=== PATIENT | male | born 1955 | race Caucasian/White ===

== ENCOUNTER → 2019-11-29 09:17 | Outpatient (BNVA) | payer MEDICARE, SELFPAY | PROVIDERS: Visit Provider Psychiatry & Neurology Neurology | DX: G47.33 Obstructive sleep apnea (adult) (pediatric) (principal) | CPT/HCPCS: 99214 ==

== ENCOUNTER → 2020-02-14 09:46 | Outpatient (BNVA) | payer MEDICARE, SELFPAY | PROVIDERS: PCP Family Medicine; Visit Provider Psychiatry & Neurology Neurology | DX: Z13.89 Encounter for screening for other disorder (principal) | CPT/HCPCS: Q3014 ==

== ENCOUNTER → 2020-04-10 09:19 | Outpatient (BNVA) | payer MEDICARE, SELFPAY | PROVIDERS: PCP Family Medicine; Visit Provider Psychiatry & Neurology Neurology | DX: Z13.89 Encounter for screening for other disorder (principal) | CPT/HCPCS: Q3014 ==

== ENCOUNTER 2020-07-02 07:14 | Outpatient (REF) | payer MEDICARE, SELFPAY ==
--- NOTE | ~2020-07-02 | XR_ITS ---
EXAMINATION: BILATERAL HAND X-RAY CLINICAL INFORMATION: Bilateral hand pain COMPARISON: None TECHNIQUE: 3 views of each hand FINDINGS: Bone alignment is normal. No fracture or dislocation is seen. Joint spaces are normal. Soft tissues are normal. XR/XR hand LT min 3V IMPRESSION: Unremarkable exam.
--- NOTE | ~2020-07-02 | XR_ITS ---
EXAMINATION: BILATERAL HAND X-RAY CLINICAL INFORMATION: Bilateral hand pain COMPARISON: None TECHNIQUE: 3 views of each hand FINDINGS: Bone alignment is normal. No fracture or dislocation is seen. Joint spaces are normal. Soft tissues are normal. XR/XR hand RT min 3V IMPRESSION: Unremarkable exam.
[2020-07-02 08:03] LABS: MANUAL DIFF FLAG NO
[2020-07-02 08:12] LABS: Basophils Percent Auto 0.2 % (0-2); Hematocrit 44.4 % (42-52); Hemoglobin 14.7 g/dl (14.0-18.0); Imm Gran Abs Auto 0.01 X10*3/uL (0.00-0.03); Imm Gran Pct Auto 0.2 % (0.0-0.4); Mean Corpuscular HGB Conc 33.1 g/dl (31.0-36.0); Mean Corpuscular Hemoglobin 30.8 pg (27.0-33.0); Mean Corpuscular Volume 92.9 fL (80-98); Mean Platelet Volume 9.5 fL (9.4-12.4); Monocytes Absolute Auto 0.4 X10*3/uL (0.1-1.2); Monocytes Percent Auto 9.9 % (2-11); Neutrophils Absolute Auto 1.7 X10*3/uL (2.0-8.3); Neutrophils Percent Auto 40.7 % (45-73); Platelet Count 207 X10*3/uL (160-400); Red Blood Count 4.78 X10*6/uL (4.60-5.80); Red Cell Distribution Width 12.5 % (11.0-16.0); White Blood Count 4.1 X10*3/uL (4.8-10.8)
[2020-07-02 08:35] LABS: Alanine Aminotransferase 23 U/L (0-40); Albumin Level 4.4 g/dL (3.5-5.0); Alkaline Phosphatase 71 U/L (39-117); Anion Gap 12 (12-20); Aspartate Amino Transferase 20 U/L (5-37); Bilirubin Total 0.4 mg/dL (0.0-1.0); Blood Urea Nitrogen 18 mg/dL (9-16); Calcium 9.1 mg/dL (8.4-10.2); Carbon Dioxide 27 mmol/L (22-29); Chloride 106 mmol/L (96-108); Cholesterol 199 mg/dL; Estimated Glomerular Filt Rate > 60; Glucose Fasting 100 mg/dL (60-99); HDL Cholesterol 35 mg/dL; LDL Cholesterol Calculated 128 mg/dl; Potassium 4.8 mmol/L (3.3-5.1); Rheumatoid Factor < 15.0 IU/mL (<15.0); Sodium 140 mmol/L (135-145); Triglycerides 181 mg/dL
[2020-07-02 08:56] LABS: Prostate Specific Antigen Scr 1.85 ng/mL (<0.05-4.0); TSH reflex Free T4 1.49 uIU/mL (0.32-4.0)
[2020-07-02 08:59] LABS: Glucose Urine UA NEG (NEG); Leukocyte Esterase Urine NEG (NEG); Nitrite Urine NEG (NEG); PH 5.5 (5.0-8.0); Specific Gravity - Urine >= 1.030 (1.005-1.025); Urine Blood TRACE (NEG); Urine Ketones NEG (NEG); Urine Protein NEG (NEG-TRACE)
[2020-07-02 09:01] LABS: Appearance Urine CLEAR; Color Urine YELLOW
[2020-07-02 09:14] LABS: RBC Urine 0-2 /HPF (0); WBC Urine 0 /HPF (0-4)
[2020-07-02 09:23] LABS: Erythrocyte Sedimentation Rate 7 MM/HR (0-15)
[2020-07-04 11:27] LABS: CRP High Sensitivity 1.8 mg/L
[2020-07-06 19:47] LABS: Testosterone, Free 48.7 pg/mL (35.0-155.0); Testosterone, Total 358 ng/dL (250-1100)
== END 2020-07-02 07:15 | disposition home or self-care (01) ==
LOC: HO.LAB 07:14
PROVIDERS: PCP Family Medicine; Visit Provider Family Medicine
DX: Z00.00 Encounter for general adult medical examination without abnormal findings (principal); M79.641 Pain in right hand; M79.642 Pain in left hand; N52.9 Male erectile dysfunction, unspecified; N40.0 Benign prostatic hyperplasia without lower urinary tract symptoms; Z12.5 Encounter for screening for malignant neoplasm of prostate
CPT/HCPCS: 36415; 73130; 80053; 80061; 81001; 81003; 84153; 84402; 84403; 84443; 85025; 85652; 86141; 86431

== ENCOUNTER → 2020-10-30 09:37 | Outpatient (BNVA) | payer MEDICARE, SELFPAY | PROVIDERS: PCP Family Medicine; Visit Provider Psychiatry & Neurology Neurology | DX: G47.33 Obstructive sleep apnea (adult) (pediatric) (principal) | CPT/HCPCS: Q3014 ==

== ENCOUNTER 2020-12-11 08:39 | Outpatient (REF) | payer MEDICARE, SELFPAY ==
[2020-12-11 12:26] LABS: Cholesterol 208 mg/dL; HDL Cholesterol 39 mg/dL; LDL Cholesterol Calculated 140 mg/dl; Triglycerides 145 mg/dL
== END 2020-12-11 08:40 | disposition home or self-care (01) ==
LOC: HO.WFDLDS 08:39
PROVIDERS: PCP Family Medicine; Visit Provider Family Medicine
DX: Z00.00 Encounter for general adult medical examination without abnormal findings (principal); E78.6 Lipoprotein deficiency
CPT/HCPCS: 36415; 80061

== ENCOUNTER → 2021-01-22 10:20 | Outpatient (BNVA) | payer MEDICARE, SELFPAY | PROVIDERS: PCP Family Medicine; Referring Provider Family Medicine; Visit Provider Psychiatry & Neurology Neurology | DX: G47.33 Obstructive sleep apnea (adult) (pediatric) (principal) | CPT/HCPCS: Q3014 ==

== ENCOUNTER 2021-07-15 07:53 | Outpatient (REF) | payer MEDICARE, SELFPAY ==
[2021-07-15 11:07] LABS: MANUAL DIFF FLAG NO
[2021-07-15 11:17] LABS: Hematocrit 42.2 % (42.0-52.0); Hemoglobin 13.7 g/dl (14.0-18.0); Imm Gran Abs Auto 0.02 X10*3/uL (0.00-0.03); Imm Gran Pct Auto 0.4 % (0.0-0.4); Lymphocytes Absolute Auto 2.1 X10*3/uL (1.2-4.9); Lymphocytes Percent Auto 45.5 % (20-40); Mean Corpuscular HGB Conc 32.5 g/dl (31.0-36.0); Mean Corpuscular Hemoglobin 30.9 pg (27.0-33.0); Monocytes Absolute Auto 0.5 X10*3/uL (0.1-1.2); Monocytes Percent Auto 10.3 % (2-11); Neutrophils Percent Auto 43.8 % (45-73); Platelet Count 214 X10*3/uL (160-400); Red Blood Count 4.44 X10*6/uL (4.60-5.80); Red Cell Distribution Width 13.6 % (11.0-16.0); White Blood Count 4.7 X10*3/uL (4.8-10.8)
[2021-07-15 11:20] LABS: Appearance Urine HAZY; Color Urine YELLOW; Glucose Urine UA NEG (NEG); Leukocyte Esterase Urine NEG (NEG); Nitrite Urine NEG (NEG); PH 5.5 (5.0-8.0); Specific Gravity - Urine >= 1.030 (1.005-1.025); Urine Blood NEG (NEG); Urine Ketones NEG (NEG); Urine Protein NEG (NEG-TRACE)
[2021-07-15 11:57] LABS: Alanine Aminotransferase 50 U/L (0-40); Alkaline Phosphatase 59 U/L (39-117); Anion Gap 11 (12-20); Aspartate Amino Transferase 33 U/L (5-37); Bilirubin Total 0.7 mg/dL (0.0-1.0); Blood Urea Nitrogen 16 mg/dL (9-16); Calcium 8.9 mg/dL (8.4-10.2); Carbon Dioxide 29 mmol/L (22-29); Chloride 106 mmol/L (96-108); Cholesterol 202 mg/dL; Estimated Glomerular Filt Rate > 60; Glucose Fasting 106 mg/dL (60-99); HDL Cholesterol 42 mg/dL; LDL Cholesterol Calculated 128 mg/dl; Potassium 4.9 mmol/L (3.3-5.1); Sodium 141 mmol/L (135-145); Total Protein 6.5 g/dL (6.5-8.0); Triglycerides 161 mg/dL
[2021-07-15 12:11] LABS: Prostate Specific Antigen Scr 1.09 ng/mL (<0.05-4.0); TSH reflex Free T4 1.52 uIU/mL (0.32-4.0)
== END 2021-07-15 07:54 | disposition home or self-care (01) ==
LOC: HO.WFDLDS 07:53
PROVIDERS: Visit Provider Family Medicine
DX: Z00.00 Encounter for general adult medical examination without abnormal findings (principal); Z12.5 Encounter for screening for malignant neoplasm of prostate
CPT/HCPCS: 36415; 80053; 80061; 81003; 84153; 84443; 85025

== ENCOUNTER 2021-08-16 07:15 | Outpatient (REF) | payer MEDICARE, SELFPAY ==
[2021-08-16 11:02] LABS: MANUAL DIFF FLAG NO
[2021-08-16 11:15] LABS: Hematocrit 46.9 % (42.0-52.0); Imm Gran Abs Auto 0.03 X10*3/uL (0.00-0.03); Imm Gran Pct Auto 0.3 % (0.0-0.4); Lymphocytes Absolute Auto 4.5 X10*3/uL (1.2-4.9); Lymphocytes Percent Auto 49.7 % (20-40); Mean Corpuscular Hemoglobin 30.4 pg (27.0-33.0); Mean Corpuscular Volume 95.1 fL (80.0-98.0); Mean Platelet Volume 9.7 fL (9.4-12.4); Monocytes Absolute Auto 0.8 X10*3/uL (0.1-1.2); Monocytes Percent Auto 8.7 % (2-11); Neutrophils Absolute Auto 3.7 x10*3/uL (2.0-8.3); Neutrophils Percent Auto 41.3 % (45-73); Platelet Count 261 X10*3/uL (160-400); Red Blood Count 4.93 X10*6/uL (4.60-5.80); Red Cell Distribution Width 13.7 % (11.0-16.0)
[2021-08-16 11:28] LABS: Estimated Average Glucose 100 mg/dL; Hemoglobin A1c % 5.1 %
[2021-08-16 11:34] LABS: Alanine Aminotransferase 20 U/L (0-40); Albumin Level 4.5 g/dL (3.5-5.0); Alkaline Phosphatase 62 U/L (39-117); Anion Gap 13 (12-20); Aspartate Amino Transferase 14 U/L (5-37); Bilirubin Total < 0.2 mg/dL (0.0-1.0); Blood Urea Nitrogen 18 mg/dL (9-16); Calcium 9.2 mg/dL (8.4-10.2); Carbon Dioxide 29 mmol/L (22-29); Chloride 104 mmol/L (96-108); Cholesterol 239 mg/dL; Estimated Glomerular Filt Rate > 60; Glucose Fasting 104 mg/dL (60-99); HDL Cholesterol 55 mg/dL; Iron 71 mcg/dL (45-160); LDL Cholesterol Calculated 156 mg/dl; Percent Iron Saturation 21 % (15-50); Potassium 4.6 mmol/L (3.3-5.1); Sodium 141 mmol/L (135-145); Total Iron Binding Capacity 335 mcg/dL (228-428); Total Protein 7.3 g/dL (6.5-8.0); Triglycerides 141 mg/dL; Unsaturated Iron Binding 264 ug/dL
[2021-08-16 11:55] LABS: TSH reflex Free T4 2.81 uIU/mL (0.32-4.0)
[2021-08-16 12:07] LABS: Folate 10.4 ng/mL (> or = 4.0); Vitamin B12 427 pg/mL (200-900)
== END 2021-08-16 07:16 | disposition home or self-care (01) ==
LOC: HO.WFDLDS 07:15
PROVIDERS: PCP Family Medicine; Visit Provider Family Medicine
DX: Z00.00 Encounter for general adult medical examination without abnormal findings (principal); E53.8 Deficiency of other specified B group vitamins; R73.01 Impaired fasting glucose; D64.9 Anemia, unspecified
CPT/HCPCS: 36415; 80053; 80061; 82607; 82746; 83036; 83540; 84443; 85025

== ENCOUNTER → 2021-09-20 09:03 | Outpatient (BNVA) | payer MEDICARE, SELFPAY | PROVIDERS: PCP Family Medicine; Visit Provider Nurse Practitioner Family | DX: G47.33 Obstructive sleep apnea (adult) (pediatric) (principal) | CPT/HCPCS: Q3014 ==

== ENCOUNTER 2022-10-06 15:43 | Outpatient (AMB) | payer MEDICARE, SELFPAY ==
[2022-10-06 15:51] VITALS: BP 124/78; PULSE 66; O2SAT 96; BMI 26.3
--- NOTE | 2022-10-06 15:51 | MHC.PC.OV ---
Vital Signs 10/06/22 15:51 Height 6 ft Weight 194 lb BMI 26.3 BP 124/78 Blood Pressure Location Lt brachial Position Standing Pulse 66 Pulse Source Pulse Oximeter Pulse Oximetry (%) 96 Oxygen Delivery Method Room Air Intake Visit Reasons: Extended exam Intake Note: Patient is here with concern of bran fog, and vertigo for comes in waves, and lasts about 10 seconds. Allergies aspirin [ASPIRIN] Allergy (Severe, Verified 10/06/22 15:55) RASH SWELLING, hives, swelling Tobacco use date assessed: 11/26/21 Fall risk assessment: No Falls in past year Last assessed Fall Risk: 10/06/22 Dental Screening Dental Screen Date: 10/06/22 Did you have a dental visit in the last 12 months?: Yes Did you have a dental problem in the last 6 months where you did not have access to dental care?: No Was dental information given to patient?: Patient has dentist HPI Extended exam HPI Details 67 y/o male presents for an extended exam with f/u labs and health maintenance. No recent labs to review. He reports ongoing hives and had been covered in [employer] last night. He has been seeing an bad cloth checker for a year and has trialed multiple treatments but states nothing has worked. He suspects it may be something he has been eating. He reports he is on prednisone. HPI Comments History of Present Illness Details Documentation assistance for Erik Azul MD, was provided by Jeff Williamson,? [employer] on 10/06/2022 4:26 PM MARINA. Pauline, Dr. Azul, have read, observed, and verified documentation.? PFSH Medical History Hx of cholelithiasis Surgical History History of back surgery Hx of cholecystectomy Hx of hernia repair Family History Father Renal failure Mother Cancer of pancreas Social History Alcohol intake: current Alcohol intake frequency: holidays/special occasions only Patient Tobacco Use Status: Never used Tobacco e-Cigarette/Vaping Use: Never Used Second Hand Smoke Exposure: No service: No Current occupational exposures/hazards: No Cognitive needs: No Hearing needs: No Vision needs: No Questionnaire TORY-7 AMB Questionnaire TORY-7 Date TORY - 7 assessed: 10/06/22 Feeling nervous, anxious, or on edge: 2 = More than half the days Not being able to stop or control worryin = Not at all Worrying too much about different things: 0 = Not at all Trouble relaxin = Not at all Being so restless that it is hard to sit still: 0 = Not at all Becoming easily annoyed or irritable: 0 = Not at all Feeling afraid as if something awful might happen: 0 = Not at all Total TORY-7 score (0-4 normal; 5-9 mild; 10-14 moderate; 15-21 severe): 2 Source: Developed by Drs. Franki Galvez, Juliann Hoover, Jadon Mathis and colleagues, with an educational christy from [employer]. Review of Systems Const Denies chills, Denies fatigue, Denies fever(s), Denies headache(s) and Denies weakness Eyes Denies change in vision ENT Denies dizziness, Denies headache(s), Denies hearing loss, Denies nasal congestion, Denies sinus pain, Denies sinus pressure and Denies sore throat Card Denies chest pain, Denies lightheadedness, Denies dyspnea and Denies other (palpitations) Resp Denies cough, Denies dyspnea and Denies wheezing GI Denies abdominal pain, Denies melena, Denies hematochezia, Denies change in bowel habits, Denies dyspepsia and Denies nausea Denies hematuria and Denies dysuria Musc Denies abnormal gait, Denies myalgias, Denies arthralgias, Denies numbness and Denies tingling Skin/Breast Reports rash Neuro Denies abnormal gait, Denies dizziness, Denies headache(s), Denies memory loss, Denies numbness, Denies Sensory deficit (Neuro), Denies tingling and Denies weakness Psych Denies anxiety, Denies depression and Denies memory loss Endo Denies cold intolerance, Denies fatigue, Denies heat intolerance, Denies polydipsia and Denies polyuria Paul/Lymph Denies easy bleeding and Denies easy bruising Aller/Immun Denies wheezing Physical exam (Primary Care) Vital Signs: Last Vital Signs Pulse 66 10/06/22 15:51 BP 124/78 10/06/22 15:51 Pulse Ox 96 10/06/22 15:51 Oxygen Delivery Method Room Air 10/06/22 15:51 BMI result Body Mass Index 26.3 Tobacco/Smoking Status: Tobacco use Status Tobacco use date assessed 11/26/21 10/06/22 15:59 Patient Tobacco Use Status Never used Tobacco 10/06/22 15:59 e-Cigarette/Vaping Use Never Used 10/06/22 15:59 Const General: no acute distress, well developed, alert and awake Nutritional Appearance: well nourished Orientation/consciousness: patient oriented x3 HENMT Head: Yes normocephalic and Yes atraumatic Ears: hearing grossly normal bilaterally and TM's normal bilaterally General nose exam: Normal external nose present and Normal nares present Mouth: Normal oral and palatal mucosa present and moist mucous membranes Teeth and gingiva: dentition normal Throat: Yes posterior oropharynx normal Eyes General: appearance normal, both eyes and all related structures Pupils: Equal, round and reactive pupils present and Pupil accommodation reflex normal EOM: EOMs intact bilaterally Neck Neck: Yes normal visual inspection, Yes no lymphadenopathy and Yes trachea midline Thyroid: Thyroid normal Carotids: no bruits Lymphatic: no lymphadenopathy noted Chest Chest palpation & inspection: normal inspection of the chest Resp Effort & Inspection: normal respiratory effort Auscultation: clear to auscultation bilaterally Cardio Rate: regular rate Rhythm: regular rhythm Heart sounds: S1 normal heart sound present, S2 normal heart sound present, no gallops, no murmurs and no rubs Bruits: no abdominal aortic bruits and no carotid bruits GI Palpation (GI): No Abdominal aortic bruit present, Soft to palpation, nontender, No hepatosplenomegaly present and No Rebound tenderness present Auscultation: normal bowel sounds General: Yes no CVA tenderness Back/Spine/Pelvis Back: no CVA tenderness Cervical Spine: cervical ROM normal and No Cervical spine tenderness Thoracic/Lumbar Spine: thoraco-lumbar ROM normal, No pain with thoraco-lumbar ROM, No thoracic spinal tenderness and No lumbar spinal tenderness Skin Other: Hives on his body, face Lesions: no lesions Trauma: no lacerations or abrasions Wounds: no wounds Nails: normal Neuro General: patient oriented x3 Cranial nerves: Yes Equal, round and reactive pupils present Cognition (Neuro): normal cognition Gait exam (Neuro): Normal gait present Motor exam (neuro): 5/5 motor strength present throughout Sensory Exam: No Sensory deficit (Neuro) Deep tendon reflexes (DTR's): Right patellar reflex intensity grade: 2+ and Left patellar reflex intensity grade: 2+ Extrem General: Yes normal to inspection and No edema Psych Appearance: grossly normal Affect: normal affect Attitude: cooperative Thought process: Normal thought process present Assessment and Plan Assessment & Plan (1) Urticaria: Code(s): L50.9 - Urticaria, unspecified Plan: Ongoing chronic urticaria Followed by immunology. Patient feels that this is due to gastrointestinal issues and requests a referral to gastroenterology. Referral is made Will also run tests for inflammatory markers and some autoimmune markers. (2) Memory changes: Code(s): R41.3 - Other amnesia Plan: Follow-up by neuropsych who feels that many of the medications he is using may be affecting memory Also sleep apnea and is using his CPAP. (3) Screening for prostate cancer: Code(s): Z12.5 - Encounter for screening for malignant neoplasm of prostate Plan: Check PSA (4) Screening for colon cancer: Code(s): Z12.11 - Encounter for screening for malignant neoplasm of colon Plan: Referred to GI (5) Adult general medical exam: Code(s): Z00.00 - Encounter for general adult medical examination without abnormal findings Plan: 67-year-old male presents for an extended exam Orders: Orders Comprehensive [place]. Panel Fast 10/07/22 Z00.00 - Encounter for general adult medical examination without abnormal findings Lipid Panel 10/07/22 Z00.00 - Encounter for general adult medical examination without abnormal findings Prostate Specific Antigen Scr 10/07/22 Z12.5 - Encounter for screening for malignant neoplasm of prostate TSH reflex Free T4 10/07/22 Z00.00 - Encounter for general adult medical examination without abnormal findings Microalbumin, Random (w Creat) 10/07/22 I10 - Essential (primary) hypertension Complete Blood Count Auto Diff 10/07/22 Z00.00 - Encounter for general adult medical examination without abnormal findings UA and rflx microscopic 10/07/22 Z00.00 - Encounter for general adult medical examination without abnormal findings Cyclic Citrullinated Peptide 10/07/22 L50.9 - Urticaria, unspecified CRP High Sensitivity 10/07/22 L50.9 - Urticaria, unspecified Rheumatoid Factor 10/07/22 L50.9 - Urticaria, unspecified Erythrocyte Sedimentation Rate 10/07/22 L50.9 - Urticaria, unspecified ANNIKA Reflex Titer and Pattern 10/07/22 L50.9 - Urticaria, unspecified Scleroderma 70 Antibody 10/07/22 L50.9 - Urticaria, unspecified Transglutaminase IgA 10/07/22 L50.9 - Urticaria, unspecified Transglutaminase Ab IgG 10/07/22 L50.9 - Urticaria, unspecified Coding Level of Care Code Est Pt Level 4 (39358) Diagnoses Urticaria L50.9 Memory changes R41.3 Screening for prostate cancer Z12.5 Screening for colon cancer Z12.11 Adult general medical exam Z00.00
== END 2022-10-06 17:02 | disposition home or self-care (01) ==
PROVIDERS: Visit Provider Family Medicine
DX: L50.9 Urticaria, unspecified (principal); R41.3 Other amnesia; Z12.5 Encounter for screening for malignant neoplasm of prostate; Z12.11 Encounter for screening for malignant neoplasm of colon; Z00.00 Encounter for general adult medical examination without abnormal findings
CPT/HCPCS: 99214

== ENCOUNTER 2022-10-07 07:03 | Outpatient (REF) | payer MEDICARE, SELFPAY ==
[2022-10-07 11:28] LABS: MANUAL DIFF FLAG NO
[2022-10-07 11:35] LABS: Appearance Urine Clear; Color Urine Yellow; Glucose Urine UA Negative (Negative); Leukocyte Esterase Urine Negative (Negative); Nitrite Urine Negative (Negative); PH 5.5 (5.0-9.0); Specific Gravity - Urine 1.025 (1.005-1.025); Urine Blood Negative (Negative); Urine Ketones Trace mg/dL (Negative); Urine Protein Negative (Neg-Trace)
[2022-10-07 11:56] LABS: Basophils Percent Auto 0.2 % (0-2); Hematocrit 41.8 % (42.0-52.0); Hemoglobin 13.8 g/dl (14.0-18.0); Imm Gran Abs Auto 0.02 X10*3/uL (0.00-0.03); Imm Gran Pct Auto 0.3 % (0.0-0.4); Lymphocytes Absolute Auto 2.9 X10*3/uL (1.2-4.9); Mean Corpuscular Volume 93.9 fL (80.0-98.0); Monocytes Absolute Auto 0.5 X10*3/uL (0.1-1.2); Monocytes Percent Auto 8.1 % (2-11); Neutrophils Absolute Auto 2.8 x10*3/uL (2.0-8.3); Neutrophils Percent Auto 44.4 % (45-73); Platelet Count 260 X10*3/uL (160-400); Red Blood Count 4.45 X10*6/uL (4.60-5.80); Red Cell Distribution Width 13.2 % (11.0-16.0); White Blood Count 6.2 X10*3/uL (4.8-10.8)
[2022-10-07 12:18] LABS: Alanine Aminotransferase 15 U/L (0-40); Albumin Level 4.2 g/dL (3.5-5.0); Alkaline Phosphatase 50 U/L (39-117); Anion Gap 13 (12-20); Aspartate Amino Transferase 17 U/L (5-37); Bilirubin Total 0.5 mg/dL (0.0-1.0); Blood Urea Nitrogen 17 mg/dL (9-16); Calcium 9.7 mg/dL (8.4-10.2); Carbon Dioxide 26 mmol/L (22-29); Chloride 108 mmol/L (96-108); Cholesterol 193 mg/dL (<200); Estimated Glomerular Filt Rate > 60; Glucose Fasting 91 mg/dL (60-99); HDL Cholesterol 47 mg/dL (>40); LDL Cholesterol Calculated 124 mg/dL (<100); Potassium 3.9 mmol/L (3.3-5.1); Sodium 143 mmol/L (135-145); Total Protein 6.7 g/dL (6.5-8.0); Triglycerides 111 mg/dL (<150)
[2022-10-07 12:21] LABS: TSH reflex Free T4 3.28 uIU/mL (0.32-4.0)
[2022-10-07 12:23] LABS: Microalbum/Creatinine Ratio Ur 2.6 ug/mg cr (<30)
[2022-10-07 12:26] LABS: Prostate Specific Antigen Scr 1.06 ng/mL (<0.05-4.0)
[2022-10-07 12:31] LABS: Prostate Specific Antigen Scr 1.09 ng/mL (<0.05-4.0); Rheumatoid Factor < 13.0 IU/mL (<15.0)
[2022-10-07 12:39] LABS: Erythrocyte Sedimentation Rate 4 MM/HR (0-15)
[2022-10-08 14:48] LABS: CRP High Sensitivity 0.6 mg/L
[2022-10-09 13:54] LABS: Scleroderma 70 Antibody <1.0 NEG AI (<1.0 NEG)
[2022-10-09 14:28] LABS: Anti Nuclear Antibody Screen NEGATIVE (NEGATIVE)
[2022-10-09 15:24] LABS: Cyclic Citrullinated Peptide <16 UNITS
== END 2022-10-07 07:04 | disposition home or self-care (01) ==
LOC: HO.WFDLDS 07:03
PROVIDERS: Visit Provider Family Medicine
DX: Z00.00 Encounter for general adult medical examination without abnormal findings (principal); Z12.5 Encounter for screening for malignant neoplasm of prostate; I10 Essential (primary) hypertension; L50.9 Urticaria, unspecified
CPT/HCPCS: 36415; 80053; 80061; 81003; 82043; 84153; 84443; 85025; 85652; 86038; 86141; 86200; 86235; 86431

== ENCOUNTER 2022-10-22 14:36 | Outpatient (AMB) | payer MEDICARE, SELFPAY ==
--- NOTE | 2022-10-22 14:23 | MHC.PC.OV ---
Intake Visit Reasons: f/u CPE-labs Intake Note: Patient reports this telehealth appointment is to discuss labs drawn on 10/07/22. Allergies aspirin [ASPIRIN] Allergy (Severe, Verified 10/22/22 14:25) RASH SWELLING, hives, swelling Tobacco use date assessed: 10/22/22 Fall risk assessment: No Falls in past year Last assessed Fall Risk: 10/22/22 Dental Screening Dental Screen Date: 10/22/22 Did you have a dental visit in the last 12 months?: Yes Did you have a dental problem in the last 6 months where you did not have access to dental care?: No Was dental information given to patient?: Patient has dentist HPI f/u CPE-labs HPI Details 67 y/o male presents to f/u CPE-labs via telemedicine. Labs were drawn 10/07/22. Reviewed labs with pt. Mild anemia. Triglycerides 111. TC 193. LDL 124. HDL 47. He continues to work on his diet and notes he has lost about 20 lbs. [facility] Medical History Hx of cholelithiasis Surgical History History of back surgery Hx of cholecystectomy Hx of hernia repair Family History Father Renal failure Mother Cancer of pancreas Social History Housing: House Alcohol intake: current Alcohol intake frequency: holidays/special occasions only Patient Tobacco Use Status: Never used Tobacco e-Cigarette/Vaping Use: Never Used Second Hand Smoke Exposure: No service: No Current occupational exposures/hazards: No Cognitive needs: No Hearing needs: No Vision needs: No Questionnaire TORY-7 AMB Questionnaire TORY-7 Date TORY - 7 assessed: 10/06/22 Source: Developed by Drs. Franki Galvez, Juliann Hoover, Jadon Mathis and colleagues, with an educational christy from [employer]. Review of Systems Const Denies chills, Denies fatigue, Denies fever(s), Denies headache(s) and Denies weakness ENT Denies dizziness and Denies headache(s) Card Denies dyspnea Resp Denies cough, Denies dyspnea, Denies wheezing and Denies other (shortness of breath) Musc Denies numbness and Denies tingling Neuro Denies dizziness, Denies headache(s), Denies numbness, Denies tingling and Denies weakness Psych Denies anxiety and Denies depression Endo Denies fatigue Aller/Immun Denies wheezing Physical exam (Primary Care) Tobacco/Smoking Status: Tobacco use Status Tobacco use date assessed 10/22/22 10/22/22 14:27 Patient Tobacco Use Status Never used Tobacco 10/22/22 14:27 e-Cigarette/Vaping Use Never Used 10/22/22 14:27 Telehealth Telehealth Location of provider rendering services: practice address Location of patient: address on file Patient Identification confirmed using: Name, : Yes Telehealth method: voice only Patient verbally consented to treatment: Yes Patient verbally consented to billing insurance company: Yes Patient informed of any privacy concerns related to visit: Yes Minutes spent on Phone/Video with Pt.: 15 Assessment and Plan Assessment & Plan (1) Mild anemia: Code(s): D64.9 - Anemia, unspecified Plan: Patient denies bleeding Repeat blood counts (2) Screening for prostate cancer: Code(s): Z12.5 - Encounter for screening for malignant neoplasm of prostate Plan: PSA within normal limits (3) Urticaria: Code(s): L50.9 - Urticaria, unspecified Plan: Ongoing urticaria Inflammatory markers negative and initial autoimmune markers negative Patient was seen by immunology and he says this did not find any problems or help Has seen dermatology He has been referred to Rheumatology but he has not heard back from them yet. Will ask the office to check on the status of this referral (4) Screening for colon cancer: Code(s): Z12.11 - Encounter for screening for malignant neoplasm of colon Plan: Patient id as had polyps at last colonoscopy which he thinks was about [address] Montes. Will get report Orders: Orders Complete Blood Count Auto Diff Today D64.9 - Anemia, unspecified, Z00.00 - Encounter for general adult medical examination without abnormal findings Reticulocyte Count Today D64.9 - Anemia, unspecified Vitamin B12 and Folate Today D64.9 - Anemia, unspecified, E53.8 - Deficiency of other specified B group vitamins Basic Metabolic Panel Today D64.9 - Anemia, unspecified, Z00.00 - Encounter for general adult medical examination without abnormal findings IRON PROFILE Today D64.9 - Anemia, unspecified Coding Level of Care Code Tele Est Pt Level 2 (23996) Diagnoses Mild anemia D64.9 Screening for prostate cancer Z12.5 Urticaria L50.9 Screening for colon cancer Z12.11
== END 2022-10-22 16:08 | disposition home or self-care (01) ==
PROVIDERS: PCP Family Medicine; Visit Provider Family Medicine
DX: D64.9 Anemia, unspecified (principal); Z12.5 Encounter for screening for malignant neoplasm of prostate; L50.9 Urticaria, unspecified; Z12.11 Encounter for screening for malignant neoplasm of colon
CPT/HCPCS: 99442

== ENCOUNTER 2022-10-24 09:02 | Outpatient (REF) | payer MEDICARE, SELFPAY ==
[2022-10-24 11:23] LABS: MANUAL DIFF FLAG NO
[2022-10-24 11:44] LABS: Hematocrit 43.1 % (42.0-52.0); Hemoglobin 14.1 g/dl (14.0-18.0); Imm Gran Abs Auto 0.01 X10*3/uL (0.00-0.03); Imm Gran Pct Auto 0.2 % (0.0-0.4); Immature Retic Fraction 11.1 % (2.3-13.4); Lymphocytes Absolute Auto 1.8 X10*3/uL (1.2-4.9); Lymphocytes Percent Auto 42.1 % (20-40); Mean Corpuscular HGB Conc 32.7 g/dl (31.0-36.0); Mean Corpuscular Volume 94.7 fL (80.0-98.0); Mean Platelet Volume 9.8 fL (9.4-12.4); Monocytes Absolute Auto 0.4 X10*3/uL (0.1-1.2); Monocytes Percent Auto 10.3 % (2-11); Neutrophils Percent Auto 47.4 % (45-73); Platelet Count 208 X10*3/uL (160-400); Red Blood Count 4.55 X10*6/uL (4.60-5.80); Red Cell Distribution Width 13.3 % (11.0-16.0); Retic HGB Equivalent 35.7 pg (30.0-35.0); Reticulocyte Percent 0.9 % (0.5-1.8); Reticulocytes Absolute 0.042 X10*6/uL (0.026-0.095); White Blood Count 4.3 X10*3/uL (4.8-10.8)
[2022-10-24 12:21] LABS: Anion Gap 11 (12-20); Blood Urea Nitrogen 13 mg/dL (9-16); Carbon Dioxide 27 mmol/L (22-29); Chloride 104 mmol/L (96-108); Estimated Glomerular Filt Rate > 60; Glucose Random 164 mg/dL (60-115); Iron 93 mcg/dL (45-160); Percent Iron Saturation 34 % (15-50); Potassium 4.3 mmol/L (3.3-5.1); Sodium 138 mmol/L (135-145); Total Iron Binding Capacity 275 mcg/dL (228-428); Unsaturated Iron Binding 182 ug/dL
[2022-10-24 13:01] LABS: Folate 7.5 ng/mL (> or = 4.0); Vitamin B12 523 pg/mL (200-900)
[2022-10-30 13:13] LABS: Transglutaminase Ab IgG 1.1 U/mL; Transglutaminase IgA <1.0 U/mL
== END 2022-10-24 09:03 | disposition home or self-care (01) ==
LOC: HO.WFDLDS 09:02
PROVIDERS: Visit Provider Family Medicine
DX: Z00.00 Encounter for general adult medical examination without abnormal findings (principal); L50.9 Urticaria, unspecified; E53.8 Deficiency of other specified B group vitamins; D64.9 Anemia, unspecified
CPT/HCPCS: 36415; 80048; 82607; 82746; 83540; 85025; 85045; 86364

== ENCOUNTER 2023-09-03 11:24 | Outpatient (AMB) | payer MEDICARE, SELFPAY ==
--- NOTE | 2023-09-03 11:36 | MHC.PC.OV ---
Vital Signs 09/03/23 11:42 Weight 203 lb 6 oz BP 124/74 Blood Pressure Location Lt brachial Position Sitting Respiration 16 Pulse 67 Pulse Source Pulse Oximeter Temp 97.9 F Temp Source Oral Pulse Oximetry (%) 97 Oxygen Delivery Method Room Air Intake Visit Reasons: HDF ~ Post hospital discharge FU Intake Note: patient here for post hospital discharge follow up. Side Laster Staple Required: No Allergies aspirin [ASPIRIN] Allergy (Severe, Verified 09/03/23 11:41) RASH SWELLING, hives, swelling Medication List - Last Reconciled 09/03/23 by Mary Aguilera, FISH SMOKER- diphenhydramine HCl (Benadryl) 25 mg PO BEDTIME PRN Tobacco use date assessed: 09/03/23 Fall risk assessment: 1 Fall in past year Last assessed Fall Risk: 09/03/23 Dental Screening Dental Screen Date: 10/22/22 HPI HPI Comments History of Present Illness Details 68-year-old male here today for hospital discharge follow up. He was seen at [facility] on 08/28/2023 for syncope and collapse. The records indicate that he had a witnessed syncopal episode while at the park after drinking alcohol and smoking marijuana. The episode was witnessed by his . It is reported that he only had seconds of unresponsiveness with a quick returned to normal baseline. The records also indicate that he takes daily Benadryl for idiopathic urticaria. The discharge summary was reviewed. His workup included labs which were significant for mild anemia, mild elevation in his lipase, otherwise normal electrolytes, negative high sensitivity troponin x2 CT of the head showed no acute intracranial pathology EKG was normal sinus rhythm. He was treated with IV fluids. He was monitored on telemetry with no dysrhythmia. Admission for observation was offered however patient declined. No medication changes were made at the time of the discharge. Today in the office he tells me that this event happened outside within a short period of taking Benadryl and having 2 cocktails close together. Reports that he was talking to a friend and saw fire works inside of his brain . Then sat down. He went to stand and this is when he syncopized. Reports that he was down for 5 minutes. His told him that his eyes were open but appeared blank. Denies any seizure activity. 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 He reports when he awoke he had no strength and was profusely sweating. Since this episode he has had no further syncopal episodes. However he overall feels woozy and can have worsening woozy sensation with position changes. He feels he hydrates well. He admits a lot of anxiety related to this health event. He also reports lots of stressors to include a sick grandchild. He has had a poor sleep pattern. He also has idiopathic urticaria for which she takes chronic Benadryl. Admits that the Benadryl knocks him out in makes him feel very very tired however does not feel like can be without it. Be that as it may he does not correlate this episode with his Benadryl use. He also admits that he did take 1 hit of marijuana. Admits this is not something new for him. And does not contribute this to the event either. Reviewed his labs from the emergency room as well as trending back in 2020 which do show some mild anemia. The patient denies any overt bleeding. Reports that he is up-to-date on his colonoscopies. He has had 2 to date and will have his 3rd colonoscopy next month. He denies any fever, chills, loss of vision, chest pain, shortness of breath. Other than the Benadryl he was only taking a supplement. Physical exam Awake alert oriented, no acute distress Head atraumatic PERRLA, conjunctiva mildly injected bilat, sclera nonicteric bilat Mucous membranes moist Regular rate and rhythm Lung sounds clear to auscultation bilat. Patient reports that he feels woozy when taking the deep breaths during the exam. This resolved on its own within seconds. No orthostasis started on exam today Anxious yet cooperative and appropriate Plan: Labs done today: CBC, reticulocyte count, iron profile, amylase, lipase, B12 and folate all within normal limits today Three day Holter monitor to check for underlying arrhythmia Trial hydroxyzine 10 mg PO TID prn not only to help with the urticaria balls of the anxiety that he endorses. Made aware that he should not take this alongside Benadryl. Should he have recurrent syncope, chest pain he was advised to seek emergency room level of care. Otherwise I do recommend a close follow up in 2 weeks with his primary care provider, sooner as needed. This note is constructed using voice recognition software. While every effort has been made to ensure accuracy in medical advisor, still errors may have been included Sometimes, these errors may affect the content or meaning of the given sentence . Total time spent caring for the patient today was 45 minutes. This includes time spent before the visit reviewing the chart, time spent during the visit, and time spent after the visit on documentation [facility] Medical History Hx of cholelithiasis Surgical History History of back surgery Hx of cholecystectomy Hx of hernia repair Family History Father Renal failure Mother Cancer of pancreas Social History Housing: House Alcohol intake: current Alcohol intake frequency: holidays/special occasions only Patient Tobacco Use Status: Never used Tobacco e-Cigarette/Vaping Use: Never Used Second Hand Smoke Exposure: No service: No Current occupational exposures/hazards: No Cognitive needs: No Hearing needs: No Vision needs: No Questionnaire TORY-7 AMB Questionnaire TORY-7 Date TORY - 7 assessed: 10/06/22 Source: Developed by Drs. Franki Galvez, Juliann Hoover, Jadon Mathis and colleagues, with an educational christy from [employer]. Physical exam (Primary Care) Vital Signs: Last Vital Signs Temp 97.9 F 09/03/23 11:42 Pulse 67 09/03/23 11:42 Resp 16 09/03/23 11:42 BP 124/74 09/03/23 11:42 Pulse Ox 97 09/03/23 11:42 Oxygen Delivery Method Room Air 09/03/23 11:42 Tobacco/Smoking Status: Tobacco use Status Tobacco use date assessed 09/03/23 09/03/23 11:43 Patient Tobacco Use Status Never used Tobacco 09/03/23 11:39 e-Cigarette/Vaping Use Never Used 09/03/23 11:39 Assessment and Plan Assessment & Plan (1) Hospital discharge follow-up: Code(s): Z09 - Encounter for follow-up examination after completed treatment for conditions other than malignant neoplasm (2) Syncope and collapse: Code(s): R55 - Syncope and collapse (3) Mild anemia: Code(s): D64.9 - Anemia, unspecified (4) Generalized anxiety disorder: Code(s): F41.1 - Generalized anxiety disorder Orders: Orders ECG 3 day holter monitor Today D64.9 - Anemia, unspecified, R55 - Syncope and collapse IRON PROFILE Today D64.9 - Anemia, unspecified, R55 - Syncope and collapse Vitamin B12 and Folate Today D64.9 - Anemia, unspecified, R55 - Syncope and collapse Ferritin Today D64.9 - Anemia, unspecified, R55 - Syncope and collapse Reticulocyte Count Today D64.9 - Anemia, unspecified, R55 - Syncope and collapse Amylase Today D64.9 - Anemia, unspecified, R55 - Syncope and collapse Lipase Today D64.9 - Anemia, unspecified, R55 - Syncope and collapse Complete Blood Count no Diff Today D64.9 - Anemia, unspecified, R55 - Syncope and collapse Medications: New hydroxyzine HCl 10 mg PO TID PRN 30 tabs 0RF anxiety or hives Coding Level of Care Code Est Pt Level 5 (04110) Diagnoses Hospital discharge follow-up Z09 Syncope and collapse R55 Mild anemia D64.9 Generalized anxiety disorder F41.1
[2023-09-03 11:42] VITALS: BP 124/74; PULSE 67; RESP 16; TEMP 36.6; O2SAT 97
== END 2023-09-03 12:20 | disposition home or self-care (01) ==
PROVIDERS: PCP Family Medicine; Visit Provider Nurse Practitioner Family
DX: R55 Syncope and collapse (principal); D64.9 Anemia, unspecified; F41.1 Generalized anxiety disorder; Z09 Encounter for follow-up examination after completed treatment for conditions other than malignant neoplasm
CPT/HCPCS: 99214

== ENCOUNTER 2023-09-03 12:34 | Outpatient (REF) | payer MEDICARE, SELFPAY ==
[2023-09-03 14:08] LABS: Hematocrit 44.4 % (42.0-52.0); Hemoglobin 14.9 g/dl (14.0-18.0); Immature Retic Fraction 13.4 % (2.3-13.4); Mean Corpuscular HGB Conc 33.6 g/dl (31.0-36.0); Mean Corpuscular Hemoglobin 31.4 pg (27.0-33.0); Mean Corpuscular Volume 93.7 fL (80.0-98.0); Mean Platelet Volume 9.7 fL (9.4-12.4); Platelet Count 214 X10*3/uL (160-400); Red Blood Count 4.74 X10*6/uL (4.60-5.80); Red Cell Distribution Width 12.8 % (11.0-16.0); Retic HGB Equivalent 35.3 pg (30.0-35.0); Reticulocyte Percent 1.3 % (0.5-1.8); Reticulocytes Absolute 0.064 X10*6/uL (0.026-0.095)
[2023-09-03 14:27] LABS: Iron 116 mcg/dL (45-160); Lipase 47 U/L (8-78); Percent Iron Saturation 39 % (15-50); Total Iron Binding Capacity 299 mcg/dL (228-428); Unsaturated Iron Binding 183 ug/dL
[2023-09-03 14:32] LABS: Amylase 74 U/L (28-100)
[2023-09-03 14:53] LABS: Ferritin 205 ng/mL (20-250); Folate 10.3 ng/mL (> or = 4.0); Vitamin B12 463 pg/mL (200-900)
== END 2023-09-03 12:35 | disposition home or self-care (01) ==
LOC: HO.WFDLDS 12:34
PROVIDERS: Visit Provider Nurse Practitioner Family
DX: R55 Syncope and collapse (principal); D64.9 Anemia, unspecified
CPT/HCPCS: 36415; 82150; 82607; 82728; 82746; 83540; 83690; 85027; 85045

== ENCOUNTER → 2023-09-09 09:54 | Outpatient (REF) | payer MEDICARE, SELFPAY ==
--- NOTE | 2023-09-09 09:57 | HM_ITS ---
* Total monitoring time 3 days. * Underlying rhythm is sinus with an average rate of 64/Min. * Rare supraventricular ectopy. * Rare ventricular ectopy. * No significant pauses or AV blocks. * Patient markers used twice, in association with sinus rhythm. * Lightheadedness in patient diary correlates with sinus rhythm. Some entries not available due to lead disconnect. MTDD
== END ==
LOC: HO.CARD 09:54
PROVIDERS: PCP Family Medicine; Visit Provider Nurse Practitioner Family
DX: R55 Syncope and collapse (principal); D64.9 Anemia, unspecified
CPT/HCPCS: 93242

== ENCOUNTER → 2023-09-09 09:57 | Outpatient (BNV) | payer MEDICARE, SELFPAY | PROVIDERS: PCP Family Medicine; Visit Provider Internal Medicine | DX: I47.10 Supraventricular tachycardia, unspecified (principal); I49.3 Ventricular premature depolarization | CPT/HCPCS: 93244 ==

== ENCOUNTER 2023-09-15 09:20 | Outpatient (AMB) | payer MEDICARE, SELFPAY ==
--- NOTE | 2023-09-15 09:37 | A.OFFPC_ITS ---
Vital Signs 09/15/23 09:39 Height 5 ft 9.69 in Weight 201 lb 8 oz BMI 29.2 BP 130/60 Blood Pressure Location Lt brachial Position Sitting Respiration 16 Pulse 75 Pulse Source Pulse Oximeter Temp 98.0 F Temp Source Tympanic Pulse Oximetry (%) 98 Oxygen Delivery Method Room Air Intake Visit Reasons: Syncope FU Intake Note: syncope follow up,covid rule out Allergies aspirin [ASPIRIN] Allergy (Severe, Verified 09/15/23 09:37) RASH SWELLING, hives, swelling Tobacco use date assessed: 09/03/23 Dental Screening Dental Screen Date: 10/22/22 HPI Syncope FU HPI Details 68 y/o male presents to f/u syncope. Had been to the emergency department 08/28/23 with complaints of syncope and dizziness. Had felt lightheaded, weak/sweaty at a park. Had reported EtOH/MJ use earlier that day. Labs were reassuring. Was given IV fluids with improvement of symptoms. No?further?syncope?or?dizziness?symptoms-this?seems?to?have?resolved Pt feels unwell today. Has ongoing issues with fatigue. [facility] Medical History Hx of cholelithiasis Surgical History History of back surgery Hx of cholecystectomy Hx of hernia repair Family History Father Renal failure Mother Cancer of pancreas Social History Housing: House Alcohol intake: current Alcohol intake frequency: holidays/special occasions only Patient Tobacco Use Status: Never used Tobacco e-Cigarette/Vaping Use: Never Used Second Hand Smoke Exposure: No service: No Current occupational exposures/hazards: No Cognitive needs: No Hearing needs: No Vision needs: No Questionnaire TORY-7 AMB Questionnaire TORY-7 Date TORY - 7 assessed: 10/06/22 Source: Developed by Drs. Franki Galvez, Juliann Hoover, Jadon Mathis and colleagues, with an educational christy from [employer]. Review of Systems Const Denies chills, Reports fatigue, Denies fever(s), Denies headache(s) and Denies weakness ENT Denies dizziness and Denies headache(s) Card Denies dyspnea Resp Denies cough, Denies dyspnea, Denies wheezing and Denies other (shortness of breath) Musc Denies numbness and Denies tingling Neuro Denies dizziness, Denies headache(s), Denies numbness, Denies tingling and D enies weakness Psych Denies anxiety and Denies depression Endo Reports fatigue Aller/Immun Denies wheezing Physical exam (Primary Care) Vital Signs: Last Vital Signs Temp 98.0 F 09/15/23 09:39 Pulse 75 09/15/23 09:39 Resp 16 09/15/23 09:39 BP 130/60 09/15/23 09:39 Pulse Ox 98 09/15/23 09:39 Oxygen Delivery Method Room Air 09/15/23 09:39 BMI result Body Mass Index 29.2 Tobacco/Smoking Status: Tobacco use Status Tobacco use date assessed 09/03/23 09/15/23 09:42 Patient Tobacco Use Status Never used Tobacco 09/15/23 09:42 e-Cigarette/Vaping Use Never Used 09/15/23 09:42 Const General: well developed; No acute distress Nutritional Appearance: well nourished Orientation/consciousness: patient oriented x3 HENMT Head: Yes normocephalic and Yes atraumatic Eyes General: appearance normal, both eyes and all related structures Pupils: Equal, round and reactive pupils present EOM: EOMs intact bilaterally Resp Effort & Inspection: normal respiratory effort Auscultation: clear to auscultation bilaterally Cardio Rate: regular rate Rhythm: regular rhythm Heart sounds: S1 normal heart sound present, S2 normal heart sound present, no gallops, no murmurs and no rubs Neuro General: patient oriented x3 and gait normal Cranial nerves: Yes Equal, round and reactive pupils present Psych Affect: normal affect Assessment and Plan Assessment & Plan (1) Syncope: Code(s): R55 - Syncope and collapse Plan: Patient?had?a?single?episode?of?syncope. He?notes?that?he?use?Benadryl?at?an?unusual?time?of?day?and?also?had?some?alcoho l?and?also? Hospital?hermilo p?was?unremarkable.??EKG?and?monitoring?as?well?as?troponin?levels?were?negative .??No?evidence?of?seizure?or?seizure-like?activity. Outpatient?Holter?monitor?testing?was?negative Advised?he?avoid?using?these?in?conjunction Hydrate?well (2) Dizziness: Code(s): R42 - Dizziness and giddiness Plan: Appears?to?have?resolved (3) Viral illness: Code(s): B34.9 - Viral infection, unspecified Plan: Significant?achy?muscles?and?patient?is?concern?regarding?viral?illness Checking?COVID/flu/RSV (4) Fatigue: Code(s): R53.83 - Other fatigue Plan: Ongoing?fatigue Patient?says?he?goes?to?sleep?around?945.??He?uses?his?CPAP?machine.??He?says?he ?wakes?up?around?02:00?o'clock?each?night?and?is?unable?to?sleep?after?that Will?try?some?trazodone Advised?he?avoid?using?trazodone?and?hydroxyzine?together?in?the?evening (5) Left foot pain: Code(s): M79.672 - Pain in left foot Plan: Left?Achilles?tendon?pain?and?nodule Start?physical?therapy (6) Urticaria: Code(s): L50.9 - Urticaria, unspecified Plan: Much?improved?with?switching?Benadryl?to?hydroxyzine Continue?hydroxyzine Continue?to?monitor?environment?for?triggers?and?avoid Orders: Orders PT Evaluation and Treatment Today M76.60 - Achilles tendinitis, unspecified leg Medications: New trazodone 25 mg (1/2 x 50 mg) PO BEDTIME 30 days PRN 30 tabs 1RF sleep Coding Level of Care Code Est Pt Level 3 (94419) Diagnoses Syncope R55 Dizziness R42 Viral illness B34.9 Fatigue R53.83 Left foot pain M79.672 Urticaria L50.9
[2023-09-15 09:39] VITALS: BP 130/60; PULSE 75; RESP 16; TEMP 36.7; O2SAT 98; BMI 29.2
== END 2023-09-15 10:14 | disposition home or self-care (01) ==
PROVIDERS: PCP Family Medicine; Visit Provider Family Medicine
DX: R55 Syncope and collapse (principal); R42 Dizziness and giddiness; B34.9 Viral infection, unspecified; R53.83 Other fatigue; M79.672 Pain in left foot; L50.9 Urticaria, unspecified
CPT/HCPCS: 99213

== ENCOUNTER 2023-09-15 10:24 | Outpatient (REF) | payer MEDICARE, SELFPAY | END 2023-09-15 10:25 | disposition home or self-care (01) | LOC: HO.LAB 10:24 | PROVIDERS: Visit Provider Family Medicine | DX: Z13.89 Encounter for screening for other disorder (principal) ==

== ENCOUNTER 2023-09-15 10:30 | Outpatient (REF) | payer MEDICARE, SELFPAY ==
[2023-09-15 15:04] LABS: Influenza A PCR NEGATIVE (Negative); Influenza B PCR NEGATIVE (Negative); Resp Syncy Virus RNA Qual PCR NEGATIVE (Negative); SARS COV2 PCR INHOUSE NEGATIVE (Negative)
== END 2023-09-15 10:31 | disposition home or self-care (01) ==
LOC: HO.WFDLDS 10:30
PROVIDERS: Visit Provider Family Medicine
DX: Z20.822 Contact with and (suspected) exposure to COVID-19 (principal); B34.9 Viral infection, unspecified
CPT/HCPCS: 0241U

== ENCOUNTER 2023-09-17 07:38 | Outpatient (REF) | payer MEDICARE, SELFPAY ==
[2023-09-17 11:03] LABS: MANUAL DIFF FLAG NO
[2023-09-17 11:16] LABS: Hematocrit 39.9 % (42.0-52.0); Hemoglobin 13.6 g/dl (14.0-18.0); Imm Gran Abs Auto 0.01 X10*3/uL (0.00-0.03); Imm Gran Pct Auto 0.3 % (0.0-0.4); Lymphocytes Absolute Auto 1.9 X10*3/uL (1.2-4.9); Lymphocytes Percent Auto 48.6 % (20-40); Mean Corpuscular HGB Conc 34.1 g/dl (31.0-36.0); Mean Corpuscular Hemoglobin 31.5 pg (27.0-33.0); Mean Corpuscular Volume 92.4 fL (80.0-98.0); Mean Platelet Volume 9.8 fL (9.4-12.4); Monocytes Absolute Auto 0.5 X10*3/uL (0.1-1.2); Monocytes Percent Auto 13.3 % (2-11); Neutrophils Absolute Auto 1.5 x10*3/uL (2.0-8.3); Neutrophils Percent Auto 37.8 % (45-73); Platelet Count 192 X10*3/uL (160-400); Red Blood Count 4.32 X10*6/uL (4.60-5.80); Red Cell Distribution Width 12.7 % (11.0-16.0); White Blood Count 3.8 X10*3/uL (4.8-10.8)
[2023-09-17 11:32] LABS: Alanine Aminotransferase 21 U/L (0-40); Albumin Level 4.1 g/dL (3.5-5.0); Alkaline Phosphatase 67 U/L (39-117); Anion Gap 10 (12-20); Aspartate Amino Transferase 22 U/L (5-37); Bilirubin Total 0.5 mg/dL (0.0-1.0); Blood Urea Nitrogen 14 mg/dL (9-16); Carbon Dioxide 27 mmol/L (22-29); Chloride 109 mmol/L (96-108); Cholesterol 172 mg/dL (<200); Estimated Glomerular Filt Rate > 60; Glucose Fasting 110 mg/dL (60-99); HDL Cholesterol 35 mg/dL (>40); LDL Cholesterol Calculated 104 mg/dL (<100); Potassium 3.9 mmol/L (3.3-5.1); Sodium 142 mmol/L (135-145); Total Protein 6.7 g/dL (6.5-8.0); Triglycerides 168 mg/dL (<150)
[2023-09-17 11:42] LABS: Appearance Urine Turbid; Color Urine Dark Yellow; Glucose Urine UA Negative (Negative); Leukocyte Esterase Urine Trace (Negative); Nitrite Urine Negative (Negative); Specific Gravity - Urine 1.025 (1.005-1.025); UMIC TRIGGER UA YES; Urine Blood Negative (Negative); Urine Ketones Trace mg/dL (Negative); Urine Protein Trace mg/dL (Neg-Trace)
[2023-09-17 11:48] LABS: Prostate Specific Antigen Scr 1.18 ng/mL (<0.05-4.0); TSH reflex Free T4 4.71 uIU/mL (0.32-4.0)
[2023-09-17 12:00] LABS: Microalbum/Creatinine Ratio Ur 5.8 ug/mg cr (<30)
[2023-09-17 12:03] LABS: Bacteria Urine None Seen (None Seen); Calcium Oxalate Crystals Urine Present; RBC Urine 0-2 /HPF (0-2); Squamous Epithelial Cell Urine 0-2 /HPF (0-2); WBC Urine 0-5 /HPF (0-5)
[2023-09-17 12:40] LABS: Free T4 (Free Thyroxine) 1.08 ng/dL (0.71-1.85)
== END 2023-09-17 07:39 | disposition home or self-care (01) ==
LOC: HO.WFDLDS 07:38
PROVIDERS: Visit Provider Family Medicine
DX: Z00.00 Encounter for general adult medical examination without abnormal findings (principal); Z12.5 Encounter for screening for malignant neoplasm of prostate; I10 Essential (primary) hypertension
CPT/HCPCS: 36415; 80053; 80061; 81001; 82043; 82570; 84153; 84439; 84443; 85025

== ENCOUNTER 2023-09-28 06:29 | Day surgery (SDC) | payer MEDICARE, SELFPAY ==
[2023-09-24 13:10] VITALS: BMI 28.6
--- NOTE | 2023-09-25 09:00 | HO.ANESPROP2 ---
Documented by User: Gabriela Mejia NP 09/25/23 09:01 HPI - Anesthesia Eval Consult details Narrative: 68yo M for Colonoscopy PMFSH Active Problems Active Problems: All Active Problems Achilles tendon pain (Acute) Fatigue (Acute) Left foot pain (Acute) Viral illness (Acute) Dizziness (Acute) Syncope (Acute) Generalized anxiety disorder (Acute) Hospital discharge follow-up (Acute) Syncope and collapse (Acute) Mild anemia (Acute) Urticaria (Acute) Elevated transaminase level (Acute) Elevated fasting blood sugar (Acute) Borderline anemia (Acute) Memory changes (Acute) GERD (gastroesophageal reflux disease) (Acute) Difficulty sleeping (Acute) Jaw pain (Acute) Otalgia (Acute) Screening for prostate cancer (Acute) Hyperlipidemia (Acute) Urticaria (Acute) Adult general medical exam (Acute) Overweight (Acute) Low HDL (under 40) (Acute) Encounter for initial annual wellness visit (AWV) in Medicare patient (Acute) Screening for colon cancer (Acute) Laboratory examination ordered as part of a routine general medical examination (Acute) BPH (benign prostatic hyperplasia) (Acute) Obstructive sleep apnea (Acute) Erectile dysfunction (Acute) Bilateral hand pain (Acute) Encounter for subsequent annual wellness visit (AWV) in Medicare patient (Acute) Obstructive sleep apnea (Acute) Past Medical History Medical History (Updated 09/24/23 @ 13:14 by Zandra Olvera RN) Hives of unknown origin Sleep apnea Anemia GERD (gastroesophageal reflux disease) Family History Family History Father Renal failure Mother Cancer of pancreas Surgical History Surgical History (Updated 09/24/23 @ 13:12 by Zandra Olvera RN) Hx of excision of mass H/O colonoscopy History of back surgery Hx of cholecystectomy Hx of hernia repair Social History Social History (Updated 09/24/23 @ 13:12 by Zandra Olvera RN) Household Members: Spouse Housing: House Are you a primary career services assistant to a significant other at home: No Do you presently have visiting nurse or other home services: No Alcohol intake: current Alcohol intake frequency: does not drink Patient Tobacco Use Status: Never used Tobacco e-Cigarette/Vaping Use: Never Used Second Hand Smoke Exposure: No Use of substances other than those prescribed or required for medical reasons: Yes Substance Use Frequency: Occasionally Are you DNR?: No Advance Directives: No Advance Directives Information Provided: Yes Advance Directives on File: No service: No Current occupational exposures/hazards: No Cognitive needs: No Hearing needs: No Vision needs: No Meds Allergies Allergy/AdvReac Type Severity Reaction Status Date / Time aspirin [ASPIRIN] Allergy Severe RASH Verified 09/15/23 09:37 SWELLING, hives, swelling Home Medications ?Medication ?Instructions ?Recorded ?Confirmed ?Last Taken ?Type multivitamin 1 tab PO DAILY 09/24/23 09/24/23 Unknown History Exam Height,Weight and Vital Signs: Height 5 ft 10 in Weight 90.265 kg Pertinent Lab Results Pertinent Lab Results: Laboratory Tests 09/17/23 07:42 WBC 3.8 L Hgb 13.6 L Hct 39.9 L Plt Count 192 Sodium 142 Potassium 3.9 Chloride 109 H Carbon Dioxide 27 BUN 14 Creatinine 0.89 Assessment and Plan Assessment Anesthesia Assessment: Chart Reviewed Documented by User: Sagrario Fischer MD 09/28/23 07:22 PMFSH Past Medical History Medical History (Updated 09/24/23 @ 13:14 by Zandra Olvera RN) Hives of unknown origin Sleep apnea Anemia GERD (gastroesophageal reflux disease) Family History Family History Father Renal failure Mother Cancer of pancreas Family history of problems with anesthesia: No Surgical History Surgical History (Updated 09/24/23 @ 13:12 by Zandra Olvera RN) Hx of excision of mass H/O colonoscopy History of back surgery Hx of cholecystectomy Hx of hernia repair History of Problems with Anesthesia: No Social History Social History (Updated 09/24/23 @ 13:12 by Zandra Olvera RN) Household Members: Spouse Housing: House Are you a primary career services assistant to a significant other at home: No Do you presently have visiting nurse or other home services: No Alcohol intake: current Alcohol intake frequency: does not drink Patient Tobacco Use Status: Never used Tobacco e-Cigarette/Vaping Use: Never Used Second Hand Smoke Exposure: No Use of substances other than those prescribed or required for medical reasons: Yes Substance Use Frequency: Occasionally Are you DNR?: No Advance Directives: No Advance Directives Information Provided: Yes Advance Directives on File: No service: No Current occupational exposures/hazards: No Cognitive needs: No Hearing needs: No Vision needs: No Meds Allergies Allergy/AdvReac Type Severity Reaction Status Date / Time aspirin [ASPIRIN] Allergy Severe RASH Verified 09/15/23 09:37 SWELLING, hives, swelling Home Medications ?Medication ?Instructions ?Recorded ?Confirmed ?Last Taken ?Type multivitamin 1 tab PO DAILY 09/24/23 09/24/23 Unknown History Exam Airway Mallampati Class: II TM Dist: >3cm Neck ROM: Full Assessment and Plan Assessment Anesthesia Assessment: Anesthesia Plan Discussed Final Anesthetic Review Family History of Problems with Anesthesia: No History of Problems with Anesthesia: No NPO: Yes ASA Class: III Final Preanesthetic Review: No Changes in Pt Med Stat, Meds/Allgs Chart Reviewed, Consent Obtained/Reviewed and Anes Risks/Benef Reviewed Patient Risk: Intermediate Procedure Risk: Low Anesthetic Plan Anesthetic Plan: TIVA Disposition: Standard PACU
[2023-09-28 07:02] VITALS: BP 136/76; PULSE 61; RESP 16; TEMP 36.2; O2SAT 98
[2023-09-28] MEDS: Lactated Ringers 1,000 ML 100 ML IVCONT (07:03)
[2023-09-28 08:35] VITALS: BP 94/50; PULSE 66; RESP 16; TEMP 36.6; O2SAT 98
--- NOTE | 2023-09-28 08:39 | P.BOP_ITS ---
Brief Operative Note Date of Service: 09/28/23 Pre-op diagnosis: Screening Post-op diagnosis: other (Colon polyps) Procedure: Colonoscopy to the cecum and TI with bx/removal of polyps Surgeon: Franki oMntes MD Anesthesia: MAC Was an Remote Encoding Operations Supervisor used for this Procedure?: No Estimated blood loss (mL): 2.0 Pathology: other (A. Ascending colon polyps) Condition: stable Disposition: PACU
[2023-09-28 08:50] VITALS: BP 108/60; PULSE 57; RESP 16; TEMP 36.6; O2SAT 98
[2023-09-28 09:05] VITALS: BP 113/67; PULSE 58; RESP 16; TEMP 36.6; O2SAT 96
--- NOTE | 2023-09-28 09:14 | OP_ITS ---
DATE OF SERVICE: 09/28/2023 SURGEON: Franki Montes MD INDICATIONS: The patient presents for evaluation of colorectal cancer screening. Full consent has been obtained from him for this, including risks of bleeding and perforation. PREOPERATIVE DIAGNOSIS: Colorectal cancer screening. POSTOPERATIVE DIAGNOSIS: PROCEDURE PERFORMED: Colonoscopy to cecum and terminal ileum with biopsy and removal of polyps. ESTIMATED BLOOD LOSS: COMPLICATIONS: ANESTHESIA: Monitored anesthesia care. ASSISTANTS: SPECIMENS: POSTOPERATIVE DIAGNOSES: Colorectal cancer screening, small colon polyps, diverticulosis, and internal hemorrhoids. DESCRIPTION OF PROCEDURE: The patient was placed in the left lateral decubitus position. The digital rectal exam revealed no abnormalities. The Olympus video pediatric colonoscope was then entered into the rectum and advanced easily to the cecum. Once in the cecum, I did identify normal-appearing cecal pouch with appendiceal orifice and a normal-appearing ileocecal valve. The terminal ileum was cannulated and appeared normal. Scope was withdrawn back in the colon. The entire cecum and ileocecal valve appeared normal. The scope was slowly withdrawn assessing all mucosal surfaces carefully. Preparation was excellent. In the ascending colon, were 2 flat, less than 5 mm polyps, which were both biopsied and completely removed with the cold biopsy forceps. I did not visualize any other polyps, colitis, nor angiodysplasias. There was a moderate amount of sigmoid diverticulosis. In the rectum, scope was retroflexed, visualizing internal hemorrhoids, but no other pathology. The rectal mucosa appeared normal. The scope was straightened and withdrawn from the patient. He tolerated the procedure well and was returned to the recovery area in stable condition. IMPRESSION: 1. Small colon polyps. 2. Diverticulosis. 3. Internal hemorrhoids. PLAN: The results of the pathology will be checked. If these are both hyperplastic polyps, then I do not think we would need any further screening colonoscopies going forward given his age and no family history of colon cancer. If they are tubular adenomas, then recommend another colonoscopy in 5 years for further screening. He will, otherwise, see me on a p.r.n. basis. This has been discussed with his . MD SHARATH Arizmendi/MODL / [id number]
== END 2023-09-28 09:23 | disposition home or self-care (01) ==
PROVIDERS: PCP Family Medicine; Visit Provider Internal Medicine
PROC: 0DJD8ZZ Inspection of Lower Intestinal Tract, Via Natural or Artificial Opening Endoscopic (ICD-10-PCS; CPT 45378; principal; 2023-09-28 07:30)
DX: Z12.11 Encounter for screening for malignant neoplasm of colon (principal); D12.2 Benign neoplasm of ascending colon; K57.30 Diverticulosis of large intestine without perforation or abscess without bleeding; K64.8 Other hemorrhoids
CPT/HCPCS: 45380; 88305; J2704

== ENCOUNTER 2023-11-17 08:02 | Outpatient (AMB) | payer MEDICARE, SELFPAY ==
--- NOTE | 2023-11-17 08:05 | A.OFFVIS_ITS ---
Intake Vital Signs 11/17/23 08:12 Height 5 ft 11 in Weight 207 lb BMI 28.9 BP 132/70 Blood Pressure Location Rt brachial Position Sitting Respiration 14 Pulse 68 Pulse Source Pulse Oximeter Pulse Oximetry (%) 99 Oxygen Delivery Method Room Air Intake Visit Reasons: cpe Intake Note: physical Allergies aspirin [ASPIRIN] Allergy (Severe, Verified 11/17/23 08:49) RASH SWELLING, hives, swelling Medication List - Last Reconciled 11/17/23 by [facility] No Known Home Meds Do you need a note to return to daycare/school/sports/work: No HPI HPI Comments History of Present Illness Details Here today for AWV. The Medicare Annual Wellness Visit (AWV) is a yearly appointment with a health professional to identify health risks and help reduce them and to create or update a personalized prevention plan. During a Medicare AWV, health profession als should also review any current opioid prescriptions, detect any cognitive impairment, and establish or update medical and family history. SurgHx: Yes FHx: Yes SocHx: Yes Health Maintenance: See scanned preventative medicine assessment with personalized health plan and screening schedule. Colon 09/2023, 5-10 year recall Tdap 2014; Declined Flu, Shingles, PCV d/t recurrent hives situation. Labs 09/17/23 [facility] Neuro PT Visual Acuity: Done Hearing Screening: Whisper test, WNL. Declined AAA screening Cognitive: Had workup w/ Dr Muse and reports WNL. HCP: Has at one; Does not have a ACP or MOLST. Provided today During the course of the visit the patient was educated and counseled about appropriate screening and preventative services. Patient instructions were provided to the patient in written or electronic format. I have reviewed and verified the above information. Other issues today: Chronic urticaria responded greatly to hydroxyzine. Does not need to take this anymore. Left middle finger, shear of skin, while wood working 1 week ago, has been applying Neosporin and keeping covered. The skin is red and swollen. Painful when the area is touched. Insomnia: Trazodone did not help for insomnia. Tried this for 10 days. Wakes at 0200, lays there til [id number] and can fall back asleep. Practices sleep hygiene. Uses a CPAP daily. Does not want to depend on meds. Does not like meds overall. >> Recommend trying Melatonin ER along w/ sleep hygiene Works in [employer] 6 days/week for 4 hours - 6 hours per day, he has filtering system, does not wear a mask; has been doing this for 8 years, concerns for his lungs. Wakes gasping for air; feels something going on inside his lungs. Wonders if dust is causing a problem. Becomes lightheaded w/ deep breathing. Wants some type of work up for his lungs. [facility] Medical History (Updated 11/17/23 @ 12:03 by Mary Aguilera, [facility]) Elevated transaminase level Left foot pain Hives of unknown origin Sleep apnea Anemia GERD (gastroesophageal reflux disease) Surgical History (Updated 09/24/23 @ 13:12 by Zandra Olvera RN) Hx of excision of mass H/O colonoscopy History of back surgery Hx of cholecystectomy Hx of hernia repair Family History Father Renal failure Mother Cancer of pancreas Social History (Updated 09/24/23 @ 13:12 by Zandra Olvera RN) Household Members: Spouse Housing: House Are you a primary group care worker to a significant other at home: No Do you presently have visiting nurse or other home services: No Alcohol intake: current Alcohol intake frequency: does not drink Patient Tobacco Use Status: Never used Tobacco e-Cigarette/Vaping Use: Never Used Second Hand Smoke Exposure: No service: No Current occupational exposures/hazards: No Cognitive needs: No Hearing needs: No Vision needs: No Questionnaire Medicare Wellness Checkup What [age] What gender do you identify with?: male During the past 4 weeks, how much have you been bothered by emotional problems such as feeling anxious, depressed, irritable, sad or downhearted, and blue?: not at all During the past 4 weeks, has your physical & emotional health limited your social activities with family, friends, neighbors, or groups?: not at all During the past 4 weeks, how much bodily pain have you generally had?: no pain During the past 4 weeks, was someone available to help you if you needed & wanted help?: yes, as much as I wanted During the past 4 weeks, what was the hardest physical activity you could do for at least 2 minutes?: heavy Can you get to places out of walking distance without help? (For eg., can you travel alone on buses, taxis or drive your car?): Yes Can you go shopping for groceries or clothes without someone's help?: Yes Can you prepare your own meals?: Yes Can you do your housework without help?: Yes Because of any health problems, do you need the help of another person with your personal care needs such as eating, bathing, dressing or getting around the house?: No Can you handle your own money without help?: Yes During the past 4 weeks how have things been going for you?: pretty well Are you having difficulties driving your car?: no Do you always fasten your seat belt when you are in a car?: yes, usually During past 4 weeks, have you been bothered by the following: never: Falling or dizzy when standing up, Sexual problems?, Trouble eating well?, Teeth or denture problems?, Problems using the telephone? and Tiredness or fatigue? Have you fallen 2 or more times in the past year?: No Are you afraid of falling?: No Are you a smoker?: no During the past 4 weeks, how many drinks of wine, beer, or other alcoholic beverages did you have?: 2-5 drinks per week Do you exercise for about 20 minutes 3 or more times a week?: yes, most of the time Have you been given information to help with the following?: no: Hazards in your house that might hurt you? and no: Keeping track of your medications? How often do you have trouble taking medicines the way you have been told to take them?: I do not have to take medicine How confident are you that you can control & manage most of your health problems?: very confident What is your race?: White Activity of Daily Living Bathing - sponge bath, tub bath or shower: receives no assistance (gets in/out by self, if usual bathing means Dressing - getting clothes from closets & drawers, including inner/outer garments & fasteners.: gets clothes & gets completely dressed without help Toileting - going to the 'toilet room' for urine/bowel elimination & cleaning self/arranging clothes: goes to toilet room, cleans self, arranges clothes without help Transfer: moves in & out of bed and chair without help (may use support object) Continence: controls urination/bowel movements completely by self Feeding: feeds self without help Total Score: 0 Information obtained from: patient Using telephone: independent Traveling: independent Shopping: independent Preparing meals: independent Housework: independent Taking medicine: independent Managing money: independent PHQ-9 Over the last 2 weeks, how often have you been bothered by any of the following problems? 1. Little interest or pleasure in doing things: not at all 2. Feeling down, depressed, or hopeless: not at all 3. Trouble falling or staying asleep, or sleeping too much: nearly every day 4. Feeling tired or having little energy: not at all 5. Poor appetite or overeating: not at all 6. Feeling bad about yourself - or that you are a failure or have let yourself or your family down: not at all 7. Trouble concentrating on things, such as reading the newspaper or watching television: not at all 8. Moving or speaking so slowly that other people could have noticed. Or the opposite - being so fidgety or restless that you have been moving around a lot more than usual: not at all 9. Thoughts that you would be better off or of hurting yourself in some way: not at all Total score: 3 Depression Screening Interpretation: Negative Depression Screening Done: Yes 84176 - PHQ-9 Billing: Yes Source: Developed by Drs. Franki Galvez, Juliann Hoover, Jadon Mathis and colleagues, with an educational christy from [employer]. Physical Exam Vital Signs: Last Vital Signs Pulse 68 11/17/23 08:12 Resp 14 11/17/23 08:12 BP 132/70 11/17/23 08:12 Pulse Ox 99 11/17/23 08:12 Oxygen Delivery Method Room Air 11/17/23 08:12 BMI result Body Mass Index 28.9 Const Other: Awake alert NAD RRR LS CTAB, felt lightheaded w/ deep breathing. Recovering within seconds w/o intervention Left middle finger: nail intact, cuticle with skin shear exposing what looks like tendon, the skin is edematous, erythematous, tender to touch w/ drainage serosang expressed. Office Procedures Vision Screening Right Eye: 20/20 Left Eye: 20/25 Bilateral: 20/15 Color: Pass 37318 - Vision Screening Assessment & Plan Assessment & Plan (1) Encounter for subsequent annual wellness visit (AWV) in Medicare patient: Code(s): Z00.00 - Encounter for general adult medical examination without abnormal findings (2) Dizziness: Code(s): R42 - Dizziness and giddiness Plan: . (3) SOB (shortness of breath): Code(s): R06.02 - Shortness of breath Plan: . (4) Dust exposure: Code(s): Z77.29 - Contact with and (suspected) exposure to other hazardous substances Plan: Check PFT. FU with PCP for results Consider imaging PRN if PFT wnl and non-revealing. Limit environmental exposures (5) Paronychia of left middle finger: Code(s): L03.012 - Cellulitis of left finger Plan: Treat w cephalexin; he is UTD on Tdap. Urgent referral to Hand surgeon for eval and tx. Call placed and pending action. An additional 30 was spent addressing the problem(s) noted at todays visit. This includes time spent before the visit reviewing the chart, time spent during the visit, and time spent after the visit on documentation (6) GENOVEVA on CPAP: Code(s): G47.33 - Obstructive sleep apnea (adult) (pediatric) Plan: . (7) ACP (advance care planning): Code(s): Z71.89 - Other specified counseling (8) BMI 28.0-28.9,adult: Code(s): Z68.28 - Body mass index [BMI] 28.0-28.9, adult Plan . Orders: Orders PFT pulmonary function test Today R06.02 - Shortness of breath, R42 - Dizziness and giddiness, Z77.29 - Contact with and (suspected) exposure to other hazardous substances Referrals Hand Surgery Referral L03.012 - Cellulitis of left finger Medications: New cephalexin 500 mg PO Q12H 14 caps 0RF 7 days Patient Instructions: Try Melatonin ER at night to help you sleep Quality Reporting (2019) Adult ([facility] 138//) Smoking risk assessment performed?: Yes Patient Tobacco Use Status: Never used Tobacco Depression screening performed: Yes Screen Results: Yes Negative screen Recommended changes: alcohol moderation Systolic BP not done?: Yes Diastolic BP not done?: Yes BMI screening not done: No BMI High - Follow Up: Yes High-plan (lifestyle ) Sexual Activity Screening ([facility] 153) Sexually active?: Yes Immunizations (CMS 147, 117) Annual Influenza Vaccine: No Flu Vaccine not done: patient reason Measles Antibody Test: No Mumps Antibody Test: No Rubella Antibody Test: No Varicella Antibody Test: No Anti Hepatitis A IgG Antigen test: No Anti Hepatitis B Virus Surface Ab test: No Fall Risk Screening ([facility] 139) Last assessed Fall Risk: 11/17/23 Fall risk assessment: No Falls in past year Dementia Assessment ([facility] 149) Cognitive assessment recorded: Yes Assessment of cognition with standardized tool: Yes (6 CIT WNL ) Depression/Bipolar (159/160/161/177) PHQ-9: Total score: 3 Suicide risk assessment performed: Yes Psychotherapy: No Ophthalmol:Cataracts Visual Acuity (133) Visual acuity exam performed: Yes Best corrected visual acuity: distance vision 20/15 Coding Level of Care Code Medicare Subsequent (G0439) Est Pt Level 3 (80336) Diagnoses Encounter for subsequent annual wellness visit (AWV) in Medicare patient Z00.00 Dizziness R42 SOB (shortness of breath) R06.02 Dust exposure Z77.29 Paronychia of left middle finger L03.012 GENOVEVA on CPAP G47.33 ACP (advance care planning) Z71.89 BMI 28.0-28.9,adult Z68.28 CPT Codes Advance Care Planning - Time spent: 1-15 minutes, not on file ([id number]) Vision Screening - Vision Screenin - Vision Screening ([id number]) Advance Care Planning Advance Care Planning discussion: Exists, not on file Date of discussion: 11/17/23 Who was present: SELF Forms completed: Health Care Proxy and MOLST Time spent: 1-15 minutes, not on file Actual minutes spent: 5 Did not discuss due to Cultural/Spiritual beliefs: Yes
[2023-11-17 08:12] VITALS: BP 132/70; PULSE 68; RESP 14; O2SAT 99; BMI 28.9
== END 2023-11-17 08:57 | disposition home or self-care (01) ==
PROVIDERS: PCP Family Medicine; Visit Provider Nurse Practitioner Family
DX: Z00.00 Encounter for general adult medical examination without abnormal findings (principal); R42 Dizziness and giddiness; R06.02 Shortness of breath; L03.012 Cellulitis of left finger; Z77.29 Contact with and (suspected) exposure to other hazardous substances; G47.33 Obstructive sleep apnea (adult) (pediatric); Z71.89 Other specified counseling; Z68.28 Body mass index [BMI] 28.0-28.9, adult; Z01.00 Encounter for examination of eyes and vision without abnormal findings

== ENCOUNTER → 2023-11-17 08:02 | Outpatient (BNVA) | payer MEDICARE, SELFPAY | PROVIDERS: PCP Family Medicine; Visit Provider Nurse Practitioner Family | DX: Z00.01 Encounter for general adult medical examination with abnormal findings (principal); R42 Dizziness and giddiness; R06.02 Shortness of breath; L03.012 Cellulitis of left finger; G47.33 Obstructive sleep apnea (adult) (pediatric); Z71.89 Other specified counseling; Z77.29 Contact with and (suspected) exposure to other hazardous substances | CPT/HCPCS: 96127; 99212 ==

== ENCOUNTER 2023-11-18 08:06 | Outpatient (AMB) | payer MEDICARE, SELFPAY ==
--- NOTE | 2023-11-18 08:16 | MHC.OFFVIS ---
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 Patient denies numbness or tingling. Patient is sensitive to touch, otherwise, denies any pain. Patient states his PCP squeezed it out yesterday. He has also noticed some pus on the bandages when he changes the dressing. Denies prior injuries or surgeries to the left hand. 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 He was wood working when he cut his finger. 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 He was seen by his PCP on 11/17/23 and placed on a 7-day course of Keflex. He says he is doing well. he denies any pain, numbness, or tingling. He reports some pus drainage on his dressings, and says his PCP managed to express some pus in office yesterday. He has been taking his Abx as instructed. [facility] Medical History (Updated 11/18/23 @ 09:07 by Elkin Zaidi) Elevated transaminase level Left foot pain Hives of unknown origin Sleep apnea Anemia GERD (gastroesophageal reflux disease) Surgical History (Updated 09/24/23 @ 13:12 by Zandra Olvera RN) Hx of excision of mass H/O colonoscopy History of back surgery Hx of cholecystectomy Hx of hernia repair Family History Father Renal failure Mother Cancer of pancreas Social History (Updated 09/24/23 @ 13:12 by Zandra Olvera RN) Household Members: Spouse Housing: House Are you a primary customer care assistant to a significant other at home: No Do you presently have visiting nurse or other home services: No Alcohol intake: current Alcohol intake frequency: does not drink Patient Tobacco Use Status: Never used Tobacco e-Cigarette/Vaping Use: Never Used Second Hand Smoke Exposure: No service: No Current occupational exposures/hazards: No Cognitive needs: No Hearing needs: No Vision needs: No Review of Systems Const All systems reviewed & are unremarkable except as noted in HPI and below Physical Exam Vital Signs: BMI result Body Mass Index 28.9 Const General: cooperative, healthy appearing and no acute distress Orientation/consciousness: patient oriented x3 HEENT Head: Yes normocephalic and Yes atraumatic Eyes EOM: EOMs intact bilaterally Resp Effort & Inspection: normal respiratory effort and able to speak in complete sentences Cardio Jugular venous distension: no JVD Skin General skin exam: turgor normal Rashes: no rashes Neuro General: patient oriented x3 Extrem Other: Evaluation of Left Upper Extremity: The patient is alert, oriented, and in no acute distress Neuro: Median, Ulnar, Radial nerves motor and sensory intact and sensation is normal to the tips of all digits Vascular: Cap refill brisk ROM: He can make a fist and extend all his digits Skin: Laceration to the dorsal middle finger eponycheal fold with displacement Surrounding erythema There is a thin white flat object present in the wound,m measuring ~1.5cm*0.8cm in size. This is likely a fractured piece of fingernail from underneath the eponycheal fold. He has a partially displaced nail over the sterile nail matrix, which appears intact Psych Appearance: grossly normal Affect: normal affect Attitude: cooperative Office Procedures AMB Fracture Care Details: No fracture, [address], [address], Fracture Billing Code: Fracture Billing Code Quality Reporting (2019) Adult ([facility] 138/[birth year]/02/68) Smoking risk assessment performed?: Yes Patient Tobacco Use Status: Never used Tobacco Assessment & Plan Assessment & Plan (1) Laceration of left middle finger: Code(s): S61.213A - Laceration without foreign body of left middle finger without damage to nail, initial encounter Category: Medical (2) Infected finger laceration: Code(s): S61.219A - Laceration without foreign body of unspecified finger without damage to nail, initial encounter; L08.9 - Local infection of the skin and subcutaneous tissue, unspecified Category: Medical (3) Foreign body (FB) in soft tissue: Code(s): M79.5 - Residual foreign body in soft tissue Category: Medical Plan Assessment & Plan: 1. Left middle finger laceration of the eponychial fold With displacement of a proximal portion of the nail plate from the germinal matrix DOI: ~11/10/23 2. Left middle finger retained foreign body Likely a fractures piece of fingernail DOI: ~11/10/23 I educated him about this condition I discussed operative and non-operative treatment options I recommend an in-office procedure to remove this foreign body, and the patient is in agreement. He may need a further operative procedure in the OR depending on the results of this in-office procedure Procedure: Procedure #1: Removal of displaced proximal portion of the nail plate Procedure #2: I&D of middle finger wound Procedure #3: Re-approximate skin edges of the eponychial fold The risks and benefits of operative treatment were discussed with the patient and the patient wishes to proceed with the procedure. Consent was obtained. A digital block was administered consisting of 1% Lidocaine and 0.5% Marcaine. Once we had a good block, I used pickups & small scissors to free the proximal edge of the fingernail that normally is tucked underneath the eponychial fold. It was fractured at the eponychial fold transversely and the proximal portion was flipped up into the wound. The scissors were used to cut the attachment at the ulnar edge and remove from patient. There was also a flap of skin tucked into the wound that was removed from the wound. The wound was irrigated and closed with a single well-placed suture, both to re-approximate the eponychial fold, and to allow for drainage. A dressing was applied. Patient appears to have tolerated the procedure well and with no complications. I explained the signs and symptoms of infection, if the patient develops any new or worsening erythema, drainage, pain, or warmth they should contact the clinic or attend the ED. I discussed activity modifications, he is to lift nothing heavier than a cellphone for the next two weeks He was given a 10-day course of PO Augmentin, and he will discontinue his Keflex at this time. I educated him on proper wound care. he will perform a dressing change on Thursday, followed by daily dressing changes until his next appointment He should avoid any underwater activities at this time He will follow up next week with me for a wound check. Anticipate suture removal at 10-14 days. Please note that greater than 45 minutes was spent with this patient going over the history, evaluating the patient and radiographs, formulating possible treatment options, discussing them with the patient, and documenting the visit. Scribed for Zahira Miller MD by Elkin Zaidi, medical officer, on 11/18/23 at 8:45 AM, EST. Medications: New amoxicillin-pot clavulanate 875-125 mg 1 tab PO Q12H 20 tabs 0RF Coding Level of Care Code New Pt Level 4 (92425) Diagnoses Laceration of left middle finger S61.213A Infected finger laceration S61.219A; L08.9 Foreign body (FB) in soft tissue M79.5 CPT Codes Fracture Care - Fracture Billing Code: Fracture Billing Code ([id number])
[2023-11-18 08:25] VITALS: BMI 28.9
== END 2023-11-18 09:15 | disposition home or self-care (01) ==
PROVIDERS: PCP Family Medicine; Visit Provider Orthopaedic Surgery
DX: S61.213A Laceration without foreign body of left middle finger without damage to nail, initial encounter (principal); L08.9 Local infection of the skin and subcutaneous tissue, unspecified; L03.012 Cellulitis of left finger; M79.5 Residual foreign body in soft tissue; Z04.2 Encounter for examination and observation following work accident
CPT/HCPCS: 11730; 99204

== ENCOUNTER → 2023-11-18 08:06 | Outpatient (BNVA) | payer MEDICARE, SELFPAY | PROVIDERS: PCP Family Medicine; Visit Provider Orthopaedic Surgery | DX: S61.213A Laceration without foreign body of left middle finger without damage to nail, initial encounter (principal); L03.012 Cellulitis of left finger; X58.XXXA Exposure to other specified factors, initial encounter; Y93.9 Activity, unspecified; Y92.9 Unspecified place or not applicable; Y99.9 Unspecified external cause status; M79.5 Residual foreign body in soft tissue | CPT/HCPCS: 11730; 99202; J0665; J2003 ==

== ENCOUNTER 2023-11-24 10:34 | Outpatient (AMB) | payer MEDICARE, SELFPAY ==
--- NOTE | 2023-11-24 11:07 | A.OFFVIS_ITS ---
Vital Signs 11/24/23 11:09 Height 5 ft 11 in Weight 207 lb BMI 28.9 Handedness Right Intake Visit Reasons: OV- 1wk f/u Left Middle Finger Wound Check Intake Note: Roberto is a 68 year old right hand dominant male who presents today for a follow up visit of cellulitis on the left middle finger s/p cut with a piece of wood. Patient reports if he accidentally bangs his finger he feels pain but is otherwise cautious with it. He says he still has some amoxicillin left over from his prescription. Denies numbness and tingling. Allergies aspirin [ASPIRIN] Allergy (Severe, Verified 11/24/23 11:09) RASH SWELLING, hives, swelling HPI HPI OV- 1wk f/u Left Middle Finger Wound Check: Details: Roberto is a 68 year old right hand dominant man who returns for a wound check of his left middle finger laceration, DOI: ~11/10/23. S/P I&D, removal of nail plate, and re-approximation of eponychial fold.This is a work-related injury, done with a gravity flow irrigator when a piece of wood kicked back. He says he is doing well. he denies any pain, numbness, or tingling. He has been taking his Abx as instructed, and doin daily dressing changes. He says he has some pain if he hits his finger against a surface [facility] Medical History Elevated transaminase level Left foot pain Hives of unknown origin Sleep apnea Anemia GERD (gastroesophageal reflux disease) Surgical History Hx of excision of mass H/O colonoscopy History of back surgery Hx of cholecystectomy Hx of hernia repair Family History Father Renal failure Mother Cancer of pancreas Social History Household Members: Spouse Housing: House Are you a primary career counselor to a significant other at home: No Do you presently have visiting nurse or other home services: No Alcohol intake: current Alcohol intake frequency: does not drink Patient Tobacco Use Status: Never used Tobacco e-Cigarette/Vaping Use: Never Used Second Hand Smoke Exposure: No service: No Current occupational exposures/hazards: No Cognitive needs: No Hearing needs: No Vision needs: No Review of Systems Const All systems reviewed & are unremarkable except as noted in HPI and below Physical Exam Vital Signs: BMI result Body Mass Index 28.9 Const General: no acute distress and alert Orientation/consciousness: patient oriented x3 Neuro General: patient oriented x3 Extrem Other: Evaluation of Left Upper Extremity: The patient is alert, oriented, and in no acute distress. Suture removed today in clinic Neuro: Median, Ulnar, Radial nerves motor and sensory intact and sensation is normal to the tips of all digits Vascular: Cap refill brisk ROM: He can make a fist and extend all his digits Skin: Sutured laceration to the dorsal middle finger eponychial fold with displacement, with some evidence of healing He has some resolving ecchymosis and hyperemia No drainage or fluctuance with palpitation He has a partially displaced nail over the sterile nail matrix, which appears intact Psych Appearance: grossly normal Affect: normal affect Attitude: cooperative Quality Reporting (2019) Adult ([facility] ) Smoking risk assessment performed?: Yes Patient Tobacco Use Status: Never used Tobacco Assessment & Plan Assessment & Plan (1) Laceration of left middle finger: Code(s): S61.213A - Laceration without foreign body of left middle finger without damage to nail, initial encounter Category: Medical (2) Infected finger laceration: Code(s): S61.219A - Laceration without foreign body of unspecified finger without damage to nail, initial encounter; L08.9 - Local infection of the skin and subcutaneous tissue, unspecified Category: Medical (3) Foreign body (FB) in soft tissue: Code(s): M79.5 - Residual foreign body in soft tissue Category: Medical Plan Assessment & Plan: 1. Left middle finger laceration of the eponychial fold, S/P re-approximation With displacement of a proximal portion of the nail plate from the germinal matrix DOI: ~11/10/23 Date of in-office Procedure: 11/18/23 2. Left middle finger retained foreign body, S/P removal Fractured piece of fingernail DOI: ~11/10/23 Date of in-office Procedure to remove it: 11/18/23 I educated him about this condition I believe he is healing well. I explained the signs and symptoms of infection, if the patient develops any new or worsening erythema, drainage, pain, or warmth they should contact the clinic or attend the ED. I also explained that it will take several months before we know how well he can grow a new fingernail. He is leaving in February to go to [facility] for several months I discussed activity modifications, he is to lift nothing heavier than a cellphone for the next week He will continue to take his PO Augmentin until finished I educated him on proper wound care, he will continue to perform daily dressing changes until his next appointment He should avoid any underwater activities at this time He will follow up in 3 weeks for a wound check & to see how he is doing. This can be done with [facility] Scrleanna for Zahira Miller MD by Elkin Zaidi medical assembler, on 11/24/23 at 11:30 AM, EST. Coding Level of Care Code Global (28420) Diagnoses Laceration of left middle finger S61.213A Infected finger laceration S61.219A; L08.9 Foreign body (FB) in soft tissue M79.5
[2023-11-24 11:09] VITALS: BMI 28.9
== END 2023-11-24 11:51 | disposition home or self-care (01) ==
PROVIDERS: PCP Family Medicine; Visit Provider Orthopaedic Surgery
DX: S61.213A Laceration without foreign body of left middle finger without damage to nail, initial encounter (principal); S61.219A Laceration without foreign body of unspecified finger without damage to nail, initial encounter; L08.9 Local infection of the skin and subcutaneous tissue, unspecified; M79.5 Residual foreign body in soft tissue
CPT/HCPCS: 99213

== ENCOUNTER → 2023-11-24 10:34 | Outpatient (BNVA) | payer MEDICARE, SELFPAY | PROVIDERS: PCP Family Medicine; Visit Provider Orthopaedic Surgery | DX: S61.213D Laceration without foreign body of left middle finger without damage to nail, subsequent encounter (principal); L08.9 Local infection of the skin and subcutaneous tissue, unspecified; X58.XXXD Exposure to other specified factors, subsequent encounter | CPT/HCPCS: 99212 ==

== ENCOUNTER 2023-11-26 08:00 | Outpatient (RCR) | payer MEDICARE, SELFPAY ==
--- NOTE | 2023-10-02 12:56 | MHC.PT.EP ---
[facility] [place] Office [place] [facility] [place] Office [address] Janice Yanez [address] [phone] F: [phone] F: [phone] F: [phone] F: [phone] Physical Therapy Plan of Care Date of Evaluation: 09/29/23 Date of Surgery: Diagnosis: M76.60 Achilles tendonitis, unspecfieid leg, Achilles tendon pain referred by Dr. Erik Azul Assessment: Pt is a RHD 68 y/o male with PMH significant for history of back surgery L5/S1 at age 35, reports history of L>R inguinal repair, referred to PT from PCP Dr. Azul for treatment of M76.60 Achilles tendonitis, unspecified leg, Achilles tendon pain referred by Dr. Erik Azul. Pt reports history of chronic hives on/off, with history of recent syncope/collapse> ER RAMIREZ> with history of recent follow up Holter monitoring 09/09/23 (see results). Pt expressing tolerance for ambulation, expresses pain in L>R achilles with poor tolerance for stair climbing, yard work, and walking on flat terrain. Pt would benefit from attending skilled PT services at a frequency of 2x/week x 4 weeks to address listed goals/impairments in ROM/strength/balance and mobiliity. (Pt states will be out of town for month of October). During evaluation, pt reports hx vertigo/hx dizziness; received screening for BPPV/positional vertigo and was negative in Hallpike test L>R. No nystamus or vertigo sx were noted with screening. Review of cardiac holter test was completed in patient chart. Pt was issued a written HEP for gentle AP, educated re: HEP, impact of supportive footwear and benefit in sneakers vs flip-flops. Pt educated and issued handout AAOS Achilles tendonitis handout sheets for patient education. Pt educated to refrain from exercises in back of educational packet and assess response treatment today. Pt also issued educational handout for ROCKTAPE/ CORE handout removal sheets/guide. Three I-strips placed in ankle subtalar neutral with DF stretch three strips for achilles>gastroc soleus stretch/support on each ankle. Pt verbalized positive painfree stretch post application. Frequency and Duration: The patient will be seen 2x/week x 4 weeks Short Term Goals: 1. Improve L>R AROM DF to 15 degrees. (IR: 10 with sx pain). 2. Reduce TTP medial distal achilles. 3. Initiate self care program 4. Improve hip ER flexibilty by 25%. 5. Improve HS length by 20 degrees (IR: L 145, R 150) Senior Teradata Developer Goals: 1. I HEP. 2. Self care program achilles>plantar fascia>core>hips. 3. Negotiate a flight of stairs reciprocally with good dynamic balance. (IR:step to). 4. Strength hip abd 5/5 B. 5. Strength hip ext 5/5 B. 6. Demonstrate functional squat with symmetry with good balance. Treatment Plan: Modalities to reduce pain, spasms and effusion. Manual therapy to restore motion and function. Therapeutic exercise to improve strength and flexibility. Neuromuscular re-education for posture and balance. Therapeutic activities to return to functional activities of daily living. Electronically signed by: Please sign and return to therapist. Thank you for your referral.
== END 2024-01-14 10:03 | disposition home or self-care (01) ==
LOC: HO.PTWFD 08:00
PROVIDERS: PCP Family Medicine; Visit Provider Family Medicine
DX: M76.60 Achilles tendinitis, unspecified leg (principal)
CPT/HCPCS: 97110; 97140; 97162; 97535

== ENCOUNTER 2023-12-15 08:29 | Outpatient (AMB) | payer MEDICARE, SELFPAY ==
[2023-12-15 08:32] VITALS: BMI 28.9
--- NOTE | 2023-12-15 08:32 | A.OFFVIS_ITS ---
Vital Signs 12/15/23 08:32 Height 5 ft 11 in Weight 207 lb BMI 28.9 Intake Visit Reasons: OV- 1wk f/u Left Middle Finger Wound Check Intake Note: Roberto is a 68 year old right hand dominant male who presents today for a wound check of cellulitis on the left middle finger. Patient states he finished his antibiotics a few days after his last visit here. Reports a sharp pain on the nail bed, 3 on the 0-10 pain scale. He is not taking anything for pain at this time. Denies numbness, tingling, finger locking. Allergies aspirin [ASPIRIN] Allergy (Severe, Verified 12/15/23 08:32) RASH SWELLING, hives, swelling HPI HPI OV- 1wk f/u Left Middle Finger Wound Check: Details: Roberto is a 68 year old right hand dominant man who returns for a wound check of his left middle finger laceration, DOI: ~11/10/23. S/P I&D, removal of nail plate, and re-approximation of eponychial fold.This is a work-related injury, done with a translator and interpreter when a piece of wood kicked back. Patient reports that he has removed 2 more pieces of finger nail from the wound that seemed to have push their way to the surface since his last visit. While the wound is not tender, it is painful when he hits it. He has completed his Abx as instructed 2 weeks ago but is concerned tat his fingertip still appears red, which concerns him. The area is not tender however an overall he thinks it is looking better with regards to swelling though it is still somewhat red. He is continuing with proper wound care. He is unsure if his nail is growing in correctly or not. He and his were planning on a lot of traveling over the next few months. He leaves on 01/08/2024 for an 11 day trip to the [place]. [facility] Medical History Elevated transaminase level Left foot pain Hives of unknown origin Sleep apnea Anemia GERD (gastroesophageal reflux disease) Surgical History Hx of excision of mass H/O colonoscopy History of back surgery Hx of cholecystectomy Hx of hernia repair Family History Father Renal failure Mother Cancer of pancreas Social History Household Members: Spouse Housing: House Are you a primary healthcare administrative assistant to a significant other at home: No Do you presently have visiting nurse or other home services: No Alcohol intake: current Alcohol intake frequency: does not drink Patient Tobacco Use Status: Never used Tobacco e-Cigarette/Vaping Use: Never Used Second Hand Smoke Exposure: No service: No Current occupational exposures/hazards: No Cognitive needs: No Hearing needs: No Vision needs: No Physical Exam Vital Signs: BMI result Body Mass Index 28.9 Const General: no acute distress and alert Orientation/consciousness: patient oriented x3 Neuro General: patient oriented x3 Extrem Other: Evaluation of Left Upper Extremity: The patient is alert, oriented, and in no acute distress. Sensation intact to the tip of the digit. Good cap refill. ROM: He can make a fist and extend all his digits Skin: Defect in the central aspect of the eponychial fold Surrounding tissue hyperemic, unchanged from prior Non-tender & no drainage, overall improved from prior, except that I believe the defect looks somewhat larger. This defect in the eponychial fold is leaving a fair amount of the germinal matrix uncovered. Transverse cut to the proximal aspect of the nail, where he lost the nail and had an injury to the proximal nailbed Psych Appearance: grossly normal Affect: normal affect Attitude: cooperative Quality Reporting (2019) Adult ([facility] 138/04/02/68) Smoking risk assessment performed?: Yes Patient Tobacco Use Status: Never used Tobacco Assessment & Plan Assessment & Plan (1) Laceration of left middle finger: Code(s): S61.213A - Laceration without foreign body of left middle finger without damage to nail, initial encounter Category: Medical (2) Foreign body (FB) in soft tissue: Code(s): M79.5 - Residual foreign body in soft tissue Category: Medical (3) Infected finger laceration: Code(s): S61.219A - Laceration without foreign body of unspecified finger without damage to nail, initial encounter; L08.9 - Local infection of the skin and subcutaneous tissue, unspecified Category: Medical Plan Assessment & Plan: 1. Left middle finger laceration and avulsion of the central portion of the eponychial fold, S/P removal of piece of loose nail plate and attempted re- approximation With displacement of a proximal portion of the nail plate from the germinal matrix DOI: ~11/10/23 Date of in-office Procedure: 11/18/23 2. Left middle finger defect in the Eponychial fold DOI: ~11/10/23 Date of in-office Procedure to remove it: 11/18/23 I educated him about this condition, as well as the benefits of a possible skin re-arrangement procedure to bring some skin from proximal to distal and better cover the germinal matrix, including minimizing the risks of possible recurrent infections I also explained that it will take several months before we know how well he can grow a new fingernail. He is not sure if he wants to do this if the reason is purely cosmetic. I I explained that I have some concerns at leaving it the way it is may result in a higher rate of infection around this area. He has some Hyperemia , without any drainage Out of an abundance of caution, I ordered a 10-day course of PO Augmentin He is leaving at the end of December to go to the [facility] for 2 weeks. He is leaving in February to go to [facility] for several months I discussed activity modifications, he is to use his hand for more normal activities at this time He will work on ROM exercises at home, and he should perform a warm saltwater soak daily while taking his Abx He will follow up in 2 weeks for a wound check, before he leaves for his trip. I may consider sending him with extra Abx on his trip Please note that greater than 30 minutes was spent with this patient going over the history, evaluating the patient and radiographs, formulating possible treatment options, discussing them with the patient, and documenting the visit. Scribed for Zahira Miller MD by Elkin Zaidi, dental assistant medical assistant, on 12/15/23 at 9:00 AM, EST. Medications: New amoxicillin-pot clavulanate 875-125 mg 1 tab PO Q12H 20 tabs 0RF Coding Level of Care Code Global (52082) Diagnoses Laceration of left middle finger S61.213A Foreign body (FB) in soft tissue M79.5 Infected finger laceration S61.219A; L08.9
== END 2023-12-15 09:19 | disposition home or self-care (01) ==
LOC: HO.HOS 08:29
PROVIDERS: PCP Family Medicine; Visit Provider Orthopaedic Surgery
DX: S61.213A Laceration without foreign body of left middle finger without damage to nail, initial encounter (principal); L08.9 Local infection of the skin and subcutaneous tissue, unspecified; M79.5 Residual foreign body in soft tissue
CPT/HCPCS: 99213

== ENCOUNTER → 2023-12-15 08:29 | Outpatient (BNVA) | payer MEDICARE, SELFPAY | PROVIDERS: PCP Family Medicine; Visit Provider Orthopaedic Surgery | DX: S61.313A Laceration without foreign body of left middle finger with damage to nail, initial encounter (principal); L08.9 Local infection of the skin and subcutaneous tissue, unspecified; X58.XXXA Exposure to other specified factors, initial encounter; Y93.9 Activity, unspecified; Y92.9 Unspecified place or not applicable; Y99.9 Unspecified external cause status | CPT/HCPCS: 99212 ==

== ENCOUNTER 2023-12-17 14:39 | Outpatient (REF) | payer MEDICARE, SELFPAY ==
--- NOTE | 2023-12-17 15:50 | PFT_ITS ---
Flows: FEV1: 87 % of predicted at 2.91 L FVC: 87 % of predicted at 3.86 L FEV1/FVC: 75 % Bronchodilator response: Absent Volumes: Total lung capacity: 77 % of predicted at 5.70 L Residual volume: 66 % of predicted at 1.72 L Slow vital capacity: 84 % of predicted at 3.98 L Expiratory reserve volume: 32 % of predicted at 0.42 L Diffusion capacity: Normal Impression: Mild restrictive ventilatory defect with no bronchodilator response. Decreased expiratory reserve volume suggests extrathoracic restriction likely secondary to abdominal obesity. MTDD
[2023-12-17 15:51] VITALS: PULSE 71; RESP 16; O2SAT 97
== END 2023-12-17 14:40 | disposition home or self-care (01) ==
LOC: HO.RESP 14:39
PROVIDERS: PCP Family Medicine; Visit Provider Nurse Practitioner Family
DX: R06.02 Shortness of breath (principal); R42 Dizziness and giddiness; Z77.29 Contact with and (suspected) exposure to other hazardous substances
CPT/HCPCS: 94010; 94640; 94727; 94729

== ENCOUNTER → 2023-12-17 15:50 | Outpatient (BNV) | payer MEDICARE, SELFPAY | PROVIDERS: PCP Family Medicine; Visit Provider Internal Medicine Pulmonary Disease | DX: R06.02 Shortness of breath (principal); Z77.29 Contact with and (suspected) exposure to other hazardous substances; R42 Dizziness and giddiness | CPT/HCPCS: 94060; 94727; 94729 ==

== ENCOUNTER 2023-12-29 09:37 | Outpatient (AMB) | payer MEDICARE, SELFPAY ==
[2023-12-29 10:01] VITALS: BMI 28.9
--- NOTE | 2023-12-29 10:01 | A.OFFVIS_ITS ---
Vital Signs 12/29/23 10:01 Height 5 ft 11 in Weight 207 lb BMI 28.9 Intake Visit Reasons: Left Middle Finger Wound Check-12/29/23 Intake Note: Roberto is a 68 year old right hand dominant male who presents today for a wound check of cellulitis on the left middle finger. Patient reports he completed taking his antibiotic. Allergies aspirin [ASPIRIN] Allergy (Severe, Verified 12/29/23 10:01) RASH SWELLING, hives, swelling HPI HPI Left Middle Finger Wound Check-12/29/23: Details: Roberto is a 68 year old right hand dominant man who returns for a wound check of his left middle finger laceration, DOI: ~11/10/23. S/P I&D, removal of nail pl ate, and re-approximation of eponychial fold, Date of procedure: 11/18/23 in- clinic. 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 He says he is doing well overall, and he has completed his most recent course of Abx. The area is not tender and overall he thinks it is looking better and his redness has improved. He is unsure if his nail is growing in correctly or not. He and his were planning on a lot of traveling over the next few months. He leaves on 01/08/2024 for an 11 day trip to the [facility]. February and March he will begun to [facility]. [facility] Medical History Elevated transaminase level Left foot pain Hives of unknown origin Sleep apnea Anemia GERD (gastroesophageal reflux disease) Surgical History Hx of excision of mass H/O colonoscopy History of back surgery Hx of cholecystectomy Hx of hernia repair Family History Father Renal failure Mother Cancer of pancreas Social History Household Members: Spouse Housing: House Are you a primary patient care specialist to a significant other at home: No Do you presently have visiting nurse or other home services: No Alcohol intake: current Alcohol intake frequency: does not drink Patient Tobacco Use Status: Never used Tobacco e-Cigarette/Vaping Use: Never Used Second Hand Smoke Exposure: No service: No Current occupational exposures/hazards: No Cognitive needs: No Hearing needs: No Vision needs: No Physical Exam Vital Signs: BMI result Body Mass Index 28.9 Const General: no acute distress and alert Orientation/consciousness: patient oriented x3 Neuro General: patient oriented x3 Extrem Other: Evaluation of Left Upper Extremity: The patient is alert, oriented, and in no acute distress. Sensation intact to the tip of the digit. Good cap refill. ROM: He can make a fist and extend all his digits Skin: Loss of central part of eponycheal fold, appears he is trying to grow a nail Much less Hyperemia compared to prior Non-tender & no drainage, overall significantly improved from prior. This defect in the eponychial fold is leaving a fair amount of the germinal matrix uncovered. The distal portion of the nail plate does appeared to be moving out distally, and he says he has trimmed the nail. Psych Appearance: grossly normal Affect: normal affect Attitude: cooperative Quality Reporting (2019) Adult ([facility] 138/04/02/68) Smoking risk assessment performed?: Yes Patient Tobacco Use Status: Never used Tobacco Assessment & Plan Assessment & Plan (1) Laceration of left middle finger: Code(s): S61.213A - Laceration without foreign body of left middle finger without damage to nail, initial encounter Category: Medical (2) Foreign body (FB) in soft tissue: Code(s): M79.5 - Residual foreign body in soft tissue Category: Medical (3) Infected finger laceration: Code(s): S61.219A - Laceration without foreign body of unspecified finger without damage to nail, initial encounter; L08.9 - Local infection of the skin and subcutaneous tissue, unspecified Category: Medical Plan Assessment & Plan: 1. Left middle finger laceration and avulsion of the central portion of the eponychial fold, S/P removal of piece of loose nail plate and attempted re- approximation With displacement of a proximal portion of the nail plate from the germinal matrix DOI: ~11/10/23 Date of in-office Procedure: 11/18/23 2. Left middle finger defect in the Eponychial fold DOI: ~11/10/23 Date of in-office Procedure to remove it: 11/18/23 I educated him about this condition, as well as the benefits of a possible skin re-arrangement procedure to bring some skin from proximal to distal and better cover the germinal matrix, including minimizing the risks of possible recurrent infections I also explained that it will take several months before we know how well he can grow a new fingernail. He says he is not interested if the reason is purely cosmetic. I explained that I have some concerns at leaving it the way it is may result in a higher rate of infection around this area, and he expressed understanding. He is travelling frequently out of the country over the next 4 months He has some Hyperemia, without any drainage, though this is improving He is leaving on 12/29/[address] the [facility] for 2 weeks. Out of an abundance of caution, he was given a 10 day course of PO Augmentin to bring on his trip just in case he develops a new infection. If he is doing well he does not need to take this. He is leaving in February to go to [facility] for several months He can follow up prn Scribed for Zahira Miller MD by Elkin Zaidi, registered medical transcriptionist, on 12/29/23 at 10:30 AM, EST. Medications: New amoxicillin-pot clavulanate 875-125 mg 1 tab PO Q12H 20 tabs 0RF Coding Level of Care Code Est Pt Level 3 (29635) Diagnoses Laceration of left middle finger S61.213A Foreign body (FB) in soft tissue M79.5 Infected finger laceration S61.219A; L08.9
== END 2023-12-29 10:38 | disposition home or self-care (01) ==
PROVIDERS: PCP Family Medicine; Visit Provider Orthopaedic Surgery
DX: S61.213A Laceration without foreign body of left middle finger without damage to nail, initial encounter (principal); M79.5 Residual foreign body in soft tissue; L08.9 Local infection of the skin and subcutaneous tissue, unspecified; Z04.2 Encounter for examination and observation following work accident
CPT/HCPCS: 99213

== ENCOUNTER → 2023-12-29 09:37 | Outpatient (BNVA) | payer MEDICARE, SELFPAY | PROVIDERS: PCP Family Medicine; Visit Provider Orthopaedic Surgery | DX: S61.213D Laceration without foreign body of left middle finger without damage to nail, subsequent encounter (principal); S61.219D Laceration without foreign body of unspecified finger without damage to nail, subsequent encounter; M79.5 Residual foreign body in soft tissue; L08.9 Local infection of the skin and subcutaneous tissue, unspecified | CPT/HCPCS: 99212 ==

== ENCOUNTER 2024-01-27 08:29 | Outpatient (AMB) | payer MEDICARE, SELFPAY ==
--- NOTE | 2024-01-27 08:35 | MHC.PC.OV ---
Vital Signs 01/27/24 08:38 Height 5 ft 11 in Weight 210 lb BMI 29.3 BP 120/66 Blood Pressure Location Rt brachial Position Sitting Respiration 16 Pulse 72 Pulse Source Pulse Oximeter Temp 98.4 F Temp Source Oral Pulse Oximetry (%) 98 Oxygen Delivery Method Room Air Intake Visit Reasons: 8-[address] Tellez PFT results/lung concerns Intake Note: PFT f/u Allergies aspirin [ASPIRIN] Allergy (Severe, Verified 01/27/24 08:36) RASH SWELLING, hives, swelling Medication List - Last Reconciled 01/27/24 by Erik Azul MD No Known Home Meds Tobacco use date assessed: 09/03/23 Dental Screening Dental Screen Date: 10/22/22 HPI 8-[address] Tellez PFT results/lung concerns HPI Details 68 y/o male presents to f/u chronic conditions. Reports ear pain/discomfort. 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 Has also noted episodes of shortness of breath during the night. He does have a CPAP machine. He had also reported an episode of shortness of breath while exercising. Denies any chest pain. HPI Comments History of Present Illness Details Documentation assistance for Erik Azul MD, was provided by Jeff Williamson,? Wood Grainer on 01/27/2024 at 9:14 PM MARINA. I, Dr. Azul, have read, observed, and verified documentation. ?? [facility] Medical History Elevated transaminase level Left foot pain Hives of unknown origin Sleep apnea Anemia GERD (gastroesophageal reflux disease) Surgical History Hx of excision of mass H/O colonoscopy History of back surgery Hx of cholecystectomy Hx of hernia repair Family History Father Renal failure Mother Cancer of pancreas Social History Household Members: Spouse Housing: House Are you a primary childcare director to a significant other at home: No Do you presently have visiting nurse or other home services: No Alcohol intake: current Alcohol intake frequency: does not drink Patient Tobacco Use Status: Never used Tobacco e-Cigarette/Vaping Use: Never Used Second Hand Smoke Exposure: No service: No Current occupational exposures/hazards: No Cognitive needs: No Hearing needs: No Vision needs: No Questionnaire PHQ-9 Over the last 2 weeks, how often have you been bothered by any of the following problems? 1. Little interest or pleasure in doing things: not at all 2. Feeling down, depressed, or hopeless: not at all 3. Trouble falling or staying asleep, or sleeping too much: nearly every day 4. Feeling tired or having little energy: not at all 5. Poor appetite or overeating: not at all 6. Feeling bad about yourself - or that you are a failure or have let yourself or your family down: not at all 7. Trouble concentrating on things, such as reading the newspaper or watching television: not at all 8. Moving or speaking so slowly that other people could have noticed. Or the opposite - being so fidgety or restless that you have been moving around a lot more than usual: not at all 9. Thoughts that you would be better off or of hurting yourself in some way: not at all Total score: 3 Source: Developed by Drs. Franki Galvez, Juliann Hoover, Jadon Mathis and colleagues, with an educational christy from [employer]. Thrive Questionnaire I am a: Patient What is your living situation today?: I have a steady place to live Within the past 12 months, did the food you bought not last and you didn't have the money to get more?: Never true Within the past 12 months, did you worry whether your food would run out before you got money to buy more?: Never true Do you have trouble paying for medicines?: No Do you have trouble getting transportation to medical appointments?: No Do you have trouble paying your heating and electricity bill?: No Do you have trouble taking care of your child, family member or friend?: No Do you have trouble with day-to-day activities such as bathing, preparing meals, shopping, managing finances, etc.?: No Are you currently unemployed and looking for a job?: No Are you interested in more education?: No Please select the resources that you would like help with: None Currently or been in a relationship where the following occur: No concerns reported THRIVE Score: 0 AUDIT C Alcohol Use Questionnaire (AUDIT-C) 1. How often do you have a drink containing alcohol?: 2-3 times a week Total Score: 3 TORY-7 AMB Questionnaire TORY-7 Date TORY - 7 assessed: 10/06/22 Feeling nervous, anxious, or on edge: 0 = Not at all Not being able to stop or control worryin = Not at all Worrying too much about different things: 0 = Not at all Trouble relaxin = Not at all Being so restless that it is hard to sit still: 2 = More than half the days Becoming easily annoyed or irritable: 0 = Not at all Feeling afraid as if something awful might happen: 0 = Not at all Total TORY-7 score (0-4 normal; 5-9 mild; 10-14 moderate; 15-21 severe): 2 Source: Developed by Drs. Franki Galvez, Juliann Hoover, Jadon Mathis and colleagues, with an educational christy from [employer]. Review of Systems Const Denies chills, Denies fatigue, Denies fever(s), Denies headache(s) and Denies weakness ENT Details: Ear pain Denies dizziness and Denies headache(s) Card Denies chest pain, Denies lightheadedness, Denies dyspnea and Denies other (Palpitations) Resp Denies cough, Denies dyspnea, Denies wheezing and Denies other ( shortness of breath) Musc Denies numbness and Denies tingling Neuro Denies dizziness, Denies headache(s), Denies numbness, Denies tingling, Denies paresthesias and Denies weakness Psych Denies anxiety and Denies depression Endo Denies fatigue Aller/Immun Denies wheezing Physical exam (Primary Care) Vital Signs: Last Vital Signs Temp 98.4 F 01/27/24 08:38 Pulse 72 01/27/24 08:38 Resp 16 01/27/24 08:38 BP 120/66 01/27/24 08:38 Pulse Ox 98 01/27/24 08:38 Oxygen Delivery Method Room Air 01/27/24 08:38 BMI result Body Mass Index 29.3 Tobacco/Smoking Status: Tobacco use Status Tobacco use date assessed 09/03/23 01/27/24 08:40 Patient Tobacco Use Status Never used Tobacco 01/27/24 08:40 e-Cigarette/Vaping Use Never Used 01/27/24 08:40 PHQ-9: PHQ-9 Score PHQ-9: Total score 3 01/27/24 08:40 Currently or been in a relationship where the following occur: No concerns reported Const General: no acute distress and well developed Nutritional Appearance: well nourished Orientation/consciousness: patient oriented x3 HENMT Head: Yes normocephalic and Yes atraumatic Eyes General: appearance normal, both eyes and all related structures Pupils: Equal, round and reactive pupils present EOM: EOMs intact bilaterally Resp Effort & Inspection: normal respiratory effort Auscultation: clear to auscultation bilaterally Cardio Rate: regular rate Rhythm: regular rhythm Heart sounds: S1 normal heart sound present, S2 normal heart sound present, no gallops, no murmurs and no rubs Neuro General: patient oriented x3 and gait normal Cranial nerves: Yes Equal, round and reactive pupils present Psych Affect: normal affect Coding Level of Care Code Est Pt Level 4 (60576) Diagnoses Otalgia H92.09 SOB (shortness of breath) R06.02 GENOVEVA on CPAP G47.33 Dust exposure Z77.29 Assessment & Plan Assessment & Plan (1) Otalgia: Code(s): H92.09 - Otalgia, unspecified ear Category: Medical Plan: Patient?appears?to?have?had?a?small?right?TM?perforation This?appears?to?be?healing Continue?to?prevent Water?from?getting?in?ear.?no?evidence?of?infection?at?this?time Should?continue?to?improve?on?its?own (2) SOB (shortness of breath): Code(s): R06.02 - Shortness of breath Category: Medical Plan: Episodes?of?shortness?of?breath. 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
[2024-01-27 08:38] VITALS: BP 120/66; PULSE 72; RESP 16; TEMP 36.9; O2SAT 98; BMI 29.3
--- OUTSIDE RECORDS SUMMARY | 2024-01-27 08:41 | XMS_ITS ---
Author Organization [facility] Address [address] [place] [address] Care Team Providers Care Yoke Setter Name Role Phone Erik Azul Primary Care Provider UnavailFranki Glez [phone] ALLERGIES Allergen (clinical drug ingredient) Drug/Non Drug Allergy documented on EMR Reaction Allergy Type Onset Date Status aspirin Aspirin Unknown Drug Allergy Active REASON FOR VISIT Patient presents today for a COLON SCREENING SOCIAL HISTORY Sex Assigned At : Social History Observation Description Sex Assigned At Unknown Alcohol Screen Question Answer Notes Did you have a drink contain ing alcohol in the past year? Yes How often did you have a dri nk containing alcohol in the past year? Monthly or less (1 point) How many drinks did you have on a typical day when you were drinking in the past year? 3 or 4 drinks (1 point) How often did you have 6 or more drinks on one occasion in the past year? Never (0 point) Points 2 Interpretation Negative PROBLEMS Problem Type ICD Code Onset Dates Problem Status W/U Status Risk SNOMED Code Notes Problem Encounter for other preprocedural examination (Z01.818) Active confirmed Pre-procedure evaluation check (738623093) VITAL SIGNS BMI 28.57 kg/m2 05/20/2023 Blood pressure systolic 000 mm Hg 05/20/19 24 Blood pressure diastolic 00 mm Hg 024 Height 70 in 05/20/2023 Temperature 98.0 degrees Fahrenheit 05/20/19 24 Weight 199 lb 2 oz lbs 05/20/2023 Encounters Encounter Location Date Provider Diagnosis [facility] [address] [place] [address] 05/20/2023 Franki Montes Encounter for screen ing for malignant neoplasm of colon Z12.11 and Encounter for other preprocedural examination Z01.818 ASSESSMENTS Encounter Date Diagnosis Assessment Notes Treatment Notes Treatment Clinical Notes 05/20/2023 Encounter for screening for malignant neoplasm of colon (ICD-10 - Z12.11) 05/20/2023 Encounter for other preprocedural examination (ICD-10 - Z01.818) PLAN OF TREATMENT Future Test Test Name Order Date COLONOSCOPY 05/20/2023 Next Appt Details Follow Up: prn, Reason: Progress Notes * Examination Category Sub-Category Detail Notes General Examination GENERAL APPEARANCE: pleasant , well nourished, well developed, in no acute distress EYES: sclera non-icteric NECK/THYROID: no cervical lymphade nopathy, neck supple HEART: S1, S2 normal LUNGS: clear to auscultatio n bilaterally ABDOMEN: normal bowel sounds, no guarding or rigidity, no hepatosplenomegaly, no masses palpable, soft, nontender, nondistended. NEUROLOGIC: alert and oriented SKIN: nonjaundiced, no spi malinda angiomata. EXTREMITIES: no edema ORAL CAVITY: mucosa moist
--- OUTSIDE RECORDS SUMMARY | 2024-01-27 08:41 | XMS_ITS ---
Author Organization [facility] Address [address] [place] [address] Care Team Providers Care Welding Systems And Equipment Repairer Name Role Phone Erik Azul Primary Care Provider Unavailab Franki Shaver [phone] REASON FOR VISIT schedule colon with the hospital Encounters Encounter Location Date Provider Diagnosis [facility] [address] [place] [address] 05/20/2023 Franki Montes PLAN OF TREATMENT No Information
--- OUTSIDE RECORDS SUMMARY | 2024-01-27 08:41 | XMS_ITS ---
Author Organization [facility] Address [address] [place] [address] Care Team Providers Care Assurance Senior Manager Name Role Phone Erik Azul Primary Care Provider Unavailab Franki Shaver Unavailable [phone] REASON FOR VISIT screening colon PROBLEMS Problem Type ICD Code Onset Dates Problem Status W/U Status Risk SNOMED Code Notes Problem Diverticulosis of large intestine without perforation or abscess without bleeding (K57.30) Active confirmed Diverticul ar disease of colon (930017808) Encounters Encounter Location Date Provider Diagnosis [facility] [place] [address] [place], [place] [phone] 09/28/2023 Franki Montes Colon cancer scree domenico Z12.11 ; Colon polyps K63.5 ; Diverticulosis of large intestine without perforation or abscess without bleeding K57.30 and Other hemorrhoids K64.8 ASSESSMENTS Encounter Date Diagnosis Assessment Notes Treatment Notes Treatment Clinical Notes 09/28/2023 Colon cancer screening (ICD-10 - Z12.11) 09/28/2023 Colon polyps (ICD-10 - K63.5) 09/28/2023 Diverticulosis of large intestine without perforation or abscess without bleeding (ICD-10 - K57.30) 09/28/2023 Other hemorrhoids (ICD-10 - K64.8) PLAN OF TREATMENT No Information
--- OUTSIDE RECORDS SUMMARY | 2024-01-27 08:42 | XMS_ITS | Patient Health Record ---
Author Organization [facility] Address [address] [place] [address] Care Team Providers Care Navy Airspace Officer Name Role Phone Erik Azul Primary Care Provider UnavailFranki Glez Unavailable [phone] ALLERGIES Allergen (clinical drug ingredient) Drug/Non Drug Allergy documented on EMR Reaction Allergy Type Onset Date Status aspirin Aspirin Unknown Drug Allergy Active RESULTS Component Value Reference Range Notes Pathology Reviewed date:10/06/2023 12:57:32 PM Interpretation: Performing Lab:[facility], [address] [place] [id number] Notes/Report: REASON FOR REFERRAL No Information IMMUNIZATIONS Vaccine Route Administration Date Status Comme nts Influenza Unknown 10/11/2019 Administered Influenza Unknown 12/02/2022 Administered SOCIAL HISTORY Sex Assigned At : Social [...] Risk SNOMED Code Notes Problem Encounter for screening for malignant neoplasm of colon (Z12.11) Active confirmed [id number] Problem Encounter for other preprocedural examination (Z01.818) Active confirmed Pre-procedure evaluation check (825317668) Problem Diverticulosis of large intestine without perforation or abscess without bleeding (K57.30) Active confirmed Diverticul ar disease of colon (991531905) VITAL SIGNS Temperature 98.0 degrees Fahrenheit 05/20/2023 Blood pressure diastolic 00 mm Hg 05/20/2023 Height 70 in 05/20/2023 Blood pressure systolic 000 mm Hg 05/20/2023 Weight 199 lb 2 oz lbs 05/20/2023 BMI 28.57 kg/m2 05/20/2023 Encounters Encounter Location Date Provider Diagnosis [facility] [place] [address] [place] [phone] 09/28/2023 Franki Montes Colon cancer screeni ng Z12.11 ; Colon polyps K63.5 ; Diverticulosis of large intestine without perforation or abscess without bleeding K57.30 and Other hemorrhoids K64.8 [facility] [address] [place] [address] 03/06/2023 Franki Montes [facility] [address] [place] [address] 05/20/2023 Franki Montes Encounter for screen ing for malignant neoplasm of colon Z12.11 and Encounter for other preprocedural examination Z01.818 [facility] [address] [place] [address] 05/20/2023 Franki Montes ASSESSMENTS Encounter Date Diagnosis Assessment Notes Treatment Notes Treatment Clinical Notes 09/28/2023 Colon cancer screening (ICD-10 - Z12.11) 09/28/2023 Colon polyps (ICD-10 - K63.5) 05/20/2023 Encounter for screening for malignant neoplasm of colon (ICD-10 - Z12.11) 05/20/2023 Encounter for other preprocedural examination (ICD-10 - Z01.818) 09/28/2023 Diverticulosis of large intestine without perforation or abscess without bleeding (ICD-10 - K57.30) 09/28/2023 Other hemorrhoids (ICD-10 - K64.8) PLAN OF TREATMENT Future Test Test Name Order Date COLONOSCOPY 12/29/2012 COLONOSCOPY 05/20/2023 Insurance Providers Payer Name Payer Address Payer Phone Subscriber Number Group Number Insured Name Patient Relationship to Insured Coverage Start Date Coverage End Date MEDICARE OF [place] [address] [id number] JUNIOR FLORESREY Self - patient is the insured MEDEX ATTN CLAIMS [address] [place] [address] [phone] [id number] JUNIOR FLORESREY Self - patient is the insured MEDICAL (GENERAL) HISTORY Medical History History ICD Code Colonoscopy 03-18-2007--only a hyperplastic polyp, and diverticulosis and internal hemorrhoids Denies AR,DM,CVA,Lung disease,renal dise ase Hx of intermittent hives Sleep apnea/ on cpap machine Negative colonoscopy in 01/2013 [facility] Surgical History Surgery Date(Month/Year) Hernia surgery Back surgery L5 S1 Upper arm benign tumor removed left CCY
== END 2024-01-27 09:23 | disposition home or self-care (01) ==
PROVIDERS: PCP Family Medicine; Visit Provider Family Medicine
DX: H92.09 Otalgia, unspecified ear (principal); R06.02 Shortness of breath; G47.33 Obstructive sleep apnea (adult) (pediatric); Z77.29 Contact with and (suspected) exposure to other hazardous substances

== ENCOUNTER → 2024-01-27 08:29 | Outpatient (BNVA) | payer MEDICARE, SELFPAY | PROVIDERS: PCP Family Medicine; Visit Provider Family Medicine | DX: H92.09 Otalgia, unspecified ear (principal); R06.02 Shortness of breath; G47.33 Obstructive sleep apnea (adult) (pediatric); Z77.29 Contact with and (suspected) exposure to other hazardous substances | CPT/HCPCS: 96127; 99212 ==

== ENCOUNTER 2024-01-28 09:05 | Outpatient (REF) | payer MEDICARE, SELFPAY ==
--- NOTE | ~2024-01-28 | XR_ITS ---
EXAMINATION: XR CHEST CLINICAL INFORMATION: R06.02 - Shortness of breath COMPARISON: 11/17/2016 TECHNIQUE: PA and lateral views of the chest were obtained. FINDINGS: Mild perihilar bronchial wall thickening, left side greater than right. No focal airspace consolidation. No pneumothorax or pleural effusion. Cardiac and mediastinal contours are normal. Pulmonary vasculature is unremarkable. Trachea is midline. Mild degenerative disc disease in the thoracic spine. Cholecystectomy clips in the right upper quadrant. XR/XR chest 2V IMPRESSION: Mild perihilar bronchial wall thickening as can be seen with bronchitis or asthma. No focal airspace consolidation. Electronically signed by: Delfino Gómez MD 01/30/2024 11:17 PM [facility] MONIQUE
--- OUTSIDE RECORDS SUMMARY | 2024-01-28 09:17 | XMS_ITS | Patient Health Record ---
Author Organization [facility] Address [address] [place] [address] Care Team Providers Care Picking Supervisor Name Role Phone Erik Azul Primary Care Provider UnavailFranki Glez Unavailable [phone] ALLERGIES Allergen (clinical drug ingredient) Drug/Non Drug Allergy documented on EMR Reaction Allergy Type Onset Date Status aspirin Aspirin Unknown Drug Allergy Active RESULTS Component Value Reference Range Notes Pathology Reviewed date:10/06/2023 12:57:32 PM Interpretation: Performing Lab:[facility], [address] [place] [phone] Notes/Report: REASON FOR REFERRAL No Information IMMUNIZATIONS [...] malignant neoplasm of colon (Z12.11) Active confirmed 401334761 Problem Encounter for other preprocedural examination (Z01.818) Active confirmed Pre-procedure evaluation check (497802117) Problem Diverticulosis of large intestine without perforation or abscess without bleeding (K57.30) Active confirmed Diverticul ar disease of colon (389260580) VITAL SIGNS Temperature 98.0 degrees Fahrenheit 05/20/2023 Blood pressure diastolic 00 mm Hg 05/20/2023 Height 70 in 05/20/2023 Blood pressure systolic 000 mm Hg 05/20/2023 Weight 199 lb 2 oz lbs 05/20/2023 BMI 28.57 kg/m2 05/20/2023 Encounters Encounter Location Date Provider Diagnosis [facility] [place] [address] [place] [phone] 09/28/2023 Franki Montes Colon cancer screeni ng Z12.11 ; Colon polyps K63.5 ; Diverticulosis of large intestine without perforation or abscess without bleeding K57.30 and Other hemorrhoids K64.8 [facility] [address] [place] [phone] 03/06/2023 Franki Montes [facility] [address] [place] [address] 05/20/2023 Franki Montes Encounter for screen ing for malignant neoplasm of colon Z12.11 and Encounter for other preprocedural examination Z01.818 [facility] [address] [place] [phone] 05/20/2023 Franki Montes ASSESSMENTS Encounter Date Diagnosis [...] OF [place] [address] [id number] JUNIOR FLORESREY Self - patient is the insured MED[employer] ATTN CLAIMS [address] [place] [phone] [id number] JUNIOR FLORESREY Self - patient is the insured MEDICAL (GENERAL) HISTORY Medical History History ICD Code Colonoscopy 03-18-2007--only a hyperplastic polyp, and diverticulosis and internal hemorrhoids Denies CA,DM,CVA,Lung disease,renal dise ase Hx of intermittent hives Sleep apnea/ on cpap machine Negative colonoscopy in 01/2013 [facility] Surgical History Surgery Date(Month/Year) Hernia surgery Back surgery L5 S1 Upper arm benign tumor removed left CCY
--- OUTSIDE RECORDS SUMMARY | 2024-01-28 09:17 | XMS_ITS ---
Author Organization [facility] Address [address] [place] [address] Care Team Providers Care Battery Assembler Dry Cell Name Role Phone Erik Azul Primary Care Provider Unavailab Franki Shaver [phone] REASON FOR VISIT schedule colon with the hospital Encounters Encounter Location Date Provider Diagnosis [facility] [address] [place] [address] 05/20/2023 Franki Montes PLAN OF TREATMENT No Information
--- OUTSIDE RECORDS SUMMARY | 2024-01-28 09:17 | XMS_ITS ---
Author Organization [facility] Address [address] [place] [address] Care Team Providers Care Limousine And Hearse Upholsterer Name Role Phone Erik Azul Primary Care Provider Unavailab Franki Shaver Unavailable [phone] REASON FOR VISIT screening colon PROBLEMS Problem Type ICD Code Onset Dates Problem Status W/U Status Risk SNOMED Code Notes Problem Diverticulosis of large intestine without perforation or abscess without bleeding (K57.30) Active confirmed Diverticul ar disease of colon (924769111) Encounters Encounter Location Date Provider Diagnosis [facility] [place] Outpatient [address] [place], [place] [phone] 09/28/2023 Franki Montes Colon cancer scree domenico [...]
--- OUTSIDE RECORDS SUMMARY | 2024-01-28 09:17 | XMS_ITS ---
Author Organization [facility] Address [address] [place] [address] Care Team Providers Care Clay Puddler Name Role Phone Erik Azul Primary Care Provider UnavailFranki Glez [phone] ALLERGIES Allergen (clinical drug ingredient) Drug/Non Drug [...] examination (Z01.818) Active confirmed Pre-procedure evaluation check (982522728) VITAL SIGNS BMI 28.57 kg/m2 05/20/2023 Blood pressure systolic 000 mm Hg 05/20/19 24 Blood pressure diastolic 00 mm Hg 024 Height 70 in 05/20/2023 Temperature 98.0 degrees Fahrenheit 05/20/19 24 Weight 199 lb 2 oz lbs 05/20/2023 Encounters Encounter Location Date Provider Diagnosis [facility] [address] [place] [address] 05/20/2023 Franki Montes Encounter for screen ing [...]
[2024-01-28 13:42] LABS: Appearance Urine Turbid; Color Urine Yellow; Glucose Urine UA Negative (Negative); Leukocyte Esterase Urine Negative (Negative); Nitrite Urine Negative (Negative); Specific Gravity - Urine 1.025 (1.005-1.025); Urine Blood Negative (Negative); Urine Ketones Negative (Negative); Urine Protein Negative (Neg-Trace)
== END 2024-01-28 09:06 | disposition home or self-care (01) ==
LOC: HO.XRAY 09:05
PROVIDERS: PCP Family Medicine; Visit Provider Family Medicine
DX: R06.02 Shortness of breath (principal); Z00.00 Encounter for general adult medical examination without abnormal findings
CPT/HCPCS: 71046; 81003

== ENCOUNTER 2024-11-16 07:57 | Outpatient (REF) | payer MEDICARE, SELFPAY ==
[2024-11-16 11:48] LABS: Hematocrit 43.8 % (42.0-52.0); Hemoglobin 14.9 g/dl (14.0-18.0); Mean Corpuscular HGB Conc 34.0 g/dl (31.0-36.0); Mean Corpuscular Hemoglobin 31.1 pg (27.0-33.0); Mean Corpuscular Volume 91.4 fL (80.0-98.0); NRBC Abs Auto 0.000 X10*3/uL (0.0-0.012); NRBC Pct Auto 0.0 /100WBC (0.0-0.2); Platelet Count 233 X10*3/uL (160-400); Red Blood Count 4.79 X10*6/uL (4.60-5.80); White Blood Count 4.5 X10*3/uL (4.8-10.8)
[2024-11-16 12:08] LABS: Total Hemoglobin (HGBA1C) 3738.2082 umol/L
[2024-11-16 14:58] LABS: Alanine Aminotransferase 46 U/L (0-40); Albumin Level 4.7 g/dL (3.5-5.0); Alkaline Phosphatase 73 U/L (39-117); Anion Gap 11 (12-20); Aspartate Amino Transferase 39 U/L (5-37); Blood Urea Nitrogen 19 mg/dL (9-16); Calcium 9.1 mg/dL (8.4-10.2); Carbon Dioxide 27 mmol/L (22-29); Chloride 108 mmol/L (96-108); Cholesterol 232 mg/dL (<200); Estimated Glomerular Filt Rate > 60; HDL Cholesterol 41 mg/dL (>40); Potassium 4.7 mmol/L (3.3-5.1); Sodium 141 mmol/L (135-145); Total Protein 7.3 g/dL (6.5-8.0); Triglycerides 145 mg/dL (<150)
[2024-11-16 15:25] LABS: Folate 12.4 ng/mL (> or = 4.0); Vitamin B12 701 pg/mL (200-900)
[2024-11-21 17:48] LABS: Testosterone, Free 33.7 pg/mL (30.0-135.0)
== END 2024-11-16 07:58 | disposition home or self-care (01) ==
LOC: HO.WFDLDS 07:57
PROVIDERS: PCP Family Medicine; Visit Provider Nurse Practitioner Family
DX: Z00.00 Encounter for general adult medical examination without abnormal findings (principal); N40.0 Benign prostatic hyperplasia without lower urinary tract symptoms; K21.9 Gastro-esophageal reflux disease without esophagitis; N52.9 Male erectile dysfunction, unspecified; E78.2 Mixed hyperlipidemia; H81.13 Benign paroxysmal vertigo, bilateral; L50.1 Idiopathic urticaria; G47.33 Obstructive sleep apnea (adult) (pediatric); R73.01 Impaired fasting glucose; D64.9 Anemia, unspecified; M79.674 Pain in right toe(s); Z28.21 Immunization not carried out because of patient refusal; Z71.89 Other specified counseling; Z12.5 Encounter for screening for malignant neoplasm of prostate; Z79.899 Other long term (current) drug therapy
CPT/HCPCS: 36415; 80053; 80061; 82306; 82607; 82746; 83036; 84153; 84402; 84403; 84443; 85027; 99212; 99497

== ENCOUNTER 2024-11-16 07:57 | Outpatient (AMB) | payer MEDICARE, SELFPAY ==
--- NOTE | 2024-11-16 08:02 | A.OFFVIS_ITS ---
Intake Vital Signs 11/16/24 08:06 Height 5 ft 11 in Weight 212 lb BMI 29.6 BP 132/70 Blood Pressure Location Rt brachial Position Sitting Pulse 62 Pulse Source Auscultation Pulse Oximetry (%) 96 Oxygen Delivery Method Room Air Intake Visit Reasons: MAWV Allergies aspirin (ASPIRIN) Allergy (Severe, Verified 11/16/24 08:08) RASH SWELLING, hives, swelling Medication List - Last Reconciled 11/16/24 by HARRY Kumar- No Known Home Meds HPI HPI Comments History of Present Illness Details Here today for AWV. The Medicare Annual Wellness Visit (AWV) is a yearly appointment with a health professional to identify health risks and help reduce them and to create or update a personalized prevention plan. During a Medicare AWV, health professionals should also review any current opioid prescriptions, detect any cognitive impairment, and establish or update medical and family history. SurgHx: Y no changes FHx: Y no changes SocHx: Y no changes Health Maintenance: See scanned preventative medicine assessment with personalized health plan and screening schedule. Colon: 09/2023 Vaccines: tdap 2014, declined flu, declined vaccines AAA screen: NA EKG: done today NSR labs 09/17/23 WNL except mild elevation in TSH [place]q of Care: GI Sleep Med Neuro PT Derm Visual Acuity: last eye exam this year; wears glasses. ?? cataracts Hearing Screening: no issues ACP: HCP and MOLST provided. Dietary/Nutrition/Exercise Edu provided: Y During the course of the visit the patient was educated and counseled about appropriate screening and preventative services. Patient instructions were provided to the patient in written or electronic format. I have reviewed and verified the above information. History of Present Illness The patient is a 69-year-old male presenting for AWV and problems. Dizzy twice per week, lasts 3-5 seconds, unrelated to change Reflux like sx, started below chest and goes to throat, lasts 10seconds - 2 min. Worse since onset. Not correlated w/ dizziness, three times per week Boil side of big toe, r foot, started 5 months. No improvement or worsening 10 days ago changed 2 windows, injured R thumb. feels the knuckle is sore. wonders if strained or if OA. ED issues, decrease ejaculation. This is new. Due for labs. Wants PSA, Testosterone and labs. Dizziness: - Episodes twice a week for 3-5 seconds. - Occurs while lying down or standing. - Recent onset over past few months. Acid reflux: - Heartburn lasts 10 seconds to 2 minute s. - Starts below chest, reaches throat. - Not concurrent with dizziness. Sexual dysfunction: - Decreased erections and ejaculation. - Recently began occurring. Fatigue: - Reports worst condition in 50 years. - Lacks ambition, gets sore easily. Weight gain: - Recent weight gain due to stress, less activity. Chronic urticaria: - Managed with Claritin, goes nearly alix ry two days without it. - Severe reaction to flu and COVID shots . Right foot lesion: - White lesion on right big toe, painles s, five months duration. Right thumb pain: - Sore knuckle after thumb strain. Insomnia: - Poor sleep quality despite CPAP. - Awakes early, non-THC gummies occasion ally help. Family History - No reported changes in family or medic al history in the last year. 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 - Reports lack of gym participation, res ulting in physical deconditioning. - Stressed by financial expenditures ove r pool installation. - CPAP used for sleep apnea. - Consumes Claritin for chronic urticari a management. - Experiences dietary changes, overeatin g suggestive of stress coping. Health Maintenance - Declined flu vaccination due to prior adverse urticaria response. - Opted to have PSA, testosterone, and c holesterol levels tested. - Avoids unnecessary pharmaceutical medi cations. - Utilizing CPAP for sleep apnea managem ent. - Referred for potential vestibular ther apy for dizziness management. Review of Systems - General: Reports weight gain, fatigue. - Eyes: Denies noticeable changes in vis ion, wears reading glasses. - Ears/Nose/Throat: Denies significant c hanges in hearing; ear protection used during activities. - Cardiovascular: Denies significant hea rt-related symptoms beyond brief dizziness. - Respiratory: Reports poor sleep despit e CPAP use. - Gastrointestinal: Reports symptoms ind icative of acid reflux. - Genitourinary: Reports sexual dysfunct ion, including diminished erections and ejaculation. - Musculoskeletal: Reports right thumb p ain and right foot lesion. - Neurological: Reports episodes of dizz iness. - Dermatological: Manages chronic urtica melissa, periodic mild lesions. - Hematologic/Lymphatic: Denies bleeding or bruising easily. - Psychological: Reports stress and poor sleep affecting overall wellness. Physical Exam General: Well developed, well nourished, in no acute distress. Appears stated age. Reports weight gain since last year due to stress. Head: Normocephalic, atraumatic. Reports dizziness episodes occurring twice a week, lasting 3-5 seconds. Eyes: Pupils are equal, round and reactive to light and accommodation. Conjunctivae are clear. Scleras nonicteric bilat. Vision grossly normal. Last eye exam within 12 months. Wears corrective lenses (cheaters). Possible cataracts mentioned. + nystagmus with position change Ears: TMs clouding bilat, EACS WNL. Dizziness w position changes Nose: Patent, without discharge. Neck: No carotid bruit bilat. Supple, no adenopathy or thyromegaly. Breast: Edu on SBE Lungs: Clear to auscultation bilaterally. No rales, rhonchi or wheeze noted. Good air flow in all [place]. Heart: Regular rate and rhythm. No murmurs, click, rubs or gallops are noted. Abdomen: Bowel sounds present in all quadrants. The abdomen is soft, nontender, with no masses or organomegaly noted. No hernias are noted. Reports symptoms of acid reflux starting below the chest and sometimes reaching the throat. : Deferred. Reviewed MONALISA & recommendations Pulses: Peripheral pulses are equal and palpable bilaterally. Extremities: No clubbing, cyanosis nor edema is noted.Firm round lesion noted on R great toe proximal to nail, nonfluctuant . R thumb mild localized edema, nuerovasc intact Neurologic: Gait and station normal. Cranial Nerves 2-12 intact. Motor strength grossly symmetrical and intact. No sensory loss. Balance normal. Reports dizziness episodes. Skin: No rashes, ulcers, or lesions noted. Turgor is good. Skin color is good. Hair and nails are without abnormalities. Psych: Normal eye contact, affect and mood appropriate, and normal interactions. Patient is alert and appropriate to context. Reports stress and lack of ambition affecting physical condition. Results - Labs: Awaiting PSA, testosterone, chol esterol tests. - Tests: H. pylori stool test ordered. - Diagnostics: X-ray of right foot lesmichael n planned. Discussion Notes I discussed multiple symptoms with the patient, including dizziness, reflux, and sexual dysfunction. For dizziness, we considered vestibular therapy potentially beneficial if inner ear issues are confirmed. I reviewed risks, benefits, and alternatives, assuring the patient no need for immediate pharmacotherapy. I emphasized the importance of non-medication techniques, with Flonase offered as an option. Sexual dysfunction will be assessed with testosterone levels due to recent onset symptoms. The patient's reflux prompted an H. pylori stool test discussion, suggesting bacterial contribution. Regarding chronic urticaria, avoiding flu vaccination was supported due to severe hives. I recommended healthy lifestyle approaches and encouraged regular physical activity. EKG service and follow-up arrangements discussed, underscoring cardiac integrity and patient-centric decision-making. Consent for procedures was obtained verbally, utilizing the patient's understanding and support from their spouse, who is medically knowledgeable. Follow-up will be scheduled after diagnostic results, with details provided through the patient portal. Patient was given time to ask questions. All questions were answered to their satisfaction. Assessment and Plan 1. Dizziness - Refer for vestibular therapy. - Consider allergy-related issues. - if no improvement consider further joe ting and work up 2. Acid Reflux - Order H. pylori stool test. - results to the portal; declined meds; fu with pcp if cont. 3. Sexual Dysfunction - Order testosterone levels. 4. Fatigue - Encourage regular exercise. check t levels wear CPAP 5. Weight Gain - Recommend lifestyle changes. 6. Chronic Urticaria - use Claritin as needed. 7. Right Foot Lesion - Order foot X-ray. 8. Right Thumb Pain - Monitor, mainly from overuse. 9. Insomnia - Continue CPAP, consider gummies. Patient Instructions - Follow up with vestibular therapy for dizziness. - Complete the H. pylori test as instruc dionicio and return results. - Increase physical activity gradually. - Continue managing urticaria with Alejandra tin. - Avoid flu shots for urticaria control. - Await lab results from PSA, testostero ne, and cholesterol tests. - Monitor any thumb pain changes and rep ort severe symptoms. - Use CPAP regularly and try gummies for improved sleep. - RTO 3 months to fu with PCP on above. Sooner as needed. Consent I thoroughly explained the planned procedures, including the H. pylori stool test and x-ray for the foot lesion, detailing the purpose and potential outcomes. The patient understood the diagnostic intent and agreed with the considered process, especially concerning the vestibular therapy for dizziness management. Consent was obtained verbally in the presence of the patient's spouse, who is a registered nurse, acknowledging a clear understanding and acceptance of suggested procedures. This consent was recorded as part of the patient?s documented care plan. The patient agreed to follow instructions provided, with all questions adequately addressed. Patient was informed and verbally consented to the use of an ambient scribe for clinic note documentation during this visit. An additional 30 minutes was spent addressing the problem(s) noted at todays visit. This includes time spent before the visit reviewing the chart, time spent during the visit, and time spent after the visit on documentation reviewing laboratory results, diagnostic imaging, medications, performing a medically necessary evaluation, counseling on diagnoses, care coordination, ordering appropriate tests, ordering appropriate medications, review of tests performed by other providers, reporting test results with the patient, communication with other healthcare providers. [facility] Medical History Elevated transaminase level Left foot pain Hives of unknown origin Sleep apnea Anemia GERD (gastroesophageal reflux disease) Surgical History Hx of excision of mass H/O colonoscopy History of back surgery Hx of cholecystectomy Hx of hernia repair Family History Father Renal failure Mother Cancer of pancreas Social History Household Members: Spouse Housing: House Are you a primary lead care manager to a significant other at home: No Do you presently have visiting nurse or other home services: No Alcohol intake: current Alcohol intake frequency: does not drink Patient Tobacco Use Status: Never used Tobacco e-Cigarette/Vaping Use: Never Used Second Hand Smoke Exposure: No service: No Current occupational exposures/hazards: No Cognitive needs: No Hearing needs: No Vision needs: No Questionnaire Medicare Wellness Checkup [age] What gender do you identify with?: female During the past 4 weeks, how much have you been bothered by emotional problems such as feeling anxious, depressed, irritable, sad or downhearted, and blue?: not at all During the past 4 weeks, has your physical & emotional health limited your social activities with family, friends, neighbors, or groups?: not at all During the past 4 weeks, how much bodily pain have you generally had?: no pain During the past 4 weeks, was someone available to help you if you needed & wanted help?: yes, as much as I wanted During the past 4 weeks, what was the hardest physical activity you could do for at least 2 minutes?: heavy Can you get to places out of walking distance without help? (For eg., can you travel alone on buses, taxis or drive your car?): Yes Can you go shopping for groceries or clothes without someone's help?: Yes Can you prepare your own meals?: Yes Can you do your housework without help?: Yes Because of any health problems, do you need the help of another person with your personal care needs such as eating, bathing, dressing or getting around the house?: No Can you handle your own money without help?: Yes During the past 4 weeks, how would you rate your health in general?: very good During the past 4 weeks how have things been going for you?: pretty well Are you having difficulties driving your car?: no Do you always fasten your seat belt when you are in a car?: yes, usually During past 4 weeks, have you been bothered by the following: never: Trouble eating well?, Teeth or denture problems?, Problems using the telephone? and Tiredness or fatigue? and sometimes: Falling or dizzy when standing up and Sexual problems? Have you fallen 2 or more times in the past year?: No Are you afraid of falling?: No Are you a smoker?: no During the past 4 weeks, how many drinks of wine, beer, or other alcoholic beverages did you have?: 2-5 drinks per week Do you exercise for about 20 minutes 3 or more times a week?: yes, some of the time Have you been given information to help with the following?: no: Hazards in your house that might hurt you? and no: Keeping track of your medications? How often do you have trouble taking medicines the way you have been told to take them?: I always take medicine as prescribed How confident are you that you can control & manage most of your health problems?: very confident What is your race?: White Activity of Daily Living Bathing - sponge bath, tub bath or shower: receives no assistance (gets in/out by self, if usual bathing means Dressing - getting clothes from closets & drawers, including inner/outer garments & fasteners.: gets clothes & gets completely dressed without help Toileting - going to the 'toilet room' for urine/bowel elimination & cleaning self/arranging clothes: goes to toilet room, cleans self, arranges clothes without help Transfer: moves in & out of bed and chair without help (may use support object) Continence: controls urination/bowel movements completely by self Feeding: feeds self without help Total Score: 0 Information obtained from: patient Using telephone: independent Traveling: independent Shopping: independent Preparing meals: independent Housework: independent Taking medicine: independent Managing money: independent Physical Exam Vital Signs: Last Vital Signs Pulse 62 11/16/24 08:06 BP 132/70 11/16/24 08:06 Pulse Ox 96 11/16/24 08:06 Oxygen Delivery Method Room Air 11/16/24 08:06 BMI result Body Mass Index 29.6 Office Procedures EKG [id number], Complete Vision Screening Right Eye: 20/20 Left Eye: 20/25 Bilateral: 20/20 Color: Pass Overall Vision Screening Results: Pass [id number] - Vision Screening Assessment & Plan Assessment & Plan (1) Encounter for subsequent annual wellness visit (AWV) in Medicare patient: Onset Date: ~11/16/24 Code(s): Z00.00 - Encounter for general adult medical examination without abnormal findings (2) Erectile dysfunction: Code(s): N52.9 - Male erectile dysfunction, unspecified Qualifiers: Erectile dysfunction type: unspecified Qualified Code(s): N52.9 - Male erectile dysfunction, unspecified (3) BPH (benign prostatic hyperplasia): Code(s): N40.0 - Benign prostatic hyperplasia without lower urinary tract symptoms Qualifiers: Lower urinary tract symptom presence: symptoms absent Qualified Code(s): N40.0 - Benign prostatic hyperplasia without lower urinary tract symptoms (4) Hyperlipidemia: Code(s): E78.5 - Hyperlipidemia, unspecified Qualifiers: Hyperlipidemia type: mixed hyperlipidemia Qualified Code(s): E78.2 - Mixed hyperlipidemia (5) Elevated fasting blood sugar: Code(s): R73.01 - Impaired fasting glucose (6) Mild anemia: Code(s): D64.9 - Anemia, unspecified (7) Laboratory exam ordered as part of routine general medical examination: Code(s): Z00.00 - Encounter for general adult medical examination without abnormal findings (8) Influenza vaccination declined: Code(s): Z28.21 - Immunization not carried out because of patient refusal (9) GERD (gastroesophageal reflux disease): Code(s): K21.9 - Gastro-esophageal reflux disease without esophagitis Qualifiers: Esophagitis presence: without esophagitis Qualified Code(s): K21.9 - Gastro-esophageal reflux disease without esophagitis (10) Great toe pain: Code(s): M79.676 - Pain in unspecified toe(s) Qualifiers: Laterality: right Qualified Code(s): M79.674 - Pain in right toe(s) (11) Idiopathic urticaria: Code(s): L50.1 - Idiopathic urticaria (12) GENOVEVA on CPAP: Code(s): G47.33 - Obstructive sleep apnea (adult) (pediatric) (13) Dizziness: Code(s): R42 - Dizziness and giddiness (14) BPPV (benign paroxysmal positional vertigo): Code(s): H81.10 - Benign paroxysmal vertigo, unspecified ear Qualifiers: Laterality: bilateral Qualified Code(s): H81.13 - Benign paroxysmal vertigo, bilateral (15) ACP (advance care planning): Code(s): Z71.89 - Other specified counseling Plan . Orders: Orders Comprehensive [place]. Panel Fast Today D64.9 - Anemia, unspecified, E78.5 - Hyperlipidemia, unspecified, N40.0 - Benign prostatic hyperplasia without lower urinary tract symptoms, N52.9 - Male erectile dysfunction, unspecified, R73.01 - Impaired fasting glucose, Z00.00 - Encounter for general adult medical examination without abnormal findings Complete Blood Count no Diff Today D64.9 - Anemia, unspecified, E78.5 - Hyperlipidemia, unspecified, N40.0 - Benign prostatic hyperplasia without lower urinary tract symptoms, N52.9 - Male erectile dysfunction, unspecified, R73.01 - Impaired fasting glucose, Z00.00 - Encounter for general adult medical examination without abnormal findings Lipid Panel Today D64.9 - Anemia, unspecified, E78.5 - Hyperlipidemia, unspecified, N40.0 - Benign prostatic hyperplasia without lower urinary tract symptoms, N52.9 - Male erectile dysfunction, unspecified, R73.01 - Impaired fasting glucose, Z00.00 - Encounter for general adult medical examination without abnormal findings Prostate Specific Antigen Scr Today D64.9 - Anemia, unspecified, E78.5 - Hyperlipidemia, unspecified, N40.0 - Benign prostatic hyperplasia without lower urinary tract symptoms, N52.9 - Male erectile dysfunction, unspecified, R73.01 - Impaired fasting glucose, Z00.00 - Encounter for general adult medical examination without abnormal findings Vitamin D 25-OH Total Today D64.9 - Anemia, unspecified, E78.5 - Hyperlipidemia, unspecified, N40.0 - Benign prostatic hyperplasia without lower urinary tract symptoms, N52.9 - Male erectile dysfunction, unspecified, R73.01 - Impaired fasting glucose, Z00.00 - Encounter for general adult medical examination without abnormal findings Testosterone, Free/Total Today D64.9 - Anemia, unspecified, E78.5 - Hyperlipidemia, unspecified, N40.0 - Benign prostatic hyperplasia without lower urinary tract symptoms, N52.9 - Male erectile dysfunction, unspecified, R73.01 - Impaired fasting glucose, Z00.00 - Encounter for general adult medical examination without abnormal findings H pylori Ag Stool Today K21.9 - Gastro-esophageal reflux disease without esophagitis XR toe RT min 2V Today M79.676 - Pain in unspecified toe(s) PT Evaluation and Treatment Today H81.10 - Benign paroxysmal vertigo, unspecified ear Hemoglobin A1c Today D64.9 - Anemia, unspecified, E78.5 - Hyperlipidemia, unspecified, N40.0 - Benign prostatic hyperplasia without lower urinary tract symptoms, N52.9 - Male erectile dysfunction, unspecified, R73.01 - Impaired fasting glucose, Z00.00 - Encounter for general adult medical examination without abnormal findings Microalbumin, Random (w Creat) Today D64.9 - Anemia, unspecified, E78.5 - Hyperlipidemia, unspecified, N40.0 - Benign prostatic hyperplasia without lower urinary tract symptoms, N52.9 - Male erectile dysfunction, unspecified, R73.01 - Impaired fasting glucose, Z00.00 - Encounter for general adult medical examination without abnormal findings TSH reflex Free T4 Today D64.9 - Anemia, unspecified, E78.5 - Hyperlipidemia, unspecified, N40.0 - Benign prostatic hyperplasia without lower urinary tract symptoms, N52.9 - Male erectile dysfunction, unspecified, R73.01 - Impaired fasting glucose, Z00.00 - Encounter for general adult medical examination without abnormal findings Vitamin B12 and Folate Today D64.9 - Anemia, unspecified, E78.5 - Hyperlipidemia, unspecified, N40.0 - Benign prostatic hyperplasia without lower urinary tract symptoms, N52.9 - Male erectile dysfunction, unspecified, R73.01 - Impaired fasting glucose, Z00.00 - Encounter for general adult medical examination without abnormal findings Patient Instructions: Health screenings for men You should visit your health care provider regularly, even if you feel healthy. The purpose of these visits is to: Screen for medical issues Assess your risk for future medical problems Encourage a healthy lifestyle Update vaccinations and other preventive care services Help you get to know your provider in case of an illness Information Even if you feel fine, you should still see your provider for regular checkups. These visits can help you avoid problems in the future. For example, the only way to find out if you have high blood pressure is to have it checked regularly. High blood sugar and high cholesterol level also may not have any symptoms in the early stages. Simple blood tests can check for these conditions. There are specific times when you should see your provider or receive specific health screenings. The [place] Preventive Services Task Force publishes a list of recommended screenings. Below are screening guidelines for men ages 40 to 64. BLOOD PRESSURE SCREENING Have your blood pressure checked at least once every year. Watch for blood pressure screenings in your area. Ask your provider if you can stop in to have your blood pressure checked. Ask your provider if you need your blood pressure checked more often if: You have diabetes, heart disease, kidney problems, or are overweight or have certain other health conditions You have a first-degree relative with high blood pressure You are Black Your blood pressure top number is from 120 to 129 mm Hg, or the bottom number is from 70 to 79 mm Hg If the top number is 130 mm Hg or greater or the bottom number is 80 mm Hg or greater, this is considered stage 1 hypertension. Schedule an appointment with your provider to learn how you can lower your blood pressure. Effects of age on blood pressure CHOLESTEROL SCREENING Cholesterol screening should begin at age 35 for men with no known risk factors for coronary heart disease. Repeat cholesterol screening should take place: Every 5 years for men with normal cholesterol levels More often if changes occur in lifestyle (including weight gain and diet) More often if you have diabetes, heart disease, kidney problems, or certain other conditions COLORECTAL CANCER SCREENING If you are under age 45, talk to your provider about getting screened. You may need to be screened if you have a strong family history of colon cancer or polyps. Screening may also be considered if you have risk factors such as a history of inflammatory bowel disease or polyps. If you are age 45 to 75, you should be screened for colorectal cancer. There are several screening tests available: A stool-based fecal occult blood (gFOBT) or fecal immunochemical test (FIT) every year A stool sDNA test every 1 to 3 years Flexible sigmoidoscopy every 5 years or every 10 years with stool testing FIT done every year CT colonography (virtual colonoscopy) every 5 years Colonoscopy every 10 years You may need a colonoscopy more often if you have risk factors for colorectal cancer, such as: Ulcerative colitis A personal or family history of colorectal cancer A history of growths in your colon called adenomatous polyps DENTAL EXAM Go to the dentist once or twice every year for an exam and cleaning. Your dentist will evaluate if you have a need for more frequent visits. DIABETES SCREENING All adults who do not have risk factors for diabetes should be screened starting at age 35 and repeated every 3 years. If you have other risk factors for diabetes, such as a first degree relative with diabetes, overweight or obesity, high blood pressure, prediabetes, or a history of heart disease, you may be tested more often. If you are overweight and have other risk factors, such as high blood pressure and are planning to become , screening is recommended. EYE EXAM Have an eye exam every 2 to 4 years ages 40 to 54 and every 1 to 3 years ages 55 to 64. Your provider may recommend more frequent eye exams if you have vision problems or glaucoma risk. Have an eye exam that includes an examination of your retina (back of your eye) at least every year if you have diabetes. IMMUNIZATIONS Commonly needed vaccines include: Flu shot: get one every year COVID-19 vaccine: ask your provider what is best for you Tetanus-diphtheria and acellular pertussis (Tdap) vaccine: have as one of your tetanus-diphtheria vaccines if you did not receive it as an adolescent Tetanus-diphtheria: have a booster (or Tdap) every 10 years Varicella vaccine: receive 2 doses if you never had chickenpox or the varicella vaccine and were born in 1980 or after Hepatitis B vaccine: receive 2, 3, or 4 doses, depending on your exact circumstances, if you did not receive these as a child or adolescent, until age 59 Shingles (herpes zoster) vaccine: at or after age 50 Ask your provider if you should receive other immunizations, especially if you have certain medical conditions, such as diabetes or are at increased risk for some diseases such as pneumonia. INFECTIOUS DISEASE SCREENING Screening for hepatitis C: all adults ages 18 to 79 should get a one-time test for hepatitis C. Screening for human immunodeficiency virus (HIV): all people ages 15 to 65 should get a one-time test for HIV. Depending on your lifestyle and medical history, you may need to be screened for infections such as syphilis, chlamydia, and other infections. LUNG CANCER SCREENING You should have an annual screening for lung cancer with low-dose computed tomography (LDCT) if: You are age 50 to 80 years AND You have a 20 pack-year smoking history AND You currently smoke or have quit within the past 15 years OSTEOPOROSIS SCREENING If you are age 50 to 64 and have risk factors for osteoporosis, you should discuss screening with your provider. Risk factors can include long-term steroid use, low body weight, smoking, heavy alcohol use, having a fracture after age 50, or a family history of hip fracture or osteoporosis. Osteoporosis PHYSICAL EXAM All adults should visit their provider from time to time, even if they are healthy. The purpose of these visits is to: Screen for diseases Assess risk of future medical problems Encourage a healthy lifestyle Update vaccinations and other preventive care services Maintain a relationship with a provider in case of an illness Your height, weight, and body mass index (BMI) should be checked at every exam. During your exam, your provider may ask you about: Depression and anxiety Diet and exercise Alcohol and tobacco use Safety, such as use of seat belts and smoke detectors Your medicines and risk for interactions PROSTATE CANCER SCREENING If you're 55 through 69 years old, before having the test, talk to your provider about the pros and cons of having a PSA test. Ask about: Whether screening decreases your chance of dying from prostate cancer. Whether there is any harm from prostate cancer screening, such as side effects from testing or overtreatment of cancer when discovered. Whether you have a higher risk of prostate cancer than others. If you are age 55 or younger, screening is not generally recommended. You should talk with your provider about if you have a higher risk for prostate cancer. Risk factors include: Having a family history of prostate cancer (especially a brother or father) Being If you choose to be tested, the PSA blood test is repeated over time (yearly or less often), though the best frequency is not known. Prostate examinations are no longer routinely done on men with no symptoms. Prostate cancer SKIN EXAM Your provider may check your skin for signs of skin cancer, especially if you're at high risk. People at high risk include those who have had skin cancer before, have close relatives with skin cancer, or have a weakened immune system. TESTICULAR EXAM The US Preventive Services Task Force (USPSTF) now recommends against performing testicular self-exams. Doing testicular self-exams has been shown to have little to no benefit. Quality Reporting (2019) Adult ([facility] 138/04/02/68) Smoking risk assessment performed?: Yes Patient Tobacco Use Status: Never used Tobacco Depression screening performed: Yes Screen Results: Yes Negative screen Systolic BP not done?: No Diastolic BP not done?: No BMI screening not done: No Sexual Activity Screening ([facility] 153) Sexually active?: Yes Immunizations ([facility] 147, 117) Annual Influenza Vaccine: Yes Measles Antibody Test: No Mumps Antibody Test: No Rubella Antibody Test: No Varicella Antibody Test: No Anti Hepatitis A IgG Antigen test: No Anti Hepatitis B Virus Surface Ab test: No Fall Risk Screening ([facility] 139) Last assessed Fall Risk: 11/16/24 Fall risk assessment: No Falls in past year Dementia Assessment ([facility] 149) Cognitive assessment recorded: Yes Assessment of cognition with standardized tool: Yes (0/28 on 6 CIT) Ophthalmol:Cataracts Visual Acuity (133) Visual acuity exam performed: Yes (see results) Coding Level of Care Code Medicare Subsequent (G0439) Est Pt Level 4 (70436) Diagnoses Encounter for subsequent annual wellness visit (AWV) in Medicare patient Z00.00 Erectile dysfunction, unspecified erectile dysfunction type N52.9 Erectile dysfunction type: unspecified Benign prostatic hyperplasia without lower urinary tract symptoms N40.0 Lower urinary tract symptom presence: symptoms absent Mixed hyperlipidemia E78.2 Hyperlipidemia type: mixed hyperlipidemia Elevated fasting blood sugar R73.01 Mild anemia D64.9 Laboratory exam ordered as part of routine general medical examination Z00.00 Influenza vaccination declined Z28.21 Gastroesophageal reflux disease without esophagitis K21.9 Esophagitis presence: without esophagitis Pain of right great toe M79.674 Laterality: right Idiopathic urticaria L50.1 GENOVEVA on CPAP G47.33 Dizziness R42 Benign paroxysmal positional vertigo due to bilateral vestibular disorder H81.13 Laterality: bilateral ACP (advance care planning) Z71.89 CPT Codes Advance Care Planning - Time spent: 16-45 minutes ([id number]) EKG - CPT: 30096-Qkftcpqcywfidrays, Complete ([id number]) Vision Screening - Vision Screenin - Vision Screening ([id number]) Advance Care Planning Advance Care Planning discussion: Exists, not on file Date of discussion: 11/16/24 Who was present: self Forms completed: Health Care Proxy, Comfort care/DNR and Living will Time spent: 16-45 minutes Actual minutes spent: 16
[2024-11-16 08:06] VITALS: BP 132/70; PULSE 62; O2SAT 96; BMI 29.6
== END 2024-11-16 09:13 | disposition home or self-care (01) ==
LOC: HO.HMCFM 07:59
PROVIDERS: PCP Family Medicine; Visit Provider Nurse Practitioner Family
DX: Z00.00 Encounter for general adult medical examination without abnormal findings (principal); M79.674 Pain in right toe(s); R42 Dizziness and giddiness; N52.9 Male erectile dysfunction, unspecified; N40.0 Benign prostatic hyperplasia without lower urinary tract symptoms; E78.2 Mixed hyperlipidemia; R73.01 Impaired fasting glucose; D64.9 Anemia, unspecified; Z28.21 Immunization not carried out because of patient refusal; K21.9 Gastro-esophageal reflux disease without esophagitis; G47.33 Obstructive sleep apnea (adult) (pediatric); H81.13 Benign paroxysmal vertigo, bilateral

== ENCOUNTER 2024-11-18 14:21 | Outpatient (REF) | payer MEDICARE, SELFPAY ==
[2024-11-18 16:01] LABS: Microalbum/Creatinine Ratio Ur 4.1 ug/mg cr (<30)
== END 2024-11-18 14:22 | disposition home or self-care (01) ==
LOC: HO.LNP 14:21
PROVIDERS: Visit Provider Nurse Practitioner Family
DX: Z00.00 Encounter for general adult medical examination without abnormal findings (principal); N40.0 Benign prostatic hyperplasia without lower urinary tract symptoms; K21.9 Gastro-esophageal reflux disease without esophagitis; D64.9 Anemia, unspecified; N52.9 Male erectile dysfunction, unspecified; E78.5 Hyperlipidemia, unspecified; R73.01 Impaired fasting glucose
CPT/HCPCS: 82043; 82570; 87338

== ENCOUNTER 2024-11-22 09:59 | Outpatient (REF) | payer MEDICARE, SELFPAY ==
--- OUTSIDE RECORDS SUMMARY | 2023-09-28 03:30 | XMS_ITS ---
Author Organization [facility] Address [address] [place] [address] Care Team Providers Care Valve Tester Name Role Phone Erik Azul Primary Care Provider UnavailFranki Glez [phone] REASON FOR VISIT screening colon Problems Problem Type SNOMED Code ICD Code Onset Dates Problem Status W/U Status Risk Notes Problem Diverticular disease of colon (129672988) Diverticulosis of large intestine without perforation or abscess without bleeding (K57.30) Active confirmed Encounters Encounter Location Date Provider Diagnosis [facility] [place] [address] [place] [phone] 09/28/2023 Franki Montes Colon cancer scree domenico [...] * AUGUST FLORES MDOB:1955 (69 yo M)Acc No.[id number]:09/28/2023 COLON WITH MAC Patient: AUGUST COSTA Provider: Beka Montes MD :1955 A ge:68 Y S ex:Male Date:09/28/2023 Address: [address], [place] Pcp:Erik Azul Subjective: * Chief Complaints: * 1 . Screening colon. * Medical History: Objective: * Vitals: Assessment: * Assessment: 1. C olon cancer screening - Z12.11 (Primary) 2 . C olon polyps - K63.5? 3. D iverticulosis of large intestine without perforation or abscess without bleeding - K57.30 4 . O ther hemorrhoids - K64.8 Plan: * Treatment: * Procedure Codes: 4 5380 COLONOSCOPY AND BIOPSY, Modifiers: PT , 0529F INTRVL 3+YRS PTS CLNSCP DOCD, 0528F RCMND FLW-UP 10 YRS DOCD, Modifiers: 1P * * The named appointment provid er may or may not be the originator of this progress note, and it is not deemed complete until electronically signed by the appointment provider. Sign off status: Pending * Provider: Beka Montes MD Date: 0 09/28/2023 Generated for Nicholas loza/Karly/Anahismitting on: 1 11:26 AM EDT
--- NOTE | ~2024-11-22 | XR_ITS ---
EXAMINATION: XR TOES, RIGHT CLINICAL INFORMATION: M79.676 - Pain in unspecified toe(s) ; first digit pain. Growth on right toe COMPARISON: None available. TECHNIQUE: 3 views of the right great toe were obtained. FINDINGS: No fracture, dislocation, or suspicious bone lesion. There is normal alignment. There is very mild degenerative arthritis in the first MTP joint. Joint spaces otherwise preserved. No soft tissue abnormalities. XR/XR toe RT min 2V IMPRESSION: 1. No acute bony or soft tissue abnormality. 2. Very mild degenerative arthritis in the first MTP joint. Electronically signed by: Delfino Ware MD 11/22/2024 10:52 AM EDT
--- OUTSIDE RECORDS SUMMARY | 2024-11-22 11:26 | XMS_ITS | Patient Health Record ---
Author Organization [facility] Address [address] [place] [address] Care Team Providers Care Customer Service And Sales Consultant Name Role Phone Erik Azul Primary Care Provider UnavailFranki Glez Unavailable [phone] Allergies Allergen (clinical drug ingredient) Drug/Non Drug Allergy documented on EMR Reaction Allergy Type Onset Date Status aspirin Aspirin Unknown Drug Allergy Active Reason For Referral No Information Immunizations Vaccine Route Administration Date Status Comme nts Influenza Unknown 10/11/2019 Administered Influenza Unknown 12/02/2022 Administered Social History Alcohol Screen Question Answer Notes Did you [...] Never (0 point) Points 2 Interpretation Negative Section Notes: Nonsmoker; occasional alcoho l Nonsmoker; occasional alcoho l Nonsmoker; occasional alcoho l Problems Problem Type SNOMED Code ICD Code Onset Dates Problem Status W/U Status Risk Notes Problem Screening for malignant neoplasm of colon (432426244) Encounter for screening for malignant neoplasm of colon (Z12.11) Active confirmed Problem Pre-procedure evaluation check (799605803) Encounter for other preprocedural examination (Z01.818) Active confirmed Problem Diverticular disease of colon (813584920) Diverticulosis of large intestine without perforation or abscess without bleeding (K57.30) Active confirmed Plan Of Treatment Future Test Test Name Order Date COLONOSCOPY 12/29/2012 COLONOSCOPY 05/20/2023 Insurance Providers Payer Name Payer Address Payer Phone Subscriber Number Group Number Insured Name Patient Relationship to Insured Coverage Start Date Coverage End Date MEDICARE OF [place] [address] [place] [address] [phone] [id number] AUGUST FLORES Self - patient is the insured [employer] ATT[employer] CLAIMS [address] [place] [phone] [id number] AUGUST FLORES Self - patient is the insured Medical (General) History Medical History History ICD Code Colonoscopy 03-18-2007--only a hyperplastic polyp, and diverticulosis and internal hemorrhoids Denies MN,DM,CVA,Lung disease,renal dise ase Hx of intermittent hives Sleep apnea/ on cpap machine Negative colonoscopy in 01/2013 Urticaria Surgical History Surgery Date(Month/Year) Hernia surgery Back surgery L5 S1 Upper arm benign tumor removed left CCY
== END 2024-11-22 10:00 | disposition home or self-care (01) ==
LOC: HO.XRAY 09:59
PROVIDERS: PCP Family Medicine; Visit Provider Nurse Practitioner Family
DX: M79.674 Pain in right toe(s) (principal)
CPT/HCPCS: 73660

== ENCOUNTER → 2024-11-22 10:13 | Outpatient (BNV) | payer MEDICARE, SELFPAY | PROVIDERS: PCP Family Medicine; Visit Provider Radiology Diagnostic Radiology | DX: M19.071 Primary osteoarthritis, right ankle and foot (principal) | CPT/HCPCS: 73660 ==

== ENCOUNTER 2024-12-28 08:22 | Outpatient (AMB) | payer MEDICARE, SELFPAY ==
--- OUTSIDE RECORDS SUMMARY | 2023-09-28 02:30 | XMS_ITS ---
Author Organization [facility] Address [address] [place] [address] Care Team Providers Care Endoscope Technician Name Role Phone Erik Azul Primary Care Provider UnavailFranki Glez [phone] REASON FOR VISIT screening colon Problems Problem Type SNOMED Code ICD Code Onset Dates Problem Status W/U Status Risk Notes Problem Diverticular disease of colon (740984144) Diverticulosis of large intestine without perforation or abscess without bleeding (K57.30) Active confirmed Encounters Encounter Location Date Provider Diagnosis [facility] [place] [address] [place] [phone] 09/28/2023 Franki Montes Colon cancer scree domenico [...] * AUGUST FLORES MDOB:1955 (69 yo M)Acc No.[id number]:09/28/2023 COLON WITH MAC Patient: AUGUST COSTA Provider: Beka Montes MD :1955 A ge:68 Y S ex:Male Date:09/28/2023 Address: [address], [place], [place] Pcp:Erik Azul Subjective: * Chief Complaints: * [...] Modifiers: PT 0529F INTRVL 3+YRS PTS CLNSCP [id number] RCMND FLW-UP 10 YRS DOCD, Modifiers: 1P Billing Information: * Procedure Codes: 64198 COLONOSCOPY AND BIOPSY. Modifiers: PT 0529F INTRVL [...] 0 09/28/2023 Generated for Nicholas loza/Karly/Greer on: 02/28/2024 04:02 PM EST
--- NOTE | 2024-12-28 09:31 | MHC.OFFWIV ---
Intake Vital Signs 12/28/24 09:37 Height 5 ft 11 in Weight 210 lb 4 oz BMI 29.3 BP 150/78 H Blood Pressure Location Lt brachial Position Sitting Respiration 14 Pulse 78 Pulse Source Pulse Oximeter Temp 98.4 F Temp Source Oral Pulse Oximetry (%) 98 Oxygen Delivery Method Room Air Intake Visit Reasons: Heavy chest congestion Intake Note: Patient c/o chest congestion, tickle on the throat x 9 days Patient Tobacco Use Status: Never used Tobacco Allergies aspirin (ASPIRIN) Allergy (Severe, Verified 12/28/24 09:36) RASH SWELLING, hives, swelling Do you need a note to return to daycare/school/sports/work: No PFSH Medical History Elevated transaminase level Left foot pain Hives of unknown origin Sleep apnea Anemia GERD (gastroesophageal reflux disease) Surgical History Hx of excision of mass H/O colonoscopy History of back surgery Hx of cholecystectomy Hx of hernia repair Family History Father Renal failure Mother Cancer of pancreas Social History Household Members: Spouse Housing: House Are you a primary wound care technician to a significant other at home: No Do you presently have visiting nurse or other home services: No Alcohol intake: current Alcohol intake frequency: does not drink Patient Tobacco Use Status: Never used Tobacco e-Cigarette/Vaping Use: Never Used Second Hand Smoke Exposure: No service: No Current occupational exposures/hazards: No Cognitive needs: No Hearing needs: No Vision needs: No Coding
[2024-12-28 09:37] VITALS: BP 150/78; PULSE 78; RESP 14; TEMP 36.9; O2SAT 98; BMI 29.3
--- NOTE | 2024-12-28 09:54 | A.OFFPC_ITS ---
Vital Signs 12/28/24 09:37 Height 5 ft 11 in Weight 210 lb 4 oz BMI 29.3 BP 150/78 H Blood Pressure Location Lt brachial Position Sitting Respiration 14 Pulse 78 Pulse Source Pulse Oximeter Temp 98.4 F Temp Source Oral Pulse Oximetry (%) 98 Oxygen Delivery Method Room Air Intake Visit Reasons: Heavy chest congestion Allergies aspirin (ASPIRIN) Allergy (Severe, Verified 12/28/24 09:54) RASH SWELLING, hives, swelling Medication List - Last Reconciled 12/28/24 by HARRY Kumar- cetirizine (Zyrtec) 5 mg PO DAILY PRN doxycycline hyclate 100 mg PO BID 10 days loratadine (Claritin) 10 mg PO DAILY Tobacco use date assessed: 09/03/23 Dental Screening Dental Screen Date: 10/22/22 HPI HPI Comments History of Present Illness Details History of Present Illness The patient is a 69-year-old male presenting with chest congestion. Pneumonia: - The patient reports feeling unwell wit h chest congestion for the past 8 to 9 days, which started after returning from a cruise in [place]. - Associated symptoms include chills and a scratchy throat. - He denies having a fever, runny nose, or ear pain. - He has a history of developing pneumon ia or bronchitis after traveling, which has occurred a minimum of four times. - The patient attempted self-treatment w ith zinc tablets without success. Chronic Urticaria: - The patient has been dealing with hive s for the past four years. - He reports that the hives become exace rbated when he is very tired and recently flared up after a red-eye flight. - He manages his symptoms with Claritin, which he was taking every other day. Hypervitaminosis D: - The patient expressed concern after se eing his vitamin D level was reported as toxic on the patient portal. - His vitamin D level was 107, which is high but not considered toxic. - The patient stopped taking vitamin D s upplements but notes his multivitamin contains 2000 IU. Insomnia: - The patient reports taking half a tabl et of ZzzQuil for sleep. - He goes to bed at 9 p.m. but wakes up at 2 a.m. and is unable to fall back asleep. - He has a sleep study scheduled for the following day. Hypogonadism: - Recent lab results showed a total test osterone level of 283 and a free testosterone level of 33, both on the low end of the normal range. - The patient reports a lifelong feeling of not being fit despite regular exercise. - He has an appointment scheduled with a specialist to discuss this further. Past Medical History - History of recurrent pneumonia and bro nchitis, particularly after traveling. - Chronic urticaria for four years. - Recently resolved infected toe, treate d with antibiotics. - Photosensitivity reaction to antibioti cs. - History of high cholesterol. - History of elevated liver enzymes. - History of low white blood cell count. Review of Systems - Constitutional: Reports chills and fee ling unwell. - HEENT: Reports a scratchy throat. Henrique es runny nose or ear pain. - Respiratory: Reports chest congestion and cough. - Integumentary: Reports chronic hives t hat flare with fatigue. - Neurological/Sleep: Reports insomnia w ith extractor puller awakenings despite feeling exhausted. Physical Exam General: Well developed, well nourished, in no acute distress. Appears stated age. Head: Normocephalic, atraumatic. Ears: TM intact bilat, mild congestion bilat Nose: Nares patent, sinus nonTTP Eyes: Pupils are equal, round and reactive to light and accommodation. Conjunctivae are clear. Lungs: coarse rhonci RLL/RML, cough noted w/o distress during deep breathing, otherwise clear Heart: Regular rate and rhythm. No murmurs, click, rubs or gallops are noted. Results - Labs: Recent labs reviewed showed a vi tamin D level of 107, total testosterone of 283, and free testosterone of 33. - Prior lab results sent via [facility] indicated high cholesterol, elevated liver enzymes, and low white blood cells. Medical Decision Making The patient is a 69-year-old male who presents with symptoms of a lower respiratory infection, including chest congestion, cough, and chills, for 8-9 days following travel. Given his significant history of post-travel pneumonia and bronchitis, suspicion for a bacterial process is high. Physical examination revealed localized adventitious sounds on lung auscultation, strengthening the clinical diagnosis of pneumonia. To confirm the diagnosis and assess the extent of the infection, a chest X-ray was recommended. Additionally, a urine antigen test for legionella was ordered. Empiric treatment with azithromycin was initiated based on the high clinical suspicion. The patient's concerns regarding his lab results were addressed; his Vitamin D level of 107 is high but not toxic, and he was advised to discontinue supplementation. His borderline low testosterone was acknowledged, and his plan to consult with a specialist was supported. Management for his insomnia is deferred pending the results of his upcoming sleep study. Plan 1. Pneumonia , suspected - Prescribed azithromycin, a 5-day cours e (two tablets on day 1, then one tablet daily). - Ordered a chest X-ray to confirm the d iagnosis and check for multilobe involvement, to be done at the [facility] facility. - Ordered a urine sample to test for com mon community-acquired pneumonia pathogens. - Will follow up with results via the [employer] portal. 2. Hypervitaminosis D - Informed the patient that his vitamin D level of 107 is high but not toxic. - Advised him to not take any additional vitamin D supplements to avoid potential risks such as kidney stones. 3. Chronic Urticaria - Reassured the patient that the prescri bed antibiotic, azithromycin, is not related to aspirin and is not expected to exacerbate his hives. 4. Insomnia - The patient has a sleep study schedule d for tomorrow. - Will await the results of the sleep st udy before making further recommendations. 5. Hypogonadism - Acknowledged the patient's borderline low testosterone levels. - Supported the patient's plan to see a specialist for further evaluation and management. Patient Instructions - Take the prescribed antibiotic, azithr omycin, as directed: two tablets today, and then one tablet each day until the pack is finished. - Go to the outpatient department at [facility] for a walk-in chest X-ray. - Provide a urine sample at the lab. You can do this at [facility] tomorrow when you go for your sleep study appointment. - Stop taking any extra vitamin D supple ments. Your level is high, and more is not needed. - The results of your X-ray and urine te st will be sent to you through the patient portal. - Follow up with the specialist for your appointment to discuss your testosterone levels. Consent The rationale for conducting a chest X-ray and a urine test was explained to the patient. The chest X-ray is to confirm the diagnosis of pneumonia and assess for multilobar involvement, and the urine test is to check for a specific type of community-acquired pneumonia. The patient provided verbal agreement for the proposed plan, including the antibiotic prescription, chest X-ray, and urine test. Patient was informed and verbally consented to the use of an ambient scribe for clinic note documentation during this visit. Total time spent caring for the patient today was 30 minutes. This includes time spent before the visit reviewing the chart, time spent during the visit, and time spent after the visit on documentation, reviewing laboratory results, diagnostic imaging, medications, performing a medically necessary evaluation, counseling on diagnoses, care coordination, ordering appropriate tests, ordering appropriate medications, review of tests performed by other providers, reporting test results with the patient, communication with other healthcare providers. [facility] Medical History Elevated transaminase level Left foot pain Hives of unknown origin Sleep apnea Anemia GERD (gastroesophageal reflux disease) Surgical History Hx of excision of mass H/O colonoscopy History of back surgery Hx of cholecystectomy Hx of hernia repair Family History Father Renal failure Mother Cancer of pancreas Social History Household Members: Spouse Housing: House Are you a primary post acute care nurse practitioner to a significant other at home: No Do you presently have visiting nurse or other home services: No Alcohol intake: current Alcohol intake frequency: does not drink Patient Tobacco Use Status: Never used Tobacco e-Cigarette/Vaping Use: Never Used Second Hand Smoke Exposure: No service: No Current occupational exposures/hazards: No Cognitive needs: No Hearing needs: No Vision needs: No Questionnaire TORY-7 AMB Questionnaire TORY-7 Date TORY - 7 assessed: 10/06/22 Source: Developed by Drs. Franki Galvez, Juliann Hoover, Jadon Mathis and colleagues, with an educational christy from [employer]. Physical exam (Primary Care) Vital Signs: Last Vital Signs Temp 98.4 F 12/28/24 09:37 Pulse 78 12/28/24 09:37 Resp 14 12/28/24 09:37 BP 150/78 H 12/28/24 09:37 Pulse Ox 98 11/19/25 09:37 Oxygen Delivery Method Room Air 12/28/24 09:37 BMI result Body Mass Index 29.3 Tobacco/Smoking Status: Tobacco use Status Tobacco use date assessed 09/03/23 01/27/24 08:40 Patient Tobacco Use Status Never used Tobacco 11/16/24 08:02 e-Cigarette/Vaping Use Never Used 01/27/24 08:40 Coding Level of Care Code Est Pt Level 4 (20618) Complex EM visit Add On G2211 Diagnoses Cough R05.9 Hypervitaminosis D E67.3 Low testosterone in male R79.89 Assessment & Plan Assessment & Plan (1) Cough: Code(s): R05.9 - Cough, unspecified Category: Medical (2) Hypervitaminosis D: Code(s): E67.3 - Hypervitaminosis D Category: Medical (3) Low testosterone in male: Code(s): R79.89 - Other specified abnormal findings of blood chemistry Category: Medical Plan . Orders: Orders Legionella Ag Urine Today R05.9 - Cough, unspecified XR chest 2V Today R05.9 - Cough, unspecified Medications: New azithromycin For 250 mg dose pack: take 500 mg today (day 1), then 250 mg for 4 days (days 2-5) PO 6 tabs 0RF 5 days Discontinued doxycycline hyclate Discontinued Reason: Patient Completed Course 100 mg PO BID 10 days 20 caps 0RF
--- OUTSIDE RECORDS SUMMARY | 2024-12-28 16:02 | XMS_ITS | Patient Health Record ---
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 Yes How often did you have a drink containing alcohol in the past year? Monthly or less (1 point) How many drinks did you have on a typical day when you were drinking in the past year? 3 or 4 drinks (1 point) How often did you have 6 or more drinks on one occasion in the past year? Never (0 point) Points 2 Interpretation Negative Additional Details Category Social Info Options Details Miscellaneous: Marital status: Occupation: Retired Section Notes: Nonsmoker; occasional alcoho l Nonsmoker; occasional alcoho l Nonsmoker; occasional alcoho l Problems Problem Type SNOMED Code ICD Code Onset Dates Problem Status W/U Status Risk Notes Problem Screening for malignant neoplasm of colon (175356474) Encounter for screening for malignant neoplasm of colon (Z12.11) Active confirmed Problem Pre-procedure evaluation check (770902481) Encounter for other preprocedural examination (Z01.818) Active confirmed Problem Diverticular disease of colon (921865221) Diverticulosis of large intestine without perforation or abscess without bleeding (K57.30) Active confirmed Plan Of Treatment Future Test Test Name Order Date COLONOSCOPY 12/29/2012 COLONOSCOPY 05/20/2023 Insurance Providers Payer Name Payer Address Payer Phone Subscriber Number Group Number Insured Name Patient Relationship to Insured Coverage Start Date Coverage End Date MEDICARE OF [place] [address] [place] [address] [phone] [id number] AUGUST FLORES Self - patient is the insured MED[employer] ATT[employer] CLAIMS [address] [place] [address] [id number] AUGUTS FLORES Self - patient is the insured Medical (General) History Medical History History ICD Code Colonoscopy 03-18-2007--only a hyperplastic polyp, and diverticulosis and internal hemorrhoids Denies [place],DM,CVA,Lung disease,renal dise ase Hx of intermittent hives Sleep apnea/ on cpap machine Negative colonoscopy in 01/2013 [facility] Surgical History Surgery Date(Month/Year) Hernia surgery Back surgery L5 S1 Upper arm benign tumor removed left CCY
== END 2024-12-28 10:09 | disposition home or self-care (01) ==
LOC: HO.HMCFM 08:22
PROVIDERS: PCP Family Medicine; Visit Provider Nurse Practitioner Family
DX: R05.9 Cough, unspecified (principal); E67.3 Hypervitaminosis D; R79.89 Other specified abnormal findings of blood chemistry

== ENCOUNTER → 2024-12-28 08:22 | Outpatient (BNVA) | payer MEDICARE, SELFPAY | PROVIDERS: PCP Family Medicine; Visit Provider Nurse Practitioner Family | DX: R05.9 Cough, unspecified (principal); E67.3 Hypervitaminosis D; R79.89 Other specified abnormal findings of blood chemistry | CPT/HCPCS: 99212 ==

== ENCOUNTER → 2024-12-29 09:36 | Outpatient (REF) | payer MEDICARE, SELFPAY ==
--- OUTSIDE RECORDS SUMMARY | 2023-09-28 02:30 | XMS_ITS ---
Author Organization [facility] Address [address] [place] [address] Care Team Providers Care Data Management Engineer Name Role Phone Erik Azul Primary Care Provider UnavailFranki Glez [phone] REASON FOR VISIT screening colon Problems Problem Type SNOMED Code ICD Code Onset Dates Problem Status W/U Status Risk Notes Problem Diverticular disease of colon (803592031) Diverticulosis of large intestine without perforation or abscess without bleeding (K57.30) Active confirmed Encounters Encounter Location Date Provider [place] [facility] [place] [address] [place] [phone] 09/28/2023 Franki Montes Colon cancer scree domenico [...] * AUGUST FLORES MDOB:1955 (69 yo M)Acc No.[id number]:09/28/2023 COLON WITH MAC Patient: AUGUST COSTA Provider: Beka Montes MD :1955 A ge:68 Y S ex:Male Date:09/28/2023 Address: [address], [place], [place] Pcp:Erik Azul Subjective: * Chief Complaints: * [...] Modifiers: PT 0529F INTRVL 3+YRS PTS CLNSCP [id number] RCMND FLW-UP 10 YRS DOCD, Modifiers: 1P Billing Information: * Procedure Codes: 47768 COLONOSCOPY AND BIOPSY. Modifiers: PT 0529F INTRVL [...] 0 09/28/2023 Generated for Nicholas loza/Karly/Greer on: 02/29/2024 01:37 PM EST
--- NOTE | ~2024-12-29 | XR_ITS ---
EXAMINATION: XR CHEST CLINICAL INFORMATION: R05.9 - Cough, unspecified COMPARISON: January 28, 2024 TECHNIQUE: PA and lateral views FINDINGS: Pulmonary reticular pattern. No consolidation, pleural fissure or pneumothorax. No gross hyperinflation. Cardiomediastinal silhouette size is normal. Multilevel thoracolumbar spondylosis. Vascular clips right upper quadrant abdomen likely laparoscopic cholecystectomy. XR/XR chest 2V IMPRESSION: No acute airspace disease. Consider chronic interstitial lung disease.. Electronically signed by: Thor Ivey MD 12/29/2024 10:40 AM MARINA
--- OUTSIDE RECORDS SUMMARY | 2024-12-29 13:37 | XMS_ITS | Patient Health Record ---
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 Role Phone Erik Azul Primary Care Provider UnavailFranki Glez Unavailable [phone] Allergies Allergen (clinical drug ingredient) Drug/Non Drug [...] Problem Screening for malignant neoplasm of colon (406543526) Encounter for screening for malignant neoplasm of colon (Z12.11) Active confirmed Problem Pre-procedure evaluation check (991663432) Encounter for other preprocedural examination (Z01.818) Active confirmed Problem Diverticular disease of colon (462293914) Diverticulosis of large intestine without perforation or abscess without bleeding (K57.30) Active confirmed Plan Of Treatment Future Test Test Name Order Date COLONOSCOPY 12/29/2012 COLONOSCOPY 05/20/2023 Insurance Providers Payer Name Payer Address Payer Phone Subscriber Number Group Number Insured Name Patient Relationship to Insured Coverage Start Date Coverage End Date [place]ARE OF [place] [address] [place] [address] [id number] AUGUST FLORES Self - patient is the insured MEDEX ATTN CLAIMS [address] [place] [address] [id number] AUGUST FLORES Self - patient is the insured Medical (General) History Medical History History ICD Code Colonoscopy 03-18-2007--only a hyperplastic polyp, and diverticulosis and internal hemorrhoids Denies [place],DM,CVA,Lung disease,renal dise ase Hx of intermittent hives Sleep apnea/ on cpap machine Negative colonoscopy in 01/2013 [facility] Surgical History Surgery Date(Month/Year) Hernia surgery Back surgery L5 S1 Upper arm benign tumor removed left CCY
== END ==
LOC: HO.SL 09:36
PROVIDERS: PCP Family Medicine; Visit Provider Nurse Practitioner Family
DX: G47.33 Obstructive sleep apnea (adult) (pediatric) (principal); R05.9 Cough, unspecified
CPT/HCPCS: 71046; 87449

== ENCOUNTER → 2024-12-29 09:52 | Outpatient (BNV) | payer MEDICARE, SELFPAY | PROVIDERS: PCP Family Medicine; Visit Provider Radiology Diagnostic Radiology | DX: R05.9 Cough, unspecified (principal) | CPT/HCPCS: 71046 ==

== ENCOUNTER → 2025-01-03 10:43 | Outpatient (BNV) | payer MEDICARE, SELFPAY | PROVIDERS: PCP Family Medicine; Visit Provider Psychiatry & Neurology Neurology | DX: G47.33 Obstructive sleep apnea (adult) (pediatric) (principal) | CPT/HCPCS: 95806 ==

== ENCOUNTER 2025-02-08 08:13 | Outpatient (AMB) | payer MEDICARE, SELFPAY ==
--- OUTSIDE RECORDS SUMMARY | 2023-09-28 02:30 | XMS_ITS ---
Author Organization [facility] Address [address] [place] [address] Care Team Providers Care Lime Filter Operator Name Role Phone Erik Azul Primary Care Provider UnavailFranki Glez [phone] REASON FOR VISIT screening colon Problems Problem Type SNOMED Code ICD Code Onset Dates Problem Status W/U Status Risk Notes Problem Diverticular disease of colon (308393309) Diverticulosis of large intestine without perforation or abscess without bleeding (K57.30) Active confirmed Encounters Encounter Location Date Provider Diagnosis [facility] [place] [address] [place] [phone] 09/28/2023 Franki Montes Colon cancer scree domenico Z12.11 ; Colon polyps K63.5 ; Diverticulosis of large intestine without perforation or abscess without bleeding K57.30 and Other hemorrhoids K64.8 Assessments Encounter Date Diagnosis (ICD Code) Assessment Notes Treatment Notes Treatment Clinical Notes Section Notes 09/28/2023 Colon cancer screening (ICD-10 - Z12.11) 09/28/2023 Colon polyps (ICD-10 - K63.5) 09/28/2023 Diverticulosis of large intestine without perforation or abscess without bleeding (ICD-10 - K57.30) 09/28/2023 Other hemorrhoids (ICD-10 - K64.8) Plan Of Treatment No Information Progress Notes * AUGUST FLORES MDOB:1955 (69 yo M)Acc No.[id number]:09/28/2023 COLON WITH MAC Patient: AUGUST COSTA Provider: Beka Montes MD :1955 A ge:68 Y S ex:Male Date:09/28/2023 Address: [address] [place], [place] Pcp:Erik Azul Subjective: * Chief Complaints: * S creening colon Assessment: * Assessment: 1. C olon cancer screening - Z12.11 (Primary) 2 . C olon polyps - K63.5? 3. D iverticulosis of large intestine without perforation or abscess without bleeding - K57.30 4 . O ther hemorrhoids - K64.8 Plan: * Procedure Codes: 4 5380 COLONOSCOPY AND BIOPSY, Modifiers: PT 0529F INTRVL 3+YRS PTS CLNSCP [id number] RCMND FLW-UP 10 YRS DOCD, Modifiers: 1P Billing Information: * Procedure Codes: 87477 COLONOSCOPY AND BIOPSY. Modifiers: PT 0529F INTRVL 3+YRS PTS CLNSCP DOCD. 0528F RCMND FLW-UP 10 YRS DOCD. Modifiers: 1P * The named appointment provid er may or may not be the originator of this progress note, and it is not deemed complete until electronically signed by the appointment provider. Sign off status: Pending * Provider: Beka Montes MD Date: 0 09/28/2023 Generated for Nicholas loza/Karly/Greer on: 1 08:19 AM EST
--- OUTSIDE RECORDS SUMMARY | 2025-02-08 08:20 | XMS_ITS | Patient Health Record ---
Author Organization [facility] Address [address] [place] [address] Care Team Providers Care Grab Driver Name Role Phone Erik Azul Primary Care Provider UnavailFranki Glez Unavailable [phone] Allergies Allergen (clinical drug ingredient) Drug/Non Drug [...] Problem Screening for malignant neoplasm of colon (989498592) Encounter for screening for malignant neoplasm of colon (Z12.11) Active confirmed Problem Pre-procedure evaluation check (646673895) Encounter for other preprocedural examination (Z01.818) Active confirmed Problem Diverticular disease of colon (143585370) Diverticulosis of large intestine without perforation or abscess without bleeding (K57.30) Active confirmed Plan Of Treatment Future Test Test Name Order Date COLONOSCOPY 12/29/2012 COLONOSCOPY 05/20/2023 Insurance Providers Payer Name Payer Address Payer Phone Subscriber Number Group Number Insured Name Patient Relationship to Insured Coverage Start Date Coverage End Date [place] [address] [place] [address] [id number] AUGUST FLORES Self - patient is the insured MEDEX ATTN CLAIMS [address] [place] [address] [phone] [id number] AUGUST FLORES Self - patient is the insured Medical (General) History Medical History History ICD Code Colonoscopy 03-18-2007--only a hyperplastic polyp, and diverticulosis and internal hemorrhoids Denies [place],DM,CVA,Lung disease,renal dise ase Hx of intermittent hives Sleep apnea/ on cpap machine Negative colonoscopy in 01/2013 [facility] Surgical History Surgery Date(Month/Year) Hernia surgery Back surgery L5 S1 Upper arm benign tumor removed left CCY
[2025-02-08 08:24] VITALS: BP 126/66; PULSE 85; RESP 14; O2SAT 98; BMI 29.9
--- NOTE | 2025-02-08 08:24 | A.OFFPC_ITS ---
Vital Signs 02/08/25 08:24 Height 5 ft 11 in Weight 214 lb 4 oz BMI 29.9 BP 126/66 Blood Pressure Location Lt brachial Position Sitting Respiration 14 Pulse 85 Pulse Source Pulse Oximeter Pulse Oximetry (%) 98 Oxygen Delivery Method Room Air Intake Visit Reasons: [address] Geoff CRUZ Dizziness Intake Note: Follow up Telephone Mechanic Required: No Allergies aspirin (ASPIRIN) Allergy (Severe, Verified 02/08/25 08:26) RASH SWELLING, hives, swelling azithromycin Allergy (Severe, Verified 02/08/25 08:55) Hives Medication List - Last Reconciled 02/08/25 by Erik Azul MD [beet root PO] cetirizine (Zyrtec) 5 mg PO DAILY PRN CPAP (CPAP Machine/Device) Auto-titrating CPAP With Mask, Tubing and Heated Humidifier (APAP) Pressure Range: 5-20 cm H2O, As directed, 999 days creatine monohydrate PO loratadine (Claritin) 10 mg PO DAILY multivitamin 1 tab PO DAILY [vitamin b3 500 PO] [z quil ultra PO] Tobacco use date assessed: 02/08/25 Dental Screening Dental Screen Date: 10/22/22 HPI [address] Geoff CRUZ Dizziness HPI Details 69 y/o male presents to f/u chronic cond itions. Hx of elevated fasting glucose. A1c today 5.4%. Pt notes GERD has improved. Last labs in November show elevated LDL. Notes ongoing difficulty sleeping. Uses a CPAP machine. HPI Comments History of Present Illness Details Documentation assistance for Erik Azul MD, was provided by Jeff Williamson,? Weatherization Director on 02/08/2025 at 9:10 AM EST. Carpenter, Dr. Azul, have read, observed, and verified documentation. ?? PFS Medical History Elevated transaminase level Left foot pain Hives of unknown origin Sleep apnea Anemia GERD (gastroesophageal reflux disease) Surgical History Hx of excision of mass H/O colonoscopy History of back surgery Hx of cholecystectomy Hx of hernia repair Family History Father Renal failure Mother Cancer of pancreas Social History Household Members: Spouse Housing: House Are you a primary career placement specialist to a significant other at home: No Do you presently have visiting nurse or other home services: No Alcohol intake: current Alcohol intake frequency: does not drink Patient Tobacco Use Status: Never used Tobacco e-Cigarette/Vaping Use: Never Used Second Hand Smoke Exposure: No service: No Current occupational exposures/hazards: No Cognitive needs: No Hearing needs: No Vision needs: No Questionnaire PHQ-9 Over the last 2 weeks, how often have you been bothered by any of the following problems? 1. Little interest or pleasure in doing things: not at all 2. Feeling down, depressed, or hopeless: not at all 3. Trouble falling or staying asleep, or sleeping too much: nearly every day 4. Feeling tired or having little energy: not at all 5. Poor appetite or overeating: not at all 6. Feeling bad about yourself - or that you are a failure or have let yourself or your family down: not at all 7. Trouble concentrating on things, such as reading the newspaper or watching television: not at all 8. Moving or speaking so slowly that other people could have noticed. Or the opposite - being so fidgety or restless that you have been moving around a lot more than usual: not at all 9. Thoughts that you would be better off or of hurting yourself in some way: not at all Total score: 3 Source: Developed by Drs. Franki Galvez, Juliann Hoover, Jadon Mathis and colleagues, with an educational christy from [employer]. Thrive Questionnaire Date Thrive assessed: 02/05/25 I am a: Patient What is your living situation today?: I have a steady place to live Within the past 12 months, did the food you bought not last and you didn't have the money to get more?: Never true Within the past 12 months, did you worry whether your food would run out before you got money to buy more?: Never true Do you have trouble paying for medicines?: No Do you have trouble getting transportation to medical appointments?: No Do you have trouble paying your heating and electricity bill?: No Do you have trouble taking care of your child, family member or friend?: No Do you have trouble with day-to-day activities such as bathing, preparing meals, shopping, managing finances, etc.?: No Are you currently unemployed and looking for a job?: No Are you interested in more education?: No Please select the resources that you would like help with: None Currently or been in a relationship where the following occur: No concerns reported THRIVE Score: 0 AUDIT C Alcohol Use Questionnaire (AUDIT-C) 1. How often do you have a drink containing alcohol?: Monthly or less 2. How many drinks containing alcohol do you have on a typical day when you are drinking?: 1 or 2 3. How often do you have six or more drinks on one occasion?: Never Total Score: 1 TORY-7 AMB Questionnaire TORY-7 Date TORY - 7 assessed: 10/06/22 Feeling nervous, anxious, or on edge: 0 = Not at all Not being able to stop or control worryin = Not at all Worrying too much about different things: 1 = Several days Trouble relaxin = Not at all Being so restless that it is hard to sit still: 0 = Not at all Becoming easily annoyed or irritable: 1 = Several days Feeling afraid as if something awful might happen: 0 = Not at all Total TORY-7 score (0-4 normal; 5-9 mild; 10-14 moderate; 15-21 severe): 2 Source: Developed by Drs. Franki Galvez, Juliann Hoover, Jadon Mathis and colleagues, with an educational christy from [employer]. Physical exam (Primary Care) Vital Signs: Last Vital Signs Pulse 85 02/08/25 08:24 Resp 14 02/08/25 08:24 BP 126/66 02/08/25 08:24 Pulse Ox 98 02/08/25 08:24 Oxygen Delivery Method Room Air 02/08/25 08:24 BMI result Body Mass Index 29.9 Tobacco/Smoking Status: Tobacco use Status Tobacco use date assessed 02/08/25 02/08/25 08:48 Patient Tobacco Use Status Never used Tobacco 02/08/25 08:26 e-Cigarette/Vaping Use Never Used 02/08/25 08:26 PHQ-9: PHQ-9 Score PHQ-9: Total score 3 02/08/25 08:57 Thrive Assessment: Date of Thrive Assessment Date Thrive assessed 02/05/25 02/08/25 08:26 Currently or been in a relationship where the following occur: No concerns reported Results AMB Hemoglobin A1c AMB Hemoglobin A1c 5.4 % Last Edit by Rasheeda May CMA on 02/08/25 08:45 Results Reviewed Results Reviewed: Laboratory Last Values Hgb A1c (Clinic) 5.4 % (4.0-6.0) 02/08/25 08:43 Coding Level of Care Code Est Pt Level 5 (90178) Diagnoses Severe obstructive sleep apnea G47.33 Elevated fasting blood sugar R73.01 Cough R05.9 Mixed hyperlipidemia E78.2 Hyperlipidemia type: mixed hyperlipidemia Screening for prostate cancer Z12.5 Elevated blood pressure reading R03.0 Assessment & Plan Assessment & Plan (1) Severe obstructive sleep apnea: Code(s): G47.33 - Obstructive sleep apnea (adult) (pediatric) Category: Medical Plan: Recent sleep study showed over 37 hypopnea events per hour Severe sleep apnea He has an old CPAP machine. Strongly encouraged him to follow-up with sleep medicine. Continue weight loss Sleep on side We discussed that I suspect his poor sleep and sleep apnea are underpinning many of his complaints such as hypertension, poor libido and ED and also fatigue. (2) Elevated fasting blood sugar: Code(s): R73.01 - Impaired fasting glucose Category: Medical Plan: A1c 5.4% Continue diet low in sugars and starches (3) Cough: Code(s): R05.9 - Cough, unspecified Category: Medical Plan: Ongoing cough and mild shortness of breath. This has been chronic. PFTs showed mild restrictive disease and chest x-ray suggested chronic interstitial lung disease. He still has symptoms. I am referring him to pulmonology (4) Hyperlipidemia: Code(s): E78.5 - Hyperlipidemia, unspecified Category: Medical Qualifiers: Hyperlipidemia type: mixed hyperlipidemia Qualified Code(s): E78.2 - Mi xed hyperlipidemia Plan: LDL cholesterol is much too high but patient says he has changed his diet and has been exercising Has not lost weight yet but he says his clothes fit better. Work on additional exercise healthy diet low in saturated fats and cholesterol and weight loss. Will check lipids (5) Screening for prostate cancer: Code(s): Z12.5 - Encounter for screening for malignant neoplasm of prostate Category: Medical Plan: PSA has been within normal range. He wants to discuss PSA versus FAROOQ testing with his urologist whom he is seeing for low libido and ED (6) Elevated blood pressure reading: Code(s): R03.0 - Elevated blood-pressure reading, without diagnosis of hypertension Category: Medical Plan: Blood pressures at home are high. Recommended medication but he declines this Continue working on a diet low in salt and sodium. Continue exercise & continue working at weight loss. Will follow Plan Patient has issues with libido and ED. He has an appointment with Urology. He was concerned regarding his testosterone today. His testosterone levels are in the normal range. I suggested to the patient that he indeed follow-up with Urology. However, I also think that his severe sleep apnea may be a significant cause of his symptoms. Recommend he treat sleep apnea with sleep Medicine group and follow-up with urology for other causes his symptoms. He will return in about 3 months follow-up hypertension, hyperlipidemia and chronic conditions. Orders: Orders AMB Hemoglobin A1c Today R73.01 - Impaired fasting glucose Comprehensive Spencer. Panel Fast Today Z00.00 - Encounter for general adult medical examination without abnormal findings Lipid Panel Today Z00.00 - Encounter for general adult medical examination without abnormal findings Referrals Pulmonology Referral R05.9 - Cough, unspecified, R06.02 - Shortness of breath Medications: Refilled CPAP (CPAP Machine/Device) Auto-titrating CPAP With Mask, Tubing and Heated Humidifier (APAP) Pressure Range: 5-20 cm H2O, As directed, 999 days 1 ea 0RF G47.33 - Obstructive sleep apnea (adult) (pediatric)
== END 2025-02-08 09:33 | disposition home or self-care (01) ==
LOC: HO.HMCFM 08:15
PROVIDERS: PCP Family Medicine; Visit Provider Family Medicine
DX: R73.01 Impaired fasting glucose (principal)

== ENCOUNTER → 2025-02-08 08:13 | Outpatient (BNVA) | payer MEDICARE, SELFPAY | PROVIDERS: PCP Family Medicine; Visit Provider Family Medicine | DX: G47.33 Obstructive sleep apnea (adult) (pediatric) (principal); R05.9 Cough, unspecified; R73.01 Impaired fasting glucose; E78.2 Mixed hyperlipidemia; R03.0 Elevated blood-pressure reading, without diagnosis of hypertension | CPT/HCPCS: 83036; 99212 ==